=== PATIENT | female | born 1985 | race Caucasian/White ===

== ENCOUNTER 2020-12-13 14:12 | Emergency (ER) | payer SELFPAY ==
[2020-12-13 14:13] VITALS: BP 131/84; PULSE 87; RESP 16; TEMP 36.5; O2SAT 97; BMI 25.5
--- NOTE | 2020-12-13 14:41 | CT_ITS ---
STUDY: CT ABDOMEN AND PELVIS WITHOUT CONTRAST REASON FOR EXAM: Female, 35 years old. Pain RADIATION DOSAGE (If Supplied By Facility): CTDIvol = ( 7.72 ) mGy, DLP = ( 389.44 ) mGycm TECHNIQUE: Transaxial images were obtained from the dome of the diaphragm to the symphysis pubis without oral contrast, and without intravenous contrast. Sagittal and coronal images were reconstructed. Individualized dose optimization techniques were used for this CT. COMPARISON: None. FINDINGS: There are a few emphysematous blebs within the right lung base. There is minimal right lower lobe atelectasis. The visualized portions of the heart are within normal limits. The liver is enlarged. There is moderate free fluid within the abdomen and pelvis. Hounsfield units in the range of simple fluid. The gallbladder appears partially contracted. Normal spleen. Normal pancreas. Normal bilateral adrenal glands. Normal right kidney. Normal left kidney. Normal visualized stomach. There are distended loops of small bowel in the left upper quadrant. There is a thick walled appearance of the small bowel throughout. There is lesser caliber large bowel. There is an edematous appearance of the descending colon with wall thickening. The appendix is visualized and appears normal. Normal abdominal aorta. Normal inferior vena cava. There multiple small 1 cm reactive retroperitoneal lymph nodes. There are reactive appearing borderline lymph nodes in the mesentery. Normal urinary bladder. Normal visualized uterus. There is edema of the anterior abdominal wall. There are diffuse degenerative changes of the visualized lumbar spine. At the level of T12-L1 there is disc space narrowing and mild neural foramina narrowing mild central stenosis. CT/Abdomen/Pelvis without Cont IMPRESSION: Moderate to severe Free fluid/ascites. This accompanies significant wall thickening of the small bowel with distention. Consider diffuse enteritis with inflammatory ascites. Consider underlying inflammatory bowel disease including Crohn''s disease. The differential would include the possibility of ascites and small bowel edema although inflammatory change into radius is thought to be more likely. Otherwise mild to moderate constipation and no appendicitis. Electronically Signed: Amy Das MD at 15:59 EDT Tel , Service support ,
--- NOTE | 2020-12-13 14:41 | EX.ED.DYSGE1 ---
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 She states that she normally will get a flare of this and consist of diarrhea which she has had over the last couple of weeks. Patient states that her diarrhea usually resolves and her abdomen gets less swollen. She states that her diarrhea is improving and her abdomen is not improving. Patient does describe flank pain in the right flank for the last couple of weeks which is intermittent. Patient denies urinary complaints. She denies vaginal complaints. She still has mild diarrhea. Patient denies any liver problems. She states she is not a drinker. Patient has no history of Crohn's or ulcerative colitis. Patient has not seen a GI doctor since she was 20. She has not seen a primary care physician in many years. She states she has not seen any physician since she delivered her last child 5 years ago. [facility] Medical History (Updated 12/13/20 @ 15:06 by Dena Holder) Borderline diabetes Home Medications furosemide [Lasix] 20 mg PO DAILY #13 tab 12/13/20 [Rx Last Taken Unknown] spironolactone 50 mg PO DAILY #13 tab 12/13/20 [Rx Last Taken Unknown] Allergy/AdvReac Type Severity Reaction Status Date / Time acetaminophen [From Percocet] AdvReac Angioedema Verified 12/13/20 14:16 hydrocodone AdvReac Angioedema Verified 12/13/20 14:16 oxycodone AdvReac Angioedema Verified 12/13/20 14:16 Sulfa (Sulfonamide AdvReac Angioedema Verified 12/13/20 14:16 Antibiotics) Surgical History (Updated 12/13/20 @ 15:06 by Dena Holder) H/O section Social History Smoking Status: Never smoker ROS ROS ED Constitutional Constitutional ED: Denies chills, fever(s) or sweats Eyes Eyes: Denies blurry vision ENT ENT ED: Denies rhinorrhea or sore throat Cardiovascular Cardiovascular: Denies chest pain or palpitations Respiratory/Chest Respiratory/Chest: Denies cough, dyspnea or sputum Gastrointestinal Gastrointestinal: Reports abdominal pain, diarrhea, nausea and vomiting Genitourinary Genitourinary ED: Denies dysuria or hematuria Musculoskeletal Musculoskeletal: Denies arthralgias or myalgias Integumentary Denies abscess or rash Neurologic Neurologic: Denies headache(s) or paresthesias Psychiatric Psychiatric: Denies anxiety or depression EXAM Physical Exam Const Vital Signs: 12/13/20 14:13 12/13/20 15:04 12/13/20 17:00 Temperature 97.7 F L 97.2 F L 98.5 F Temperature Source Temporal Temporal Oral Pulse Rate 87 88 80 Respiratory Rate 16 15 16 Blood Pressure 131/84 H 130/81 H 137/91 H Blood Pressure Mean 99 97 106 Pulse Ox 97 97 97 Oxygen Delivery Method Room Air Room Air Room Air Positive well nourished General Appearance ED: NAD; Negative for pallor HEENT Reports moist mucous membranes Negative for trauma Eyes PERRL and EOMs intact bilaterally General Eye ED: Negative for pale conjunctiva or scleral icterus Resp normal respiratory effort and clear to auscultation bilaterally Cardio regular rate and regular rhythm GI non-tender Inspection: abdominal distention Auscultation: hypoactive bowel sounds Back/Spine General Back: CVA tenderness right Extremity normal to inspection General Extremety ED: Negative for tenderness Neuro oriented x3 and CN's II-XII intact bilaterally Sensorium / Orientation: alert Psych mental status grossly normal Skin no rashes or lesions noted and no wounds General Skin Exam: Negative for jaundice or pallor MDM MDM MDM Narrative Medical decision making narrative: Patient presenting with ascites which she states is an acute on chronic issue. She states her diarrhea usually resolves in her stomach swelling does go down. 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 The last physician she saw was when she gave 5 years ago. Patient's vital signs are stable and she is afebrile. Lab work today shows a normal white blood cell count of 4.6, hemoglobin 13.1, K 31.0, platelets 368. Renal function and electrolytes are normal with exception of elevated chloride at 112. Glucose is 249 without anion gap. AST and ALT are slightly elevated however her other LFTs are normal. Her albumin is 2.4 and she states this is normal for her. Patient states in the past she has been treated with albumin for the symptoms but this is distantly many years ago. CT of the abdomen pelvis shows moderate to severe ascites as well as findings with diffuse enteritis. Patient has no history of UC or Crohn's colitis. I discussed the case with Dr. Middleton at [facility] who recommended putting the patient on Lasix 20 mg p.o. daily x2 weeks as well as spironolactone 50 mg p.o. daily x2 weeks and he would see her in follow-up. She was given his phone number. Patient is given return precautions. Impression: 1. Ascites 2. History of protein loss enteritis 3. Hematuria Lab Data Attestation: I reviewed the patient's lab results. Labs: Laboratory Results - last 24 hr 12/13/20 12/13/20 12/13/20 14:45 14:48 15:12 WBC 4.6 RBC 4.09 L Hgb 13.1 Hct 38.0 MCV 92.9 MCH 32.0 MCHC 34.5 RDW Std Deviation 41.9 RDW Coeff of Miguel 12.3 Plt Count 368 MPV 9.8 Immature Gran % (Auto) 0.200 Neut % (Auto) 81.5 H Lymph % (Auto) 8.1 L [place] % (Auto) 7.8 Eos % (Auto) 2.0 Baso % (Auto) 0.4 Absolute Neuts (auto) 3.7 Absolute Lymphs (auto) 0.37 L Nucleated RBC % 0 Differential Comment SCANNED Platelet Estimate ADEQUATE RBC Morphology NORM C+C Sodium 143 Potassium 4.0 Chloride 112 H Carbon Dioxide 25.0 Anion Gap 6 BUN 10 Creatinine 0.42 L Estim Creat Clear Calc 166.62 Est GFR (MDRD) Af Amer 223 Est GFR (MDRD) Non-Af 185 BUN/Creatinine Ratio 23.8 H Glucose 249 H Calcium 7.5 L Total Bilirubin 0.20 Direct Bilirubin 0.07 AST 54 H ALT 78 H Alkaline Phosphatase 91 Total Protein 5.3 L Albumin 2.4 L Globulin 2.9 Lipase 116 Urine Color Yellow Urine Clarity Sl. Cloudy Urine pH 5.0 Ur Specific [place] 1.025 Urine Protein 30 H Urine Glucose (UA) 250 H Urine Ketones 5 H Urine Occult Blood 50 H Urine Nitrite Negative Urine Bilirubin Negative Urine Urobilinogen Normal Ur Leukocyte Esterase Negative Urine RBC 5-10 SEEN Urine WBC 0 SEEN Ur Squamous Epith Cells 5-10 SEEN Amorphous Sediment 1+ URATE Urine Bacteria 0 SEEN Urine Mucus 0 SEEN Radiography Diagnostic Testing: Radiology Impression Abdomen/Pelvis CT 12/13/20 14:41 IMPRESSION: Moderate to severe Free fluid/ascites. This accompanies significant wall thickening of the small bowel with distention. Consider diffuse enteritis with inflammatory ascites. Consider underlying inflammatory bowel disease including Crohn''s disease. The differential would include the possibility of ascites and small bowel edema although inflammatory change into radius is thought to be more likely. Otherwise mild to moderate constipation and no appendicitis. Electronically Signed: Amy Das MD at 15:59 EDT Tel , Service support , Discharge Plan Triage Chief Complaint: Flank Pain ED Provider: Angel Ya Dx/Rx/DC Orders Instructions: ED Ascites Prescriptions: New furosemide [Lasix] 20 mg tablet 20 mg PO DAILY Qty: 13 RF: 0 spironolactone 50 mg tablet 50 mg PO DAILY Qty: 13 RF: 0 Primary Care Provider: Care Physician,No Primary Referrals: Care Physician,No Primary [Primary Care Provider] - Activity Restrictions/Additional Instructions: I discussed your case with Dr. Middleton from [facility] who is currently on-call for gastrointestinal services. He recommended putting you on Lasix 20 mg p.o. daily as well as spironolactone 50 mg p.o. daily for 2 weeks. He states that he is happy to see you in follow-up. His phone number is [phone]. Please call for an appointment. Return for any new or worsening symptoms as discussed. Disposition Disposition: Home, Self Care
[2020-12-13 14:57] LABS: Absolute Lymphocyte Count 0.37 X10^3/uL (0.83-4.51); Absolute Neutrophil Count 3.7 X10^3/uL (2.0-7.7); Basophil# 0.02 X10^3/uL; Basophil% 0.4 % (0-1); Eosinophil# 0.09 X10^3/uL; Hemoglobin 13.1 g/dL (12.0-15.0); Lymphocyte # 0.37 X10^3/ul (0.83-4.51); Lymphocyte % 8.1 % (19-41); Mean Corp Hgb Conc 34.5 g/dL (32-36); Mean Corpuscular Volume 92.9 fL (81-99); Mean Platelet Vol. 9.8 fl (6.2-12.0); Monocyte# 0.36 X10^3/uL; Monocyte% 7.8 % (0-10); NRBC Flagged by Analyzer 0 % (0-5); Neutrophil # 3.74 X10^3/uL (2.7-7.7); Neutrophil % 81.5 % (47-70); POSITIVE DIFFERENTIAL YES; Platelet Count 368 K/mm3 (150-450); RBC Distribution Width CV 12.3 % (11.6-14.6); RBC Distribution Width SD 41.9 fl (35.1-43.9); Red Blood Count 4.09 M/mm3 (4.2-5.4); White Blood Count 4.6 K/mm3 (4.4-11.0)
[2020-12-13 14:58] LABS: Differential Indicated SCAN CRITERIA MET
[2020-12-13 15:04] VITALS: BP 130/81; PULSE 88; RESP 15; TEMP 36.2; O2SAT 97
[2020-12-13 15:16] LABS: AST(SGOT) 54 U/L (15-37); Alanine Aminotransfer ALT/SGPT 78 U/L (13-56); Albumin, Serum 2.4 g/dL (3.2-5.0); Alkaline Phosphatase 91 U/L (45-117); Anion Gap 6 (5-15); BUN 10 mg/dL (7-18); BUN/Creat Ratio 23.8 RATIO (10-20); Bilirubin, Direct 0.07 mg/dL (0.00-0.30); Calcium,Total 7.5 mg/dL (8.5-10.1); Chloride 112 mmol/L (98-107); Creatinine, Serum 0.42 mg/dL (0.55-1.02); EST Glomerular Filtration Rate 185 mL/min (>60); Est Glom Filt Rate - Afr Amer 223 mL/min (>60); Estimated Creatinine Clearance 166.62 ml/min; Globulin 2.9 g/dL (2.2-4.2); Glucose 249 mg/dL (74-106); Lipase 116 U/L (73-393); Protein, Total 5.3 g/dL (6.4-8.2); Sodium Level 143 mmol/L (136-145)
[2020-12-13 15:28] LABS: Bacteria 0 SEEN /hpf (None Seen); Mucous, Urine 0 SEEN /hpf (<or=2+); White Blood Cells 0 SEEN /hpf (0-5)
[2020-12-13 15:29] LABS: Color, Urine Yellow (Yellow); Glucose, Dipstick 250 mg/dl (Normal); Ketone-Dipstick 5 mg/dl (Negative); Leukocyte Esterase-Dipstick Negative /ul (Negative); Nitrite-Dipstick Negative (Negative); Occult Blood-Urine 50 /ul (Negative); Protein-Dipstick 30 mg/dl (Negative); Specific Gravity, Urine 1.025 (1.002-1.030); Urine Bilirubin Dipstick Negative (Negative); Urine Clarity Sl. Cloudy (Clear); Urine Urobilinogen Normal (Normal)
[2020-12-13 15:41] LABS: Amorphous Sediment 1+ URATE; Red Blood Cells-Urine 5-10 SEEN /hpf (0-5); Squamous Epithelial Cells - UA 5-10 SEEN /hpf (5-10)
[2020-12-13 16:38] LABS: Differential Comment SCANNED; Platelet Estimate ADEQUATE (ADEQ); Red Cell Morphology NORM C+C NORMAL (NORM C&C)
[2020-12-13 17:00] VITALS: BP 137/91; PULSE 80; RESP 16; TEMP 36.9; O2SAT 97
[2020-12-13 18:19] VITALS: BP 130/79; PULSE 79; RESP 17; O2SAT 97
[2020-12-13] MEDS: Spironolactone 50 MG Tablet PO (18:27)
[2020-12-13] MEDS: Furosemide 20 MG Tablet PO (18:27)
== END 2020-12-13 18:30 | disposition home or self-care (01) ==
PROVIDERS: Emergency Provider Student in an Organized Health Care Education/Training Program
DX: R18.8 Other ascites (principal); R31.9 Hematuria, unspecified; K52.89 Other specified noninfective gastroenteritis and colitis
CPT/HCPCS: 74176; 80048; 80076; 81001; 83690; 85025; 99284; A4216

== ENCOUNTER 2021-01-17 05:15 | Emergency (ER) | payer SELFPAY ==
[2021-01-17 05:15] VITALS: BP 122/79; PULSE 89; RESP 20; TEMP 37.6; O2SAT 95; BMI 24.5
[2021-01-17 05:18] VITALS: BP 122/79; PULSE 89; RESP 20; TEMP 37.6; O2SAT 95
--- NOTE | 2021-01-17 05:42 | EX.ED.DYSGE1 ---
HPI History of Present Illness Chief Complaint: Abd Pain Narrative Narrative: Patient is a 35-year-old female who states she has a history of a protein deficiency syndrome. She states she was diagnosed with Covid about 10 days ago and this has since caused her syndrome to flareup. She states she has had generalized abdominal pain with persistent diarrhea ever since her Covid diagnosis. She states she will have symptoms like this in the past when her electrolytes are off or she is dehydrated. She states that as she has been trying [id number] medications with minimal symptom improvement she is concerned she may need IV treatment and therefore comes in for evaluation [facility] Medical History Borderline diabetes Protein deficiency Home Medications dexamethasone [Decadron] 6 mg PO DAILY #10 tab 01/17/21 [Rx Last Taken Unknown] hyoscyamine sulfate [Levsin] 0.125 mg PO TID PRN #30 tab 01/17/21 [Rx Last Taken Unknown] hyoscyamine sulfate [Levsin] 0.125 mg PO TID PRN PRN 01/17/21 [History Last Taken Unknown] Allergy/AdvReac Type Severity Reaction Status Date / Time acetaminophen [From Percocet] AdvReac Angioedema Verified 01/17/21 05:19 guaifenesin [From Mucinex] AdvReac Other Verified 01/17/21 05:19 hydrocodone AdvReac Angioedema Verified 01/17/21 05:19 oxycodone AdvReac Angioedema Verified 01/17/21 05:19 Sulfa (Sulfonamide AdvReac Angioedema Verified 01/17/21 05:19 Antibiotics) Surgical History H/O section Social History Smoking Status: Never smoker ROS ROS ED Constitutional Constitutional ED: Reports fever(s); Denies chills ENT ENT ED: Denies sore throat Cardiovascular Cardiovascular: Denies chest pain Respiratory/Chest Respiratory/Chest: Denies cough or dyspnea Gastrointestinal Gastrointestinal: Reports abdominal pain and diarrhea; Denies nausea or vomiting Genitourinary Genitourinary ED: Denies dysuria Musculoskeletal Musculoskeletal: Denies myalgias Integumentary Denies rash Neurologic Neurologic: Denies headache(s) Hematologic/Lymphatic Hematologic/Lymphatic: Denies easy bleeding or easy bruising EXAM Physical Exam Const Vital Signs: 01/17/21 05:15 01/17/21 05:18 Temperature 99.7 F H 99.7 F H Temperature Source Temporal Temporal Pulse Rate 89 89 Respiratory Rate 20 H 20 H Blood Pressure 122/79 H 122/79 H Blood Pressure Mean 93 93 Pulse Ox 95 95 Positive well nourished and well developed General Appearance ED: well developed HEENT HEENT Narrative: Mucous membranes are dry and tacky Eyes PERRL and EOMs intact bilaterally Neck supple Neck Narrative: Positive anterior cervical lymphadenopathy Resp normal respiratory effort and clear to auscultation bilaterally Cardio regular rate and regular rhythm GI non-distended GI Narrative: Abdomen is soft and nondistended with hyperactive bowel sounds. There is mild diffuse pain on palpation without voluntary guarding or rigidity Palpation: soft Extremity normal to inspection Neuro oriented x3 and CN's II-XII intact bilaterally Sensorium / Orientation: alert Psych mental status grossly normal Skin no rashes or lesions noted Skin Narrative: Skin turgor is slightly increased MDM MDM MDM Narrative Medical decision making narrative: Patient presented to the ER with a low-grade temperature most consistent with her Covid diagnosis. As she stated this was a recurrent problem for her based on her protein deficiency syndrome I did elect to perform basic laboratory studies but felt no need for a CT scan at this time. Work-up revealed no clinically significant findings and after IV hydration and treatment of her pain she reported improvement of symptoms. Therefore at this time as work-up reveals no acute findings and her abdomen remained soft and nonsurgical on exam I do not feel there is need for further work-up and she is safe to discharge. Lab Data Labs: Laboratory Results - last 24 hr 01/17/21 01/17/21 01/17/21 05:25 05:25 06:03 WBC 3.6 L RBC 4.02 L Hgb 12.6 Hct 36.9 L MCV 91.8 MCH 31.3 MCHC 34.1 RDW Std Deviation 39.6 RDW Coeff of Miguel 11.7 Plt Count 258 MPV 10.1 Immature Gran % (Auto) 0.300 Neut % (Auto) 83.3 H Lymph % (Auto) 10.8 L [place] % (Auto) 5.0 Eos % (Auto) 0.6 Baso % (Auto) 0.0 Absolute Neuts (auto) 3.0 Absolute Lymphs (auto) 0.39 L Nucleated RBC % 0 Differential Comment SCANNED Sodium 137 Potassium 4.1 Chloride 108 H Carbon Dioxide 22.0 Anion Gap 7 BUN 8 Creatinine 0.39 L Estim Creat Clear Calc 172.31 Est GFR (MDRD) Af Amer 242 Est GFR (MDRD) Non-Af 200 BUN/Creatinine Ratio 20.4 H Glucose 249 H Calcium 6.7 L Total Bilirubin 0.20 Direct Bilirubin 0.08 AST 51 H ALT 49 Alkaline Phosphatase 138 H Total Protein 4.6 L Albumin 1.4 L Globulin 3.2 Lipase 129 Urine Test Negative Discharge Plan Triage Chief Complaint: Abd Pain ED Provider: Rashad Weber Dx/Rx/DC Orders Clinical Impression: COVID-19, Dehydration, Diarrhea Instructions: Coronavirus Disease 2019 (COVID-19): Caring for Yourself or Others, Dehydration Prescriptions: New dexamethasone [Decadron] 6 mg tablet 6 mg PO DAILY Qty: 10 RF: 0 hyoscyamine sulfate [Levsin] 0.125 mg tablet 0.125 mg PO TID PRN (Reason: abdomial pin) Qty: 30 RF: 0 No Action hyoscyamine sulfate [Levsin] 0.125 mg Tablet 0.125 mg PO TID PRN PRN (Reason: STOMACH CRAMPS) RF: 0 Primary Care Provider: Care Physician,No Primary Referrals: Elsa Solomon MD [STAFF PHYSICIAN] - 3-5 Days if not improving Care Physician,No Primary [Primary Care Provider] - Disposition Disposition: Home, Self Care
[2021-01-17] MEDS: 0.9% Normal Saline 1,000 ML 999 ML IV (05:44)
[2021-01-17] MEDS: Ondansetron 4 MG/2 ML Vial IV (05:44)
[2021-01-17] MEDS: Morphine 4 MG/ML Syringe IV ×2 (05:44→07:47)
[2021-01-17] MEDS: dexAMETHasone 10 MG/ML Vial IV (05:44)
[2021-01-17 06:02] LABS: Absolute Lymphocyte Count 0.39 X10^3/uL (0.83-4.51); Eosinophil# 0.02 X10^3/uL; Eosinophils% 0.6 % (0-5); Hematocrit 36.9 % (37-47); Hemoglobin 12.6 g/dL (12.0-15.0); Lymphocyte # 0.39 X10^3/ul (0.83-4.51); Lymphocyte % 10.8 % (19-41); Mean Corp Hgb Conc 34.1 g/dL (32-36); Mean Corpuscular Hgb 31.3 pg (27.0-32.0); Mean Corpuscular Volume 91.8 fL (81-99); Mean Platelet Vol. 10.1 fl (6.2-12.0); Monocyte# 0.18 X10^3/uL; NRBC Flagged by Analyzer 0 % (0-5); Neutrophil # 3.01 X10^3/uL (2.7-7.7); Neutrophil % 83.3 % (47-70); POSITIVE DIFFERENTIAL YES; Platelet Count 258 K/mm3 (150-450); RBC Distribution Width CV 11.7 % (11.6-14.6); RBC Distribution Width SD 39.6 fl (35.1-43.9); Red Blood Count 4.02 M/mm3 (4.2-5.4); White Blood Count 3.6 K/mm3 (4.4-11.0)
[2021-01-17 06:05] LABS: Differential Indicated SCAN CRITERIA MET
[2021-01-17 06:20] LABS: AST(SGOT) 51 U/L (15-37); Alanine Aminotransfer ALT/SGPT 49 U/L (13-56); Albumin, Serum 1.4 g/dL (3.2-5.0); Alkaline Phosphatase 138 U/L (45-117); Anion Gap 7 (5-15); BUN 8 mg/dL (7-18); BUN/Creat Ratio 20.4 RATIO (10-20); Bilirubin, Direct 0.08 mg/dL (0.00-0.30); Calcium,Total 6.7 mg/dL (8.5-10.1); Chloride 108 mmol/L (98-107); Creatinine, Serum 0.39 mg/dL (0.55-1.02); EST Glomerular Filtration Rate 200 mL/min (>60); Est Glom Filt Rate - Afr Amer 242 mL/min (>60); Estimated Creatinine Clearance 172.31 ml/min; Globulin 3.2 g/dL (2.2-4.2); Glucose 249 mg/dL (74-106); Lipase 129 U/L (73-393); Potassium 4.1 mmol/L (3.5-5.1); Protein, Total 4.6 g/dL (6.4-8.2); Sodium Level 137 mmol/L (136-145)
[2021-01-17 06:25] LABS: Internal QC Validated? YES +Cl - CLEAR BKGD; Pregnancy, Urine Negative Negative
[2021-01-17 06:25] LABS: Differential Comment SCANNED
[2021-01-17 07:47] VITALS: BP 117/58; PULSE 90; RESP 16; TEMP 35
== END 2021-01-17 08:19 | disposition home or self-care (01) ==
PROVIDERS: Emergency Provider Emergency Medicine
DX: U07.1 COVID-19 (principal); E86.0 Dehydration
CPT/HCPCS: 80048; 80076; 81025; 83690; 85025; 96361; 96374; 96375; 99283; J7030; A4216; J2405

== ENCOUNTER → 2021-09-02 | Outpatient (CLI) | payer OTHER, SELFPAY ==
[2021-09-02 18:19] LABS: ALB/GLOB Ratio 0.8 RATIO (0.9-2.4); AST(SGOT) 24 U/L (15-37); Alanine Aminotransfer ALT/SGPT 41 U/L (13-56); Alkaline Phosphatase 59 U/L (45-117); Anion Gap 4 (5-15); BUN 12 mg/dL (7-18); BUN/Creat Ratio 29.2 RATIO (10-20); Calcium,Total 7.4 mg/dL (8.5-10.1); Chloride 110 mmol/L (98-107); Cholesterol 131 mg/dL (200); Creatinine, Serum 0.41 mg/dL (0.55-1.02); EST Glomerular Filtration Rate 189 mL/min (>60); Est Glom Filt Rate - Afr Amer 228 mL/min (>60); Globulin 2.5 g/dL (2.2-4.2); Glucose 187 mg/dL (74-106); High Density Lipoprotein 41 mg/dL; Magnesium 1.4 mg/dL (1.6-2.6); Potassium 3.7 mmol/L (3.5-5.1); Prealbumin 18.7 mg/dL (20.0-40.0); Protein, Total 4.5 g/dL (6.4-8.2); Sodium Level 139 mmol/L (136-145); Thyroid Stim Hormone (TSH) 1.85 uIU/mL (0.358-3.74); Triglycerides 129 mg/dL; Very Low Density Lipoprotein 26 mg/dL (5-40)
[2021-09-02 18:31] LABS: Hemoglobin A1c 7.4 % (3.8-5.6)
== END | disposition home or self-care (01) ==
LOC: MFPLAB 15:18
PROVIDERS: PCP Family Medicine; Referring Provider Family Medicine; Visit Provider Family Medicine
DX: R19.7 Diarrhea, unspecified (principal); E11.9 Type 2 diabetes mellitus without complications
CPT/HCPCS: 36415; 80053; 80061; 83036; 83735; 84134; 84443

== ENCOUNTER → 2021-09-03 | Outpatient (CLI) | payer OTHER, SELFPAY | END | disposition home or self-care (01) | LOC: MFPLAB 13:50 → LABSPEC 13:53 | PROVIDERS: PCP Family Medicine; Referring Provider Family Medicine; Visit Provider Family Medicine | DX: R19.7 Diarrhea, unspecified (principal); K90.49 Malabsorption due to intolerance, not elsewhere classified | CPT/HCPCS: 83630; 87177; 87209; 87493; 87506 ==

== ENCOUNTER → 2021-10-08 | Outpatient (CLI) | payer OTHER, SELFPAY ==
--- NOTE | 2021-10-08 07:19 | US_ITS ---
STUDY: ABDOMINAL ULTRASOUND - RIGHT UPPER QUADRANT REASON FOR VISIT: Female, 35 years old CIRRHOSIS TECHNIQUE: Ultrasound evaluation of the right upper quadrant was performed with real-time and static luu-scale imaging. TECHNICAL QUALITY: Adequate. COMPARISON: None. FINDINGS: Liver: The liver is moderately enlarged and measures 17.8 cm. There is increased echogenicity consistent with fatty infiltration. The bile ducts are within normal limits. There is hepatic color flow. The direction of portal flow is hepatopetal. There is no demonstrated mass lesion. Gallbladder: There is a contracted gallbladder. The gallbladder wall is slightly thickened and measures 3.2 mm. There is a negative sonographic Arzate''s sign. There is no pericholecystic fluid. There are no gallstones. Common Bile Duct (C.B.D.): The common bile duct measures 2.2 mm. Pancreas: There is diffuse atrophy of the pancreas. There is normal echogenicity of the pancreas. There is no demonstrated pancreatic mass or cyst. Right Kidney: Normal size of the right kidney. The right kidney measures 9.2 cm x 5 cm x 5.6 cm. Normal renal cortex. The right cortex measures 1.7 cm. There is no demonstrated renal mass or cyst. There is no right hydronephrosis. Small amount of ascites. US/Abdomen Limited IMPRESSION: Mild hepatomegaly and diffuse fatty infiltration of the liver. Small amount of ascites. Electronically Signed: Los Aguirre MD at 9:33 EDT ,
--- NOTE | 2021-10-08 07:19 | US_ITS ---
STUDY: ABDOMINAL ULTRASOUND - ELASTOGRAPHY REASON FOR VISIT: Female, 35 years old. History of cirrhosis. TECHNIQUE: Liver stiffness measurements were obtained on a Kuotus RS 85 ultrasound machine using a CA 1-7 probe following the SRU guidelines. 3 measurements were obtained using a 2-D-SWE method. The IQR/M was 15% suggesting a quality data set. TECHNICAL QUALITY: Adequate. COMPARISON: Comparison is made with prior study done earlier today. FINDINGS: Liver: Fatty infiltration of the liver. Median liver stiffness measured 18 kPa. US/Elastography Parenchyma/Organ IMPRESSION: Liver stiffness measures 18 kPa compatible with F3-F4 (Moderate to severe liver fibrosis) Metavir score. Electronically Signed: Los Aguirre MD at 9:52 EDT ,
== END | disposition home or self-care (01) ==
LOC: US 07:17
PROVIDERS: PCP Family Medicine; Referring Provider Family Medicine; Visit Provider Family Medicine
DX: K74.60 Unspecified cirrhosis of liver (principal); K76.0 Fatty (change of) liver, not elsewhere classified; R18.8 Other ascites
CPT/HCPCS: 76705; 76981

== ENCOUNTER → 2021-11-05 | Outpatient (CLI) | payer OTHER, SELFPAY ==
[2021-11-05 10:29] LABS: Prothrombin Time (Protime)PT. 13.2 SECONDS (11.7-14.9)
[2021-11-05 10:35] LABS: Absolute Neutrophil Count 4.5 X10^3/uL (2.0-7.7); Basophil# 0.01 X10^3/uL; Basophil% 0.2 % (0-1); Eosinophils% 1.8 % (0-5); Hematocrit 40.4 % (37-47); Lymphocyte % 9.1 % (19-41); Mean Corp Hgb Conc 34.7 g/dL (32-36); Mean Corpuscular Hgb 31.7 pg (27.0-32.0); Mean Corpuscular Volume 91.6 fL (81-99); Mean Platelet Vol. 10.1 fl (6.2-12.0); Monocyte# 0.39 X10^3/uL; Monocyte% 7.1 % (0-10); NRBC Flagged by Analyzer 0 % (0-5); Neutrophil # 4.46 X10^3/uL (2.7-7.7); Neutrophil % 81.4 % (47-70); POSITIVE DIFFERENTIAL YES; Platelet Count 419 K/mm3 (150-450); RBC Distribution Width CV 12.2 % (11.6-14.6); RBC Distribution Width SD 41.1 fl (35.1-43.9); Red Blood Count 4.41 M/mm3 (4.2-5.4); White Blood Count 5.5 K/mm3 (4.4-11.0)
[2021-11-05 10:43] LABS: Erythrocyte Sedimentation Rate 6 mm/hr (0-30)
[2021-11-05 10:53] LABS: Differential Indicated SCAN CRITERIA MET
[2021-11-05 11:00] LABS: ALB/GLOB Ratio 0.7 RATIO (0.9-2.4); AST(SGOT) 17 U/L (15-37); Alanine Aminotransfer ALT/SGPT 23 U/L (13-56); Alkaline Phosphatase 67 U/L (45-117); Anion Gap 7 (5-15); BUN 13 mg/dL (7-18); BUN/Creat Ratio 52.8 RATIO (10-20); Calcium,Total 7.4 mg/dL (8.5-10.1); Chloride 112 mmol/L (98-107); Creatinine, Serum 0.25 mg/dL (0.55-1.02); EST Glomerular Filtration Rate 341 mL/min (>60); Est Glom Filt Rate - Afr Amer 412 mL/min (>60); Globulin 2.7 g/dL (2.2-4.2); Glucose 106 mg/dL (74-106); Magnesium 1.8 mg/dL (1.6-2.6); Potassium 3.4 mmol/L (3.5-5.1); Prealbumin 23.6 mg/dL (20.0-40.0); Protein, Total 4.7 g/dL (6.4-8.2); Sodium Level 142 mmol/L (136-145)
[2021-11-05 11:03] LABS: CRP < 2.90 mg/L (0.0-3.0); Ferritin 16 ng/mL (8-252); LDH 121 U/L (84-246)
[2021-11-05 11:09] LABS: Hemoglobin A1c 5.7 % (3.8-5.6)
[2021-11-05 11:26] LABS: Platelet Estimate ADEQUATE (ADEQ); Red Cell Morphology NORM C+C NORMAL (NORM C&C)
[2021-11-05 11:28] LABS: HIV - WCH Non-Reactive (Nonreactive)
[2021-11-07 16:07] LABS: Endomysial Antibody IgA Negative (Negative); Immunoglobulin A 55 mg/dL (87-352)
[2021-11-07 18:07] LABS: t-Transglutaminase IgA <2 U/mL (0-3)
[2021-11-09 13:07] LABS: Anti-Centromere B Ab <0.2 AI (0.0-0.9); Anti-Chromatin <0.2 AI (0.0-0.9); Anti-Jo <0.2 AI (0.0-0.9); Anti-Scleroderma-70 AB <0.2 AI (0.0-0.9); RNP Ab 0.2 AI (0.0-0.9); SJOGREN'S Anti-SS-A test < 0.2 AI (0.0-0.9); SJOGREN'S Anti-SS-B test < 0.2 AI (0.0-0.9); Smith Ab <0.2 AI (0.0-0.9)
[2021-11-09 16:31] LABS: Anti-Mitochondrial AB <20.0 Units (0.0-20.0); Anti-dsDNA Ab <1 IU/mL (0-9)
[2021-11-11 15:08] LABS: Albumin 2.3 g/dL (2.9-4.4); Alpha-1-Globulins 0.2 g/dL (0.0-0.4); Alpha-2-Globulins 0.6 g/dL (0.4-1.0); Angiotensin Convert Enzyme 34 U/L (14-82); Ceruloplasmin 13.7 mg/dL (19.0-39.0); Cytoplasmic Ab (C-ANCA) <1:20 titer (Neg:<1:20); Gamma Globulin 0.4 g/dL (0.4-1.8); HEPATITIS B SURFACE AG Negative (Negative); Hep C Antibodies 0.1 s/co ratio (0.0-0.9); Hepatitis A IgM Antibody Negative (Negative); Hepatitis B Core AB IgM Negative (Negative); Immunoglobulin A 56 mg/dL (87-352); Immunoglobulin E 15 IU/mL (6-495); Immunoglobulin G 463 mg/dL (586-1602); PROEL- TOTAL PROTEIN 4.4 g/dL (6.0-8.5)
[2021-11-11 15:29] LABS: AFP, Tumor Marker 2.7 ng/mL (0.0-6.4); Anti-Smooth Muscle ABS 2 Units (0-19); Copper, Serum or Plasma 53 ug/dL (80-158); Haptoglobin 139 mg/dL (33-278); IMMUNOFIXATION RESULT,S Comment: (.); Immunoglobulin M 24 mg/dL (26-217); Perinuclear Ab (P-ANCA) <1:20 titer (Neg:<1:20)
== END | disposition home or self-care (01) ==
LOC: LAB 09:38
PROVIDERS: PCP Family Medicine; Referring Provider Internal Medicine Gastroenterology; Visit Provider Internal Medicine Gastroenterology
DX: K76.9 Liver disease, unspecified (principal); E46 Unspecified protein-calorie malnutrition; R19.7 Diarrhea, unspecified; E83.42 Hypomagnesemia
CPT/HCPCS: 36415; 80053; 80074; 82105; 82140; 82164; 82390; 82525; 82728; 82784; 82785; 83010; 83036; 83516; 83615; 83735; 84134; 84165; 85025; 85610; 85652; 86140; 86225; 86235; 86255; 86256; 86334; 86703

== ENCOUNTER → 2021-11-09 | Outpatient (CLI) | payer OTHER, SELFPAY ==
[2021-11-15 19:46] LABS: Calprotectin, Stool 101 ug/g (0-120)
[2021-11-16 20:07] LABS: Giardia Lamblia, Stool EIA Negative (Negative); Pancreatic Elastase, Fecal 58 (>200)
== END | disposition home or self-care (01) ==
PROVIDERS: PCP Family Medicine; Referring Provider Internal Medicine Gastroenterology; Visit Provider Internal Medicine Gastroenterology
DX: K76.9 Liver disease, unspecified (principal); K58.9 Irritable bowel syndrome, unspecified; R19.7 Diarrhea, unspecified
CPT/HCPCS: 82653; 83630; 83993; 87177; 87209; 87329; 87493; 87506

== ENCOUNTER → 2021-11-12 | Outpatient (CLI) | payer OTHER, SELFPAY ==
[2021-11-12 11:48] LABS: 24 Hour Urine Protein 81.9 mg/24HR (<150 MG/24HR); 24HR. UA Prot. Total Volume 1300 mL; Urine Protein (24 Hour) 6.3 mg/dL (<11.9)
== END | disposition home or self-care (01) ==
PROVIDERS: PCP Family Medicine; Referring Provider Internal Medicine Gastroenterology; Visit Provider Internal Medicine Gastroenterology
DX: R19.7 Diarrhea, unspecified (principal)
CPT/HCPCS: 81050; 84156

== ENCOUNTER → 2021-11-16 | Outpatient (CLI) | payer OTHER, SELFPAY | END | disposition home or self-care (01) | LOC: LAB 12:40 | PROVIDERS: PCP Family Medicine; Referring Provider Internal Medicine Gastroenterology; Visit Provider Internal Medicine Gastroenterology | DX: D83.9 Common variable immunodeficiency, unspecified (principal) | CPT/HCPCS: 36415; 82784; 82785; 82787; 84165 ==

== ENCOUNTER → 2022-05-12 | Outpatient (CLI) | payer MEDICAID, SELFPAY ==
[2022-05-12 10:25] LABS: Absolute Neutrophil Count 4.3 X10^3/uL (2.0-7.7); Basophil# 0.03 X10^3/uL; Basophil% 0.6 % (0-1); Eosinophil# 0.15 X10^3/uL; Eosinophils% 2.8 % (0-5); Hematocrit 42.5 % (37-47); Hemoglobin 13.7 g/dL (12.0-15.0); Lymphocyte % 7.5 % (19-41); Mean Corp Hgb Conc 32.2 g/dL (32-36); Mean Corpuscular Hgb 30.4 pg (27.0-32.0); Mean Corpuscular Volume 94.4 fL (81-99); Mean Platelet Vol. 9.8 fl (6.2-12.0); Monocyte# 0.46 X10^3/uL; Monocyte% 8.7 % (0-10); NRBC Flagged by Analyzer 0 % (0-5); Neutrophil # 4.25 X10^3/uL (2.7-7.7); POSITIVE DIFFERENTIAL YES; Platelet Count 450 K/mm3 (150-450); RBC Distribution Width CV 12.3 % (11.6-14.6); RBC Distribution Width SD 42.1 fl (35.1-43.9); White Blood Count 5.3 K/mm3 (4.4-11.0)
[2022-05-12 10:28] LABS: Differential Indicated SCAN CRITERIA MET
[2022-05-12 10:51] LABS: Hemoglobin A1c 6.5 % (3.8-5.6)
[2022-05-12 11:07] LABS: ALB/GLOB Ratio 0.7 RATIO (0.9-2.4); AST(SGOT) 22 U/L (15-37); Alanine Aminotransfer ALT/SGPT 38 U/L (13-56); Albumin, Serum 1.9 g/dL (3.2-5.0); Alkaline Phosphatase 130 U/L (45-117); Anion Gap 5 (5-15); BUN 16 mg/dL (7-18); BUN/Creat Ratio 56.5 RATIO (10-20); Calcium,Total 7.7 mg/dL (8.5-10.1); Chloride 113 mmol/L (98-107); Cholesterol 152 mg/dL (200); Creatinine, Serum 0.28 mg/dL (0.55-1.02); EST Glomerular Filtration Rate 289 mL/min (>60); Est Glom Filt Rate - Afr Amer 349 mL/min (>60); Globulin 2.9 g/dL (2.2-4.2); Glucose 109 mg/dL (74-106); High Density Lipoprotein 44 mg/dL; Potassium 4.6 mmol/L (3.5-5.1); Prealbumin 23.9 mg/dL (20.0-40.0); Protein, Total 4.8 g/dL (6.4-8.2); Sodium Level 141 mmol/L (136-145); Triglycerides 69 mg/dL; Very Low Density Lipoprotein 14 mg/dL (5-40)
[2022-05-12 11:08] LABS: Microalbumin,Random Urine < 5.0 mg/L (NO RANGE EST.)
== END | disposition home or self-care (01) ==
LOC: MFPLAB 09:30
PROVIDERS: PCP Family Medicine; Referring Provider Family Medicine; Visit Provider Family Medicine
DX: E46 Unspecified protein-calorie malnutrition (principal); K74.60 Unspecified cirrhosis of liver; E11.9 Type 2 diabetes mellitus without complications
CPT/HCPCS: 36415; 80053; 80061; 82043; 82140; 82570; 83036; 84134; 85025

== ENCOUNTER 2022-05-20 06:33 | Observation (INO) | payer OTHER, SELFPAY ==
[2022-05-20] VITALS (7 sets, daily range): BP systolic 112–132; BP diastolic 56–95; PULSE 67–90; RESP 14–18; TEMP 36.2–36.8; O2SAT 96–98; BMI 20.3; BMI 20.9
--- NOTE | 2022-05-20 07:32 | EDS_ITS ---
HPI HPI - GI History of Present Illness Chief Complaint: Abd Pain Informant: patient Abdominal Pain/Flank Pain Onset: Today Context: Sudden Onset Timing: Continuous and Waxes and wanes Quality: Aching, Cramping and Sharp Location: Epigastric, RUQ and LUQ Worsened by: Nothing Relieved by: - (Standing) Nausea/Vomiting/Emesis GI Symptom: Positive for Nausea and Vomiting Diarrhea/Melena/Hematochezia GI Symptom: Negative for Diarrhea, Melena or Hematochezia Associated Symptoms Associated Symptoms: Negative for Dysuria, Frequency or Hematuria Narrative Narrative: Presents with abdominal pain that began earlier this morning. Patient states it began suddenly. Patient states it has been constant but waxing and waning throughout the morning. Patient states her pain is over her upper abdomen. Patient states it is better when she is able to stand up. Patient states nothing makes it worse. Patient admits to some nausea and vomiting. Patient denies any hematemesis or coffee-ground emesis. Patient denies any diarrhea, melena, or hematochezia. Patient denies any urinary complaints. Patient denies any abnormal vaginal bleeding or discharge. [facility] Medical History Abdominal pain Borderline diabetes Bowel obstruction Diabetes Diarrhea Malabsorption due to intolerance, not elsewhere classified Protein deficiency Home Medications hyoscyamine sulfate 0.125 mg tablet (Levsin) 0.125 mg PO TID PRN abdomial pin #30 tabs 01/17/21 [Rx Last Taken 05/20/22] amoxicillin 500 mg capsule 500 mg PO BID ANTIBIOTIC 05/20/22 [History Last Taken 05/19/22] ertugliflozin 5 mg tablet (Steglatro) 5 mg PO DAILY DM 05/20/22 [History Last Taken 05/19/22] furosemide 40 mg tablet 40 mg PO DAILY FLUID 05/20/22 [History Last Taken 05/19/22] sxncil-iwvrtwhn-xqfijcm 24,000-76,000-120,000 unit capsule,delayed rel (Creon) 7 cap PO DAILY PANCREAS 05/20/22 [History Last Taken 05/19/22] magnesium oxide 400 mg (241.3 mg magnesium) tablet 400 mg PO DAILY SUPPLEMENT 05/20/22 [History Last Taken 05/19/22] sertraline 50 mg tablet 50 mg PO DAILY MOOD/ANXIETY 05/20/22 [History Last Taken 05/19/22] Allergy/AdvReac Type Severity Reaction Status Date / Time acetaminophen [From Percocet] AdvReac Angioedema Verified 05/20/22 06:36 guaifenesin [From Mucinex] AdvReac Other Verified 05/20/22 06:36 hydrocodone AdvReac Angioedema Verified 05/20/22 06:36 oxycodone AdvReac Angioedema Verified 05/20/22 06:36 Sulfa (Sulfonamide AdvReac Angioedema Verified 05/20/22 06:36 Antibiotics) Family History (Updated 10/14/21 @ 11:59 by Shakira Wang) Father Diabetes Father Diabetes Surgical History H/O section Social History Smoking Status: Never smoker alcohol intake: never ROS ROS ED Constitutional Constitutional ED: Denies chills or fever(s) Eyes Eyes: Denies blurry vision or change in vision ENT ENT ED: Denies rhinorrhea or sore throat Cardiovascular Cardiovascular: Denies chest pain or palpitations Respiratory/Chest Respiratory/Chest: Denies cough or dyspnea Gastrointestinal Gastrointestinal: Reports abdominal pain, nausea and vomiting; Denies diarrhea or melena Genitourinary Genitourinary ED: Denies dysuria or hematuria Musculoskeletal Musculoskeletal: Denies back pain or neck pain Integumentary Denies abscess or rash Neurologic Neurologic: Denies headache(s) or weakness Allergic/Immunologic Allergic/Immunologic ED: Denies mouth swelling or urticaria EXAM Physical Exam Const Vital Signs: 05/20/22 06:34 05/20/22 09:43 05/20/22 11:56 Temperature 97.1 F L Temperature Source Temporal Pulse Rate 78 67 83 Respiratory Rate 18 14 Blood Pressure 127/95 H 121/75 H 127/81 H Blood Pressure Mean 105 90 96 Pulse Ox 98 97 Oxygen Delivery Method Room Air Positive well nourished and well developed General Appearance ED: well developed HEENT Reports moist mucous membranes Neck supple and no JVD Resp normal respiratory effort and clear to auscultation bilaterally Cardio regular rate, regular rhythm and no murmurs GI normal to inspection, nondistended, normoactive bowel sounds Palpation: soft and tender epigastric, RLQ and RUQ; Negative for guarding or rebound tenderness present Extremity normal to inspection General Extremety ED: Negative for edema or tenderness General Extremity: Negative for edema Neuro oriented x3, CN's II-XII intact bilaterally and no sensory deficits noted Sensorium / Orientation: alert Motor Exam: strength 5/5 throughout Psych mental status grossly normal Skin no rashes or lesions noted MDM MDM MDM Narrative Medical decision making narrative: Patient was given IV fluids, morphine, and Zofran. CBC was obtained and was reviewed. There is a leukocytosis of 17.8 with a hemoglobin of 17.1 and hematocrit of 48.9. Platelets were also slightly elevated at 581. Comprehensive metabolic profile was obtained and was reviewed. Glucose was 244. Electrolytes were normal. Anion gap was normal. Alkaline phosphatase was slightly elevated at 139. Lipase was normal at 141. Serum hCG was obtained and was negative. Analysis was obtained and was reviewed. There is no evidence of urinary tract infection or hematuria. CT scan of the abdomen pelvis was obtained. On my interpretation, there are multiple dilated loops of small bowel. There is stool in the small bowel. There is no distention of the colon. Radiologist also interpreted the CT scan and agrees. Case was discussed with Dr. Denny from general surgery. She recommended placing an NG tube. This was ordered. Case was discussed with the hospitalist. He will admit the patient to his service. Patient understood and was agreeable with the plan. Patient was given a dose of Ativan prior to NG tube placement. Patient was also given Afrin nasal spray and topical lidocaine for NG tube placement. After attempts to place the NG tube unsuccessfully, patient refused any further attempts at NG tube placement. Lab Data Attestation: I reviewed the patient's lab results. Labs: Laboratory Results - last 24 hr 05/20/22 05/20/22 05/20/22 06:55 06:55 06:55 WBC 17.8 H RBC 5.48 H Hgb 17.1 H Hct 48.9 H MCV 89.2 MCH 31.2 MCHC 35.0 RDW Std Deviation 41.9 RDW Coeff of Miguel 13.0 Plt Count 581 H MPV 10.0 Immature Gran % (Auto) 0.800 Neut % (Auto) 88.2 H Lymph % (Auto) 5.3 L [place] % (Auto) 4.3 Eos % (Auto) 1.1 Baso % (Auto) 0.3 Absolute Neuts (auto) 15.7 H Absolute Lymphs (auto) 0.94 Nucleated RBC % 0 Sodium 138 Potassium 3.6 Chloride 105 Carbon Dioxide 24.0 Anion Gap 9 BUN 18 Creatinine 0.58 Estim Creat Clear Calc 98.60 Est GFR (MDRD) Af Amer 152 Est GFR (MDRD) Non-Af 126 BUN/Creatinine Ratio 30.9 H Glucose 244 H Calcium 8.1 L Total Bilirubin 0.30 AST 18 ALT 52 Alkaline Phosphatase 139 H Total Protein 6.2 L Albumin 2.6 L Globulin 3.6 Albumin/Globulin Ratio 0.7 L Lipase 141 Serum , Qual NEGATIVE Urine Color Urine Clarity Urine pH Ur Specific [place] Urine Protein Urine Glucose (UA) Urine Ketones Urine Occult Blood Urine Nitrite Urine Bilirubin Urine Urobilinogen Ur Leukocyte Esterase Urine RBC Urine WBC Ur Squamous Epith Cells Urine Bacteria Urine Mucus 05/20/22 08:50 WBC RBC Hgb Hct MCV MCH MCHC RDW Std Deviation RDW Coeff of Miguel Plt Count MPV Immature Gran % (Auto) Neut % (Auto) Lymph % (Auto) [place] % (Auto) Eos % (Auto) Baso % (Auto) Absolute Neuts (auto) Absolute Lymphs (auto) Nucleated RBC % Sodium Potassium Chloride Carbon Dioxide Anion Gap BUN Creatinine Estim Creat Clear Calc Est GFR (MDRD) Af Amer Est GFR (MDRD) Non-Af BUN/Creatinine Ratio Glucose Calcium Total Bilirubin AST ALT Alkaline Phosphatase Total Protein Albumin Globulin Albumin/Globulin Ratio Lipase Serum , Qual Urine Color Yellow Urine Clarity Sl. Cloudy Urine pH 6.0 Ur Specific [place] 1.015 Urine Protein 15 H Urine Glucose (UA) 1000 H Urine Ketones Negative Urine Occult Blood Negative Urine Nitrite Negative Urine Bilirubin Negative Urine Urobilinogen Normal Ur Leukocyte Esterase Negative Urine RBC 0 SEEN Urine WBC 0 SEEN Ur Squamous Epith Cells 0-5 SEEN Urine Bacteria 0 SEEN Urine Mucus 0 SEEN Radiography Diagnostic Testing: Clinical Impression(s) from Imaging Studies Abdomen/Pelvis CT 05/20/22 07:37 IMPRESSION: Distention of the distal small bowel with fluid and fecal laceration of the contents within the distal small bowel. There is evidence of a thickening of the small bowel wall. This has progressed as compared to prior study. Mild hepatomegaly. Small bilateral ovarian cysts. Electronically Signed: Los Aguirre MD at 9:51 EST , Discharge Plan Triage Chief Complaint: Abd Pain ED Provider: Jeff Walker Dx/Rx/DC Orders Clinical Impression: Small bowel obstruction, Abdominal pain Primary Care Provider: Henry Wise Disposition Disposition: Acute Care Hospital [facility]
--- NOTE | 2022-05-20 07:37 | CT_ITS ---
STUDY: CT ABDOMEN AND PELVIS WITH CONTRAST REASON FOR EXAM: Female, 36 years old. Abdominal pain . Nausea. Elevated white cell count as well as history of prior bowel obstruction. -- IV PO Contrast RADIATION DOSAGE (If Supplied By Facility): CTDIvol = ( 11.22 ) mGy, DLP = ( 308.51 ) mGycm TECHNIQUE: Transaxial images were obtained from the dome of the diaphragm to the symphysis pubis without oral contrast. Oral and amp; IV Gastrografin and amp; 75mL Isovue-370 was administered. Sagittal and coronal images were reconstructed. Individualized dose optimization techniques were used for this CT. COMPARISON: Comparison is made with prior study 12/13/2020. FINDINGS: Mild atelectasis at the right lung base. The visualized portions of the heart are within normal limits. Mild hepatomegaly. Normal gallbladder and extrahepatic biliary system. Normal spleen. Normal pancreas. Normal bilateral adrenal glands. Normal right kidney. Normal left kidney. Normal visualized stomach. There are dilated distal small bowel loops with fecal-like material in the distal ileum. There is wall thickening of the ileal loops with the fluid within the. The colon shows a mild degree of the fecal material. There is non-visualization of the appendix. Normal abdominal aorta. Normal inferior vena cava. Normal retroperitoneum. Normal urinary bladder. IUD is seen within the uterus. There is a 2.2 cm x 2 cm cyst in the right ovary. There is a 2.3 cm cyst in the left ovary. Normal abdominal wall. Normal osseous structures. CT/Abdomen/Pelvis WITH Contrast IMPRESSION: Distention of the distal small bowel with fluid and fecal laceration of the contents within the distal small bowel. There is evidence of a thickening of the small bowel wall. This has progressed as compared to prior study. Mild hepatomegaly. Small bilateral ovarian cysts. Electronically Signed: Los Aguirre MD at 9:51 EST ,
[2022-05-20] MEDS: Morphine 4 MG/ML Syringe IV ×2 (07:44→09:37)
[2022-05-20] MEDS: Ondansetron 4 MG/2 ML Vial IV (07:44)
[2022-05-20] MEDS: 0.9% Normal Saline 1,000 ML 1000 ML IV (07:45)
[2022-05-20 07:52] LABS: Absolute Lymphocyte Count 0.94 X10^3/uL (0.83-4.51); Absolute Neutrophil Count 15.7 X10^3/uL (2.0-7.7); Basophil# 0.05 X10^3/uL; Basophil% 0.3 % (0-1); Eosinophils% 1.1 % (0-5); Hematocrit 48.9 % (37-47); Hemoglobin 17.1 g/dL (12.0-15.0); Lymphocyte # 0.94 X10^3/ul (0.83-4.51); Lymphocyte % 5.3 % (19-41); Mean Corpuscular Hgb 31.2 pg (27.0-32.0); Mean Corpuscular Volume 89.2 fL (81-99); Monocyte# 0.77 X10^3/uL; Monocyte% 4.3 % (0-10); NRBC Flagged by Analyzer 0 % (0-5); Neutrophil # 15.68 X10^3/uL (2.7-7.7); Neutrophil % 88.2 % (47-70); Platelet Count 581 K/mm3 (150-450); RBC Distribution Width SD 41.9 fl (35.1-43.9); Red Blood Count 5.48 M/mm3 (4.2-5.4); White Blood Count 17.8 K/mm3 (4.4-11.0)
[2022-05-20 08:07] LABS: Internal QC Validated? YES +Cl - CLEAR BKGD; Pregnancy, Serum, hCG Quali. NEGATIVE Negative
[2022-05-20 08:08] LABS: ALB/GLOB Ratio 0.7 RATIO (0.9-2.4); AST(SGOT) 18 U/L (15-37); Alanine Aminotransfer ALT/SGPT 52 U/L (13-56); Albumin, Serum 2.6 g/dL (3.2-5.0); Alkaline Phosphatase 139 U/L (45-117); Anion Gap 9 (5-15); BUN 18 mg/dL (7-18); BUN/Creat Ratio 30.9 RATIO (10-20); Calcium,Total 8.1 mg/dL (8.5-10.1); Chloride 105 mmol/L (98-107); Creatinine, Serum 0.58 mg/dL (0.55-1.02); EST Glomerular Filtration Rate 126 mL/min (>60); Est Glom Filt Rate - Afr Amer 152 mL/min (>60); Globulin 3.6 g/dL (2.2-4.2); Glucose 244 mg/dL (74-106); Lipase 141 U/L (73-393); Potassium 3.6 mmol/L (3.5-5.1); Protein, Total 6.2 g/dL (6.4-8.2); Sodium Level 138 mmol/L (136-145)
[2022-05-20 08:54] LABS: Bacteria 0 SEEN /hpf (None Seen); Mucous, Urine 0 SEEN /hpf (<or=2+); Red Blood Cells-Urine 0 SEEN /hpf (0-5); White Blood Cells 0 SEEN /hpf (0-5)
[2022-05-20 08:59] LABS: Color, Urine Yellow (Yellow); Glucose, Dipstick 1000 mg/dl (Normal); Ketone-Dipstick Negative (Negative); Leukocyte Esterase-Dipstick Negative /ul (Negative); Nitrite-Dipstick Negative (Negative); Occult Blood-Urine Negative /ul (Negative); Protein-Dipstick 15 mg/dl (Negative); Specific Gravity, Urine 1.015 (1.002-1.030); Urine Bilirubin Dipstick Negative (Negative); Urine Clarity Sl. Cloudy (Clear); Urine Urobilinogen Normal (Normal)
[2022-05-20 09:05] LABS: Squamous Epithelial Cells - UA 0-5 SEEN /hpf (5-10)
[2022-05-20] MEDS: Oxymetazoline 0.05% 1 SPRAY SPRAY.BTL 2 SPRAY NASAL (11:22)
[2022-05-20] MEDS: LORazepam 2 MG/ML Syringe 0.5 MG IV (11:22)
--- NOTE | 2022-05-20 12:24 | PCM.HP.STD ---
HPI - General General Date of Admission: 05/20/22 Date of Service: 05/20/22 Chief Complaint: Abdominal pain HPI Narrative NAY AMAYA, is a 36 F with past medical history signal for diabetes mellitus type 2, chronic liver disease, protein-losing enteropathy who presents with abdominal pain. Patient states it started on the morning of her presentation pain was located in the periumbilical area in addition to the pain patient did experience nausea and vomiting. Presented to the emergency department as a result. CT of the abdomen and pelvis obtained demonstrated Distention of the distal small bowel with fluid and fecal laceration of the contents within the distal small bowel.? There is evidence of a thickening of the small bowel wall. The surgeon on-call Dr. Trinh Denny was notified who recommended admission to the medicine service with consultation to her service. [facility] Medical History Abdominal pain Borderline diabetes Bowel obstruction Diabetes Diarrhea Malabsorption due to intolerance, not elsewhere classified Protein deficiency Home Medications hyoscyamine sulfate 0.125 mg tablet (Levsin) 0.125 mg PO TID PRN abdomial pin #30 tabs 01/17/21 [Rx Last Taken 05/20/22] amoxicillin 500 mg capsule 500 mg PO BID ANTIBIOTIC 05/20/22 [History Last Taken 05/19/22] ertugliflozin 5 mg tablet (Steglatro) 5 mg PO DAILY DM 05/20/22 [History Last Taken 05/19/22] furosemide 40 mg tablet 40 mg PO DAILY FLUID 05/20/22 [History Last Taken 05/19/22] ayggax-cxzubsbg-uhyouhv 24,000-76,000-120,000 unit capsule,delayed rel (Creon) 7 cap PO DAILY PANCREAS 05/20/22 [History Last Taken 05/19/22] magnesium oxide 400 mg (241.3 mg magnesium) tablet 400 mg PO DAILY SUPPLEMENT 05/20/22 [History Last Taken 05/19/22] sertraline 50 mg tablet 50 mg PO DAILY MOOD/ANXIETY 05/20/22 [History Last Taken 05/19/22] Allergy/AdvReac Type Severity Reaction Status Date / Time metformin Allergy Diarrhea Verified 05/20/22 13:56 acetaminophen [From Percocet] AdvReac Angioedema Verified 05/20/22 06:36 guaifenesin [From Mucinex] AdvReac Other Verified 05/20/22 06:36 hydrocodone AdvReac Angioedema Verified 05/20/22 06:36 oxycodone AdvReac Angioedema Verified 05/20/22 06:36 Sulfa (Sulfonamide AdvReac Angioedema Verified 05/20/22 06:36 Antibiotics) Family History Father Diabetes Father Diabetes Surgical History H/O section Social History Smoking Status: Never smoker alcohol intake: never ROS ROS Narrative GENERAL: denies fever, chills, night sweats, weight loss, anorexia HEENT: denies headache, sinus congestion, or drainage, dysphagia RESPIRATORY: denies cough, sputum production, shortness of breath, dyspnea on exertion CARDIAC: denies chest pain, palpitations, orthopnea, PND GASTROINTESTINAL: abdominal pain, nausea, vomiting, melena, GENITOURINARY: denies dysuria, urgency, frequency, heamaturia EXTREMITY: denies swelling MUSCULOSKELETAL: denies current joint pain or tenderness NEUROLOGIC: denies focal numbness, weakness, tingling HEMATOLOGIC: denies easy bruising and/or hemorrhage INTEGUMENT: denies rashes PSYCHIATRIC: denies suicidal or homicidal ideation Vital Signs Vital Signs Vital Signs: 05/20/22 06:34 05/20/22 09:43 05/20/22 11:56 Temperature 97.1 F L Temperature Source Temporal Pulse Rate 78 67 83 Respiratory Rate 18 14 Blood Pressure 127/95 H 121/75 H 127/81 H Blood Pressure Mean 105 90 96 Pulse Ox 98 97 Oxygen Delivery Method Room Air 05/20/22 12:10 Temperature 98.1 F Temperature Source Temporal Pulse Rate 90 Respiratory Rate 18 Blood Pressure 132/90 H Blood Pressure Mean 104 Pulse Ox 97 Oxygen Delivery Method Room Air Weight Weight: 45.7 kg Body Mass Index (BMI) 20.3 Results Lab / Micro Data Result Diagrams: 05/20/22 06:55 05/20/22 06:55 Labs: Laboratory Results - last 24 hr 05/20/22 06:55: WBC 17.8 H, RBC 5.48 H, Hgb 17.1 H, Hct 48.9 H, MCV 89.2, MCH 31.2, MCHC 35.0, RDW Std Deviation 41.9, RDW Coeff of Miguel 13.0, Plt Count 581 H, MPV 10.0, Immature Gran % (Auto) 0.800, Neut % (Auto) 88.2 H, Lymph % (Auto) 5.3 L, [place] % (Auto) 4.3, Eos % (Auto) 1.1, Baso % (Auto) 0.3, Absolute Neuts (auto) 15.7 H, Absolute Lymphs (auto) 0.94, Nucleated RBC % 0 05/20/22 06:55: Sodium 138, Potassium 3.6, Chloride 105, Carbon Dioxide 24.0, Anion Gap 9, BUN 18, Creatinine 0.58, Estim Creat Clear Calc 98.60, Est GFR (MDRD) Af Amer 152, Est GFR (MDRD) Non-Af 126, BUN/Creatinine Ratio 30.9 H, Glucose 244 H, Calcium 8.1 L, Total Bilirubin 0.30, AST 18, ALT 52, Alkaline Phosphatase 139 H, Total Protein 6.2 L, Albumin 2.6 L, Globulin 3.6, Albumin/Globulin Ratio 0.7 L, Lipase 141 05/20/22 06:55: Serum , Qual NEGATIVE 05/20/22 08:50: Urine Color Yellow, Urine Clarity Sl. Cloudy, Urine pH 6.0, Ur Specific [place] 1.015, Urine Protein 15 H, Urine Glucose (UA) 1000 H, Urine Ketones Negative, Urine Occult Blood Negative, Urine Nitrite Negative, Urine Bilirubin Negative, Urine Urobilinogen Normal, Ur Leukocyte Esterase Negative, Urine RBC 0 SEEN, Urine WBC 0 SEEN, Ur Squamous Epith Cells 0-5 SEEN, Urine Bacteria 0 SEEN, Urine Mucus 0 SEEN Radiology Impression Abdomen/Pelvis CT 05/20/22 07:37 IMPRESSION: Distention of the distal small bowel with fluid and fecal laceration of the contents within the distal small bowel. There is evidence of a thickening of the small bowel wall. This has progressed as compared to prior study. Mild hepatomegaly. Small bilateral ovarian cysts. Electronically Signed: Los Aguirre MD at 9:51 EST , Assessment & Plan Assessment/Plan (1) Small bowel obstruction: PLAN: Plan Patient is a 36-year-old lady presented with intractable nausea vomiting with associated abdominal pain 1. Abdominal pain secondary to small bowel obstruction ? Patient has been admitted to regular nursing floor managed conservatively with bowel rest, NG tube to suction antinausea medication as well as pain medications. Consult was placed to Dr. Trinh Castellanos from the ED 2. Protein-losing enteropathy ? Patient is followed by GI?Dr. Friend as outpatient family requested consultation with him 3. CVI D ? Per history 4. Diabetes mellitus type 2 ? Held patient oral medication steglatro, placed on Accu-Cheks before meals and at bedtime with sliding scale insulin coverage 5. Depression ? Patient is on sertraline did continue 6. DVT prophylaxis ? Low risk did encourage early ambulation Time spent in the patient's overall evaluation,decision-making process, review of diagnostic data, adjustment of management, discussion with other providers, nursing nursing and ancillary staff involved in patient's care documentation, 55 Minutes Charges/Coding Visit Charges Inpatient E&M: 82870 Init Hosp L2
[2022-05-20] MEDS: Lactated Ringers 1,000 ML 150 ML IV ×2 (14:49→22:04)
[2022-05-20 16:21] LABS: Bedside Glucose 112 mg/dL (74-106)
--- NOTE | 2022-05-20 17:39 | CON.PCM.SX_ITS ---
Assessment & Plan Assessment/Plan (1) Abdominal pain: PLAN: She states that she feels improved since admission. She states that she is recently getting over a strep infection and feels that she may have gotten dehydrated. I doubt she will require any surgical intervention. She feels that she may be better tomorrow and would like to go home tomorrow. Continue IV hydration and supportive care HPI Consult Data Date of Consult: 05/20/22 HPI Narrative Reason for Consultation: abdominal pain HPI Narrative: NAY AMAYA, is a 36 F who presents with abdominal pain. I was asked to see patient in consultation by Dr. Darius Boateng. She states that the abdominal pain began yesterday - last night. She notes crampy, bloated abdominal discomfort at present. She has had nausea but no emesis. She states that she had an episode of bowel obstruction in August, but that is because she took too much immodium. She states that she last passed flatus about an hour ago. She last had a bowel movement this morning. She is noted to have an elevated WBC of 17.8K. On CT scan, she is noted to have dilated SB with fecalization of terminal ileum with thickened mosher She states that she feels improved since admission. She states that she is recently getting over a strep infection and feels that she may have gotten dehydrated. She has been undergoing extensive gastrointestinal workup by Dr. Huggins and at [facility]. She has a long history of chronic diarrhea. She is noted to have liver abnormalities of unknown etiology. She is found by liver biopsy (02/14/2022) to have mild macrovesicular steatosis and minimal fibrosis COUNTS INCLUDE 234 BEDS AT THE [facility] Medical History Abdominal pain Borderline diabetes Bowel obstruction Diabetes Diarrhea Malabsorption due to intolerance, not elsewhere classified Protein deficiency Home Medications hyoscyamine sulfate 0.125 mg tablet (Levsin) 0.125 mg PO TID PRN abdomial pin #30 tabs 01/17/21 [Rx Last Taken 05/20/22] amoxicillin 500 mg capsule 500 mg PO BID ANTIBIOTIC 05/20/22 [History Last Taken 05/19/22] ertugliflozin 5 mg tablet (Steglatro) 5 mg PO DAILY DM 05/20/22 [History Last Taken 05/19/22] furosemide 40 mg tablet 40 mg PO DAILY FLUID 05/20/22 [History Last Taken 05/19/22] dnjbhk-vantghat-xcieqfh 24,000-76,000-120,000 unit capsule,delayed rel (Creon) 7 cap PO DAILY PANCREAS 05/20/22 [History Last Taken 05/19/22] magnesium oxide 400 mg (241.3 mg magnesium) tablet 400 mg PO DAILY SUPPLEMENT 05/20/22 [History Last Taken 05/19/22] sertraline 50 mg tablet 50 mg PO DAILY MOOD/ANXIETY 05/20/22 [History Last Taken 05/19/22] Allergy/AdvReac Type Severity Reaction Status Date / Time metformin Allergy Diarrhea Verified 05/20/22 13:56 acetaminophen [From Percocet] AdvReac Angioedema Verified 05/20/22 06:36 guaifenesin [From Mucinex] AdvReac Other Verified 05/20/22 06:36 hydrocodone AdvReac Angioedema Verified 05/20/22 06:36 oxycodone AdvReac Angioedema Verified 05/20/22 06:36 Sulfa (Sulfonamide AdvReac Angioedema Verified 05/20/22 06:36 Antibiotics) Family History Father Diabetes Father Diabetes Surgical History H/O section Social History Smoking Status: Never smoker alcohol intake: never ROS Constitutional Constitutional: Reports fatigue; Denies fever(s) Eyes Eyes: Denies blurry vision ENT HEENT: Denies neck pain Cardiovascular Cardiovascular: Denies chest pain at rest Respiratory/Chest Respiratory/Chest: Denies shortness of breath at rest Gastrointestinal Gastrointestinal: Reports systems reviewed and no addt'l complaints, except as documented Genitourinary Genitourinary: Denies urinary incontinence Musculoskeletal Musculoskeletal: Denies abnormal gait Integumentary Integumentary: Denies jaundice Endocrine Endocrinology: Denies heat intolerance Hematologic/Lymphatic Hematologic/Lymphatic: Denies easy bleeding Physical Exam Const alert and oriented x3 General Appearance: cooperative HEENT normocephalic Neck supple Resp normal respiratory effort Effort and Inspection: able to speak in complete sentences Cardio Rate: regular rate GI GI Narrative: abdomen is slight distended, patient states that she feels bloated generalized tenderness but no peritoneal signs Extremity full ROM and no calf tenderness Skin no jaundice Medical Records Data Attestation: I reviewed the patient's medical records Lab / Micro Data Attestation: I reviewed the patient's lab results. Result Diagrams: 05/20/22 06:55 05/20/22 06:55 Labs: Laboratory Results - last 24 hr 05/20/22 06:55: WBC 17.8 H, RBC 5.48 H, Hgb 17.1 H, Hct 48.9 H, MCV 89.2, MCH 31.2, MCHC 35.0, RDW Std Deviation 41.9, RDW Coeff of Miguel 13.0, Plt Count 581 H, MPV 10.0, Immature Gran % (Auto) 0.800, Neut % (Auto) 88.2 H, Lymph % (Auto) 5.3 L, [place] % (Auto) 4.3, Eos % (Auto) 1.1, Baso % (Auto) 0.3, Absolute Neuts (auto) 15.7 H, Absolute Lymphs (auto) 0.94, Nucleated RBC % 0 05/20/22 06:55: Sodium 138, Potassium 3.6, Chloride 105, Carbon Dioxide 24.0, Anion Gap 9, BUN 18, Creatinine 0.58, Estim Creat Clear Calc 98.60, Est GFR (MDRD) Af Amer 152, Est GFR (MDRD) Non-Af 126, BUN/Creatinine Ratio 30.9 H, Glucose 244 H, Calcium 8.1 L, Total Bilirubin 0.30, AST 18, ALT 52, Alkaline Phosphatase 139 H, Total Protein 6.2 L, Albumin 2.6 L, Globulin 3.6, Albumin/Globulin Ratio 0.7 L, Lipase 141 05/20/22 06:55: Serum , Qual NEGATIVE 05/20/22 08:50: Urine Color Yellow, Urine Clarity Sl. Cloudy, Urine pH 6.0, Ur Specific [place] 1.015, Urine Protein 15 H, Urine Glucose (UA) 1000 H, Urine Ketones Negative, Urine Occult Blood Negative, Urine Nitrite Negative, Urine Bilirubin Negative, Urine Urobilinogen Normal, Ur Leukocyte Esterase Negative, Urine RBC 0 SEEN, Urine WBC 0 SEEN, Ur Squamous Epith Cells 0-5 SEEN, Urine Bacteria 0 SEEN, Urine Mucus 0 SEEN 05/20/22 15:57: POC Glucose 112 H Radiology Impression Abdomen/Pelvis CT 05/20/22 07:37 IMPRESSION: Distention of the distal small bowel with fluid and fecal laceration of the contents within the distal small bowel. There is evidence of a thickening of the small bowel wall. This has progressed as compared to prior study. Mild hepatomegaly. Small bilateral ovarian cysts. Electronically Signed: Los Aguirre MD at 9:51 EST ,
--- NOTE | 2022-05-20 19:00 | CON.PCM.GI_ITS ---
HPI Consult Data Date of Consult: 05/20/22 HPI Narrative HPI Narrative: NAY AMAYA, is a 36 F who presents with worsening abdominal pain and nausea along with bloating. I was first introduced to her approximately 3 months ago with a chief complaint of worsening diarrhea. 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 She also met the criteria for protein calorie malnutrition causing ascites along with possible cirrhosis. She sought a second opinion at [facility] and underwent a liver biopsy. Liver biopsy had shown possible impending cirrhosis. She presented back in September with worsening abdominal pain to an outside hospital and was determined to have a small bowel obstruction. NG tube was placed and she was able to have the small bowel obstruction resolved without needing surgery. Today she presented with worsening abdominal pain and distention was determined to have a partial small bowel obstruction. NG tube was attempted to be placed in the ED but it was unsuccessful. At this time she is comfortable without any abdominal pain. She still feels bloated but she is not vomiting. 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 deficiency Home Medications hyoscyamine sulfate 0.125 mg tablet (Levsin) 0.125 mg PO TID PRN abdomial pin #30 tabs 01/17/21 [Rx Last Taken 05/20/22] amoxicillin 500 mg capsule 500 mg PO BID ANTIBIOTIC 05/20/22 [History Last Taken 05/19/22] ertugliflozin 5 mg tablet (Steglatro) 5 mg PO DAILY DM 05/20/22 [History Last Taken 05/19/22] furosemide 40 mg tablet 40 mg PO DAILY FLUID 05/20/22 [History Last Taken 05/19/22] wijzsb-tlnlglsl-vfgcvfi 24,000-76,000-120,000 unit capsule,delayed rel (Creon) 7 cap PO DAILY PANCREAS 05/20/22 [History Last Taken 05/19/22] magnesium oxide 400 mg (241.3 mg magnesium) tablet 400 mg PO DAILY SUPPLEMENT 05/20/22 [History Last Taken 05/19/22] sertraline 50 mg tablet 50 mg PO DAILY MOOD/ANXIETY 05/20/22 [History Last Taken 05/19/22] Allergy/AdvReac Type Severity Reaction Status Date / Time metformin Allergy Diarrhea Verified 05/20/22 13:56 acetaminophen [From Percocet] AdvReac Angioedema Verified 05/20/22 06:36 guaifenesin [From Mucinex] AdvReac Other Verified 05/20/22 06:36 hydrocodone AdvReac Angioedema Verified 05/20/22 06:36 oxycodone AdvReac Angioedema Verified 05/20/22 06:36 Sulfa (Sulfonamide AdvReac Angioedema Verified 05/20/22 06:36 Antibiotics) Family History Father Diabetes Father Diabetes Surgical History H/O section Social History Smoking Status: Never smoker alcohol intake: never ROS ROS Narrative GENERAL: denies fever, chills, night sweats, weight loss, anorexia HEENT: denies headache, sinus congestion, or drainage, dysphagia RESPIRATORY: denies cough, sputum production, shortness of breath, dyspnea on exertion CARDIAC: denies chest pain, palpitations, orthopnea, PND GASTROINTESTINAL: abdominal pain, nausea, vomiting, melena, GENITOURINARY: denies dysuria, urgency, frequency, heamaturia EXTREMITY: denies swelling MUSCULOSKELETAL: denies current joint pain or tenderness NEUROLOGIC: denies focal numbness, weakness, tingling HEMATOLOGIC: denies easy bruising and/or hemorrhage INTEGUMENT: denies rashes PSYCHIATRIC: denies suicidal or homicidal ideation Physical Exam Const alert, oriented x3, no apparent distress, healthy appearing and well nourished General Appearance: cooperative, comfortable, well kempt and well developed Orientation / Consciousness: awake and oriented to person HEENT Head and Scalp: normocephalic and atraumatic Face and Sinus: normal facial exam Mouth: oral and palatal mucosa normal Eyes General Eye: normal appearance of both eyes Neck full ROM Lymph Lymphatic: no lymphadenopathy noted Chest inspection of chest normal Resp normal respiratory effort and no use of accessory muscles Cardio regular rate and regular rhythm GI normal to inspection, nondistended, normoactive bowel sounds, soft to palpation, non-tender, non-distended and no masses Auscultation: normoactive bowel sounds Palpation: soft Percussion: normal to percussion Rectal Exam: visual inspection normal and normal sphincter tone no CVA tenderness Back/Spine no CVA tenderness and normal ROM Extremity normal to inspection Peripheral Pulses: Yes pulses 2+ throughout Skin no rashes or lesions noted General Skin Exam: no breakdown, elasticity normal and turgor normal Neuro oriented x3 Motor Exam: strength 5/5 throughout Psych mental status grossly normal Appearance: grossly normal Attitude: calm Activity / Motor Behavior: appropriate eye contact Speech: normal speech Thought Process: normal thought process Thought Content: normal thought content Attention / Concentration: attention grossly intact Memory / Cognition: memory grossly intact Insight: insight good Judgement: judgement good Lab / Micro Data Result Diagrams: 05/20/22 06:55 05/20/22 06:55 Labs: Laboratory Results - last 24 hr 05/20/22 06:55: WBC 17.8 H, RBC 5.48 H, Hgb 17.1 H, Hct 48.9 H, MCV 89.2, MCH 31.2, MCHC 35.0, RDW Std Deviation 41.9, RDW Coeff of Miguel 13.0, Plt Count 581 H, MPV 10.0, Immature Gran % (Auto) 0.800, Neut % (Auto) 88.2 H, Lymph % (Auto) 5.3 L, [place] % (Auto) 4.3, Eos % (Auto) 1.1, Baso % (Auto) 0.3, Absolute Neuts (auto) 15.7 H, Absolute Lymphs (auto) 0.94, Nucleated RBC % 0 05/20/22 06:55: Sodium 138, Potassium 3.6, Chloride 105, Carbon Dioxide 24.0, Anion Gap 9, BUN 18, Creatinine 0.58, Estim Creat Clear Calc 98.60, Est GFR (MDRD) Af Amer 152, Est GFR (MDRD) Non-Af 126, BUN/Creatinine Ratio 30.9 H, Glucose 244 H, Calcium 8.1 L, Total Bilirubin 0.30, AST 18, ALT 52, Alkaline Phosphatase 139 H, Total Protein 6.2 L, Albumin 2.6 L, Globulin 3.6, Albumin/Globulin Ratio 0.7 L, Lipase 141 05/20/22 06:55: Serum , Qual NEGATIVE 05/20/22 08:50: Urine Color Yellow, Urine Clarity Sl. Cloudy, Urine pH 6.0, Ur Specific [place] 1.015, Urine Protein 15 H, Urine Glucose (UA) 1000 H, Urine Ketones Negative, Urine Occult Blood Negative, Urine Nitrite Negative, Urine Bilirubin Negative, Urine Urobilinogen Normal, Ur Leukocyte Esterase Negative, Urine RBC 0 SEEN, Urine WBC 0 SEEN, Ur Squamous Epith Cells 0-5 SEEN, Urine Bacteria 0 SEEN, Urine Mucus 0 SEEN 05/20/22 15:57: POC Glucose 112 H Radiology Impression Abdomen/Pelvis CT 05/20/22 07:37 IMPRESSION: Distention of the distal small bowel with fluid and fecal laceration of the contents within the distal small bowel. There is evidence of a thickening of the small bowel wall. This has progressed as compared to prior study. Mild hepatomegaly. Small bilateral ovarian cysts. Electronically Signed: Los Aguirre MD at 9:51 EST , Assessment & Plan Assessment/Plan (1) Liver disease: PLAN: Severe liver disease with impending cirrhosis possibly secondary to underlying protein calorie malnutrition with a very high alpha-1 antitrypsin in the stool. I will check an INR, LDH, lactate. At this time she is not showing any signs of worsening liver disease. (2) Ascites: PLAN: Ascites is believed to be secondary to protein calorie malnutrition. I would recommend IV albumin treatment. (3) CVID (common variable immunodeficiency): PLAN: She needs outpatient follow-up with instructor modeling for possible IVIG replacement. (4) Small bowel obstruction: PLAN: It is a possibility that she has an inflammatory strictures I would recommend Solu-Medrol treatment. Appreciate surgical evaluation. Charges/Coding Visit Charges Inpatient E&M: 28878 Init Hosp L3
[2022-05-20 20:18] LABS: CRP < 2.90 mg/L (0.0-3.0); LDH 204 U/L (84-246)
[2022-05-20 20:42] LABS: Erythrocyte Sedimentation Rate 13 mm/hr (0-30)
[2022-05-20] MEDS: Ketorolac 15 MG/ML Vial IV (20:48)
[2022-05-20 20:52] LABS: Partial Thromboplast Time 27.9 Seconds (24.1-36.2); Prothrombin Time (Protime)PT. 13.2 SECONDS (11.7-14.9)
[2022-05-20 21:20] LABS: Bedside Glucose 118 mg/dL (74-106)
[2022-05-21 04:05] VITALS: BP 119/79; PULSE 87; RESP 18; TEMP 36.4; O2SAT 97
[2022-05-21] MEDS: Ketorolac 15 MG/ML Vial IV (05:06)
[2022-05-21] MEDS: Lactated Ringers 1,000 ML 150 ML IV (05:08)
--- NOTE | 2022-05-21 05:26 | RAD_ITS ---
INDICATION: sbo EXAMINATION/TECHNIQUE: X-RAY - XR Abdomen W/ Decub and/or Erect Views COMPARISON: FINDINGS: Moderately dilated small bowel. Stool and air in the colon. Moderate stool in the colon, likely sigmoid and right colon. No free air in the abdomen. Intrauterine device noted in the pelvis. The lung bases are clear. RAD/Abd Inc Decub and/or Erect IMPRESSION: Findings consistent with distal small bowel obstruction. Electronically Signed: Charlene Giordano MD at 8:00 EST ,
[2022-05-21 06:19] LABS: Absolute Lymphocyte Count 0.44 X10^3/uL (0.83-4.51); Absolute Neutrophil Count 8.7 X10^3/uL (2.0-7.7); Basophil# 0.02 X10^3/uL; Basophil% 0.2 % (0-1); Hematocrit 43.4 % (37-47); Hemoglobin 14.2 g/dL (12.0-15.0); Lymphocyte # 0.44 X10^3/ul (0.83-4.51); Lymphocyte % 4.7 % (19-41); Mean Corp Hgb Conc 32.7 g/dL (32-36); Mean Corpuscular Hgb 30.3 pg (27.0-32.0); Mean Corpuscular Volume 92.7 fL (81-99); Mean Platelet Vol. 9.8 fl (6.2-12.0); Monocyte# 0.07 X10^3/uL; Monocyte% 0.8 % (0-10); NRBC Flagged by Analyzer 0 % (0-5); Neutrophil # 8.71 X10^3/uL (2.7-7.7); Neutrophil % 93.7 % (47-70); POSITIVE DIFFERENTIAL YES; Platelet Count 381 K/mm3 (150-450); RBC Distribution Width CV 13.3 % (11.6-14.6); RBC Distribution Width SD 44.4 fl (35.1-43.9); Red Blood Count 4.68 M/mm3 (4.2-5.4); White Blood Count 9.3 K/mm3 (4.4-11.0)
[2022-05-21 06:33] LABS: Differential Indicated SCAN CRITERIA MET
[2022-05-21] MEDS: Insulin Lispro 100 UNIT/ML INSULN.PEN SC ×2 (06:39→11:34)
[2022-05-21 06:44] LABS: Anion Gap 10 (5-15); BUN 18 mg/dL (7-18); Calcium,Total 7.4 mg/dL (8.5-10.1); Chloride 111 mmol/L (98-107); Creatinine, Serum 0.39 mg/dL (0.55-1.02); EST Glomerular Filtration Rate 199 mL/min (>60); Est Glom Filt Rate - Afr Amer 241 mL/min (>60); Estimated Creatinine Clearance 150.49 ml/min; Glucose 204 mg/dL (74-106); Magnesium 2.2 mg/dL (1.6-2.6); Potassium 3.9 mmol/L (3.5-5.1); Sodium Level 142 mmol/L (136-145)
[2022-05-21 07:01] LABS: Bedside Glucose 171 mg/dL (74-106)
[2022-05-21 07:09] LABS: Differential Comment SCANNED
--- NOTE | 2022-05-21 07:40 | PN.HOSP_ITS ---
Subjective Subjective Follow-up small bowel obstruction Patient seen admit to significant improvement in his symptoms. Imaging studies related to distal small bowel obstruction. Case was discussed with Dr. Trinh Denny with general surgery who felt patient was okay to be discharged. An order has been given for patient to receive enema by Dr. Huggins with GI prior to patient being discharged Objective Data Objective Data Vital Signs: Vital Signs Temp Pulse Resp BP Pulse Ox O2 Del Method 97.6 F L 87 18 119/79 97 Room Air 05/21/22 04:05 05/21/22 04:05 05/21/22 04:05 05/21/22 04:05 05/21/22 04:05 05/21/22 04:05 Oxygen Delivery Method Room Air Weight: 46.901 kg Body Mass Index (BMI) 20.9 Intake & Output: Intake and Output for Last 24 Hours 05/19/22 05/20/22 05/21/22 23:59 23:59 23:59 Intake Total 2220 / 2220 1000 / 1000 Balance 2220 / 2220 1000 / 1000 Lab / Micro Data Result Diagrams: 05/21/22 05:50 05/21/22 05:50 Labs: Laboratory Results - last 24 hr 05/20/22 06:55: WBC 17.8 H, RBC 5.48 H, Hgb 17.1 H, Hct 48.9 H, MCV 89.2, MCH 31.2, MCHC 35.0, RDW Std Deviation 41.9, RDW Coeff of Miguel 13.0, Plt Count 581 H, MPV 10.0, Immature Gran % (Auto) 0.800, Neut % (Auto) 88.2 H, Lymph % (Auto) 5.3 L, [place] % (Auto) 4.3, Eos % (Auto) 1.1, Baso % (Auto) 0.3, Absolute Neuts (auto) 15.7 H, Absolute Lymphs (auto) 0.94, Nucleated RBC % 0 05/20/22 06:55: Sodium 138, Potassium 3.6, Chloride 105, Carbon Dioxide 24.0, Anion Gap 9, BUN 18, Creatinine 0.58, Estim Creat Clear Calc 98.60, Est GFR (MDRD) Af Amer 152, Est GFR (MDRD) Non-Af 126, BUN/Creatinine Ratio 30.9 H, Glucose 244 H, Calcium 8.1 L, Total Bilirubin 0.30, AST 18, ALT 52, Alkaline Ph osphatase 139 H, Total Protein 6.2 L, Albumin 2.6 L, Globulin 3.6, Albumin/Globulin Ratio 0.7 L, Lipase 141 05/20/22 06:55: Serum , Qual NEGATIVE 05/20/22 06:55: ESR 13 05/20/22 06:55: Lactate Dehydrogenase 204, C-React Prot Ext Range < 2.90 05/20/22 08:50: Urine Color Yellow, Urine Clarity Sl. Cloudy, Urine pH 6.0, Ur Specific [place] 1.015, Urine Protein 15 H, Urine Glucose (UA) 1000 H, Urine Ketones Negative, Urine Occult Blood Negative, Urine Nitrite Negative, Urine Bilirubin Negative, Urine Urobilinogen Normal, Ur Leukocyte Esterase Negative, Urine RBC 0 SEEN, Urine WBC 0 SEEN, Ur Squamous Epith Cells 0-5 SEEN, Urine Bacteria 0 SEEN, Urine Mucus 0 SEEN 05/20/22 15:57: POC Glucose 112 H 05/20/22 20:15: PT 13.2, INR 1.0, APTT 27.9 05/20/22 20:50: POC Glucose 118 H 05/21/22 05:50: Sodium 142, Potassium 3.9, Chloride 111 H, Carbon Dioxide 21.0, Anion Gap 10, BUN 18, Creatinine 0.39 L, Estim Creat Clear Calc 150.49, Est GFR (MDRD) Af Amer 241, Est GFR (MDRD) Non-Af 199, BUN/Creatinine Ratio 46.0 H, Glucose 204 H, Calcium 7.4 L, Magnesium 2.2 05/21/22 05:50: WBC 9.3, RBC 4.68, Hgb 14.2, Hct 43.4, MCV 92.7, MCH 30.3, MCHC 32.7 D, RDW Std Deviation 44.4 H, RDW Coeff of Miguel 13.3, Plt Count 381, MPV 9.8, Immature Gran % (Auto) 0.600, Neut % (Auto) 93.7 H, Lymph % (Auto) 4.7 L, [place] % (Auto) 0.8, Eos % (Auto) 0.0, Baso % (Auto) 0.2, Absolute Neuts (auto) 8.7 H, Absolute Lymphs (auto) 0.44 L, Nucleated RBC % 0, Differential Comment SCANNED 05/21/22 05:50: Phosphorus 3.0 05/21/22 06:38: POC Glucose 171 H Radiography Diagnostic Testing: Radiology Impression Abdomen/Pelvis CT 05/20/22 07:37 IMPRESSION: Distention of the distal small bowel with fluid and fecal laceration of the contents within the distal small bowel. There is evidence of a thickening of the small bowel wall. This has progressed as compared to prior study. Mild hepatomegaly. Small bilateral ovarian cysts. Electronically Signed: Los Aguirre MD at 9:51 EST , Physical Exam Narrative GENERAL: cooperative HEENT: Atraumatic; normocephalic EYES; Anicteric, Normal Conjunctiva NECK; supple, normal thyroid, RESPIRATORY: Diminished to auscultation CARDIOVASCULAR: Regular S1 S2, GI: soft, normoactive bowel sounds, : No Renal angle tenderness; EXTREMITIES: No edema, no clubbing, MUSCULOSKELETAL: no muscle wasting NEURO: Awake; no lateralizing signs. SKIN: No Rash PSYCH; Flat affect Assessment & Plan Assessment/Plan (1) Small bowel obstruction: PLAN: Plan Patient is a 36-year-old lady presented with intractable nausea vomiting with associated abdominal pain 1. Abdominal pain secondary to small bowel obstruction ? Patient has been admitted to regular nursing floor managed conservatively with bowel rest, NG tube to suction antinausea medication as well as pain medications. Consult was placed to Dr. [facility]h [facility] to [facility] improvement in his symptoms. Imaging studies related to distal small bowel obstruction. Case was discussed with Dr. Trinh Denny with general surgery who felt patient was okay to be discharged. An order has been given for patient to receive enema by Dr. 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 Huggins as outpatient family requested consultation with him 3. CVI D ? Per history. Patient to follow-up with an production quality analyst as outpatient for initiation of IVIG 4. Diabetes mellitus type 2 ? Held patient oral medication steglatro, placed on Accu-Cheks before meals and at bedtime with sliding scale insulin coverage 5. Depression ? Patient is on sertraline did continue 6. DVT prophylaxis ? Low risk did encourage early ambulation Time spent in the patient's overall evaluation,decision-making process, review of diagnostic data, adjustment of management, discussion with other providers, nursing nursing and ancillary staff involved in patient's care documentation, 35 Minutes Charges/Coding Visit Charges Inpatient E&M: 46975 Subs Hosp L2
[2022-05-21 09:13] VITALS: BP 116/74; PULSE 91; RESP 16; TEMP 36.9; O2SAT 95
--- NOTE | 2022-05-21 09:31 | PN.SURG_ITS ---
Subjective Subjective patient states that she is passing flatus has much less abdominal pain than previous, wants to go home Objective Data Objective Data Vital Signs: Vital Signs Temp Pulse Resp BP Pulse Ox O2 Del Method 98.4 F 91 16 116/74 95 Room Air 05/21/22 09:13 05/21/22 09:13 05/21/22 09:13 05/21/22 09:13 05/21/22 09:05/21/22 09:22 Oxygen Delivery Method Room Air Weight: 46.901 kg Body Mass Index (BMI) 20.9 Intake & Output: Intake and Output for Last 24 Hours 05/19/22 05/20/22 05/21/22 23:59 23:59 23:59 Intake Total 2220 / 2220 1000 / 1000 Balance 2220 / 2220 1000 / 1000 Lab / Micro Data Attestation: I reviewed the patient's lab results. Result Diagrams: 05/21/22 05:50 05/21/22 05:50 Labs: Laboratory Results - last 24 hr 05/20/22 06:55: ESR 13 05/20/22 06:55: Lactate Dehydrogenase 204, C-React Prot Ext Range < 2.90 05/20/22 15:57: POC Glucose 112 H 05/20/22 20:15: PT 13.2, INR 1.0, APTT 27.9 05/20/22 20:50: POC Glucose 118 H 05/21/22 05:50: Sodium 142, Potassium 3.9, Chloride 111 H, Carbon Dioxide 21.0, Anion Gap 10, BUN 18, Creatinine 0.39 L, Estim Creat Clear Calc 150.49, Est GFR (MDRD) Af Amer 241, Est GFR (MDRD) Non-Af 199, BUN/Creatinine Ratio 46.0 H, Glucose 204 H, Calcium 7.4 L, Magnesium 2.2 05/21/22 05:50: WBC 9.3, RBC 4.68, Hgb 14.2, Hct 43.4, MCV 92.7, MCH 30.3, MCHC 32.7 D, RDW Std Deviation 44.4 H, RDW Coeff of Miguel 13.3, Plt Count 381, MPV 9.8, Immature Gran % (Auto) 0.600, Neut % (Auto) 93.7 H, Lymph % (Auto) 4.7 L, [place] % (Auto) 0.8, Eos % (Auto) 0.0, Baso % (Auto) 0.2, Absolute Neuts (auto) 8.7 H, Absolute Lymphs (auto) 0.44 L, Nucleated RBC % 0, Differential Comment SCANNED 05/21/22 05:50: Phosphorus 3.0 05/21/22 06:38: POC Glucose 171 H Radiography Diagnostic Testing: Radiology Impression Abdomen/Pelvis CT 05/20/22 07:37 IMPRESSION: Distention of the distal small bowel with fluid and fecal laceration of the contents within the distal small bowel. There is evidence of a thickening of the small bowel wall. This has progressed as compared to prior study. Mild hepatomegaly. Small bilateral ovarian cysts. Electronically Signed: Los Aguirre MD at 9:51 EST , Abdomen X-Ray 05/21/22 05:26 IMPRESSION: Findings consistent with distal small bowel obstruction. Electronically Signed: Charlene Giordano MD at 8:00 EST , Physical Exam Const alert and oriented x3 General Appearance: cooperative HEENT normocephalic Neck supple Resp normal respiratory effort Effort and Inspection: able to speak in complete sentences GI GI Narrative: abdomen is soft - no peritoneal signs Assessment & Plan Assessment/Plan (1) Abnormal CT scan: PLAN: see below PLAN: Plan patient clinically does not have SBO She does have an abnormal gastrointestinal problem that is still pending workup DrNolvia Friend will follow up with patient, he saw patient last night to reassure her plan d/c to home
--- NOTE | 2022-05-21 09:36 | DCINST_ITS ---
Discharge Instructions Follow Up Care Test Results: Test results from this visit will be discussed in further detail at your follow- up appointment, if applicable. Discharge Plan Admission Admit Date/Time: 05/20/22 11:59 Attending Provider: Darius Boateng Primary Care Provider: Henry Wise Consulting Providers: Trinh Denny Additional Instructions / Restrictions: stay on liquid diet for the next couple of days and advance as tolerated Follow up with gastroenterology Discharge Orders/Prescriptions Prescriptions: New ondansetron 4 mg tablet,disintegrating 4 mg PO Q8H Qty: 7 0RF etodolac 400 mg tablet 400 mg PO TID Qty: 10 0RF No Action hyoscyamine sulfate [Levsin] 0.125 mg tablet 0.125 mg PO TID PRN (Reason: abdomial pin) Qty: 30 0RF amoxicillin 500 mg capsule 500 mg PO BID Label Comments: TAKE 1 CAPSULE BY MOUTH TWICE DAILY furosemide 40 mg tablet 40 mg PO DAILY magnesium oxide 400 mg (241.3 mg magnesium) tablet 400 mg PO DAILY Label Comments: TAKE 1 TABLET BY MOUTH ONCE DAILY Creon 24,000-76,000 -120,000 unit capsule,delayed release(DR/EC) 7 cap PO DAILY Steglatro 5 mg tablet 5 mg PO DAILY sertraline 50 mg tablet 50 mg PO DAILY Referrals / Follow Up: Henry Wise MD [Primary Care Provider] - Disposition Discharge Orders: Discharge Patient (Routine); Ordered 05/21/22 Ordered By: Dr. Trinh Denny
--- NOTE | 2022-05-21 10:15 | CASEMGMT ---
JULIOCESAR SUGGS DC Planning: Face to Face with pt for initial DC planning/care coordination. JULIOCESAR SUGGS introduced self and role at [facility]. Pt voiced understanding. Pt alert, oriented x4, and agreeable to discussion. Pt's spouse and daughter at bedside. Pt states she is independent at home with ADLs and denies any concerns with returning home. States her spouse and teenage daughters are able to assist as needed. No discharge needs identified at this time. Leeann Michael RN CM
--- NOTE | 2022-05-21 10:56 | PCM.PROGNOTE ---
Subjective Subjective Patient seen and examined with her at the bedside. She does feel a lot less bloated. She is passing gas. She has not had a bowel movement yet. She feels like she is responding very well to steroid therapy. Objective Data Objective Data Vital Signs: Vital Signs Temp Pulse Resp BP Pulse Ox O2 Del Method 98.4 F 91 16 116/74 95 Room Air 05/21/22 09:13 05/21/22 09:13 05/21/22 09:13 05/21/22 09:13 05/21/22 09:13 05/21/22 09:22 Oxygen Delivery Method Room Air Weight: 103 lb 6.4 oz Body Mass Index (BMI) 20.9 Intake & Output: Intake and Output for Last 24 Hours 05/19/22 05/20/22 05/21/22 23:59 23:59 23:59 Intake Total 2220 / 2220 1110 / 1110 Balance 2220 / 2220 1110 / 1110 Lab / Micro Data Result Diagrams: 05/21/22 05:50 05/21/22 05:50 Labs: Laboratory Results - last 24 hr 05/20/22 06:55: ESR 13 05/20/22 06:55: Lactate Dehydrogenase 204, C-React Prot Ext Range < 2.90 05/20/22 15:57: POC Glucose 112 H 05/20/22 20:15: PT 13.2, INR 1.0, APTT 27.9 05/20/22 20:50: POC Glucose 118 H 05/21/22 05:50: Sodium 142, Potassium 3.9, Chloride 111 H, Carbon Dioxide 21.0, Anion Gap 10, BUN 18, Creatinine 0.39 L, Estim Creat Clear Calc 150.49, Est GFR (MDRD) Af Amer 241, Est GFR (MDRD) Non-Af 199, BUN/Creatinine Ratio 46.0 H, Glucose 204 H, Calcium 7.4 L, Magnesium 2.2 05/21/22 05:50: WBC 9.3, RBC 4.68, Hgb 14.2, Hct 43.4, MCV 92.7, MCH 30.3, MCHC 32.7 D, RDW Std Deviation 44.4 H, RDW Coeff of Miguel 13.3, Plt Count 381, MPV 9.8, Immature Gran % (Auto) 0.600, Neut % (Auto) 93.7 H, Lymph % (Auto) 4.7 L, [place] % (Auto) 0.8, Eos % (Auto) 0.0, Baso % (Auto) 0.2, Absolute Neuts (auto) 8.7 H, Absolute Lymphs (auto) 0.44 L, Nucleated RBC % 0, Differential Comment SCANNED 05/21/22 05:50: Phosphorus 3.0 05/21/22 06:38: POC Glucose 171 H Radiography Diagnostic Testing: Radiology Impression Abdomen X-Ray 05/21/22 05:26 IMPRESSION: Findings consistent with distal small bowel obstruction. Electronically Signed: Charlene Giordano MD at 8:00 EST , Physical Exam Const alert and oriented x3 General Appearance: cooperative HEENT normocephalic Neck supple Resp normal respiratory effort Effort and Inspection: able to speak in complete sentences GI GI Narrative: abdomen is soft - no peritoneal signs Assessment & Plan Assessment/Plan (1) Liver disease: PLAN: Severe liver disease with impending cirrhosis possibly secondary to underlying protein calorie malnutrition with a very high alpha-1 antitrypsin in the stool. I will check an INR, LDH, lactate. At this time she is not showing any signs of worsening liver disease. (2) Ascites: PLAN: Ascites is believed to be secondary to protein calorie malnutrition. I we will give her albumin prior to her discharge. (3) CVID (common variable immunodeficiency): PLAN: She needs outpatient follow-up with machine stuffer automatic for possible IVIG replacement. (4) Small bowel obstruction: PLAN: It is a possibility that she has an inflammatory strictures I would recommend to continue steroid therapy treatment. Appreciate surgical evaluation. Charges/Coding Visit Charges Inpatient E&M: 96990 Subs Hosp L3
--- NOTE | 2022-05-21 11:32 | DS.PCM_ITS ---
Providers Date of Admission: 05/20/22 Date of Discharge: 05/21/22 Primary Care Physician: Dr. Henry Wise MD Consultations 05/20/22 13:50 Consult: Gastroenterology Routine Consulting Provider: [facility] Reason for Consult: Protein-losing enteropathy EMERGENT Consult: No Notified: Yes Date Notified: 05/20/22 Time Notified: 12:33 Method of Notification: Text Consult: General Surgery Routine Consulting Provider: Trinh Denny Reason for Consult: SBO EMERGENT Consult: No Notified: Yes Date Notified: 05/20/22 Time Notified: 12:31 Method of Notification: ED Physician Initiated Reason For Visit: SMALL BOWEL OBSTRUCTION Diagnosis Discharge Diagnosis (1) Small bowel obstruction: Status: Acute Code(s): K56.609 - Unspecified intestinal obstruction, unspecified as to partial versus complete obstruction Plan Patient is a 36-year-old lady presented with intractable nausea vomiting with associated abdominal pain 1. Abdominal pain secondary to small bowel obstruction ? Patient has been admitted to regular nursing floor managed conservatively with bowel rest, NG tube to suction antinausea medication as well as pain m edications. Consult was placed to Dr. Trinh Castellanos from the ED -05/21/2022 atient seen admit to significant improvement in his symptoms. Imaging studies related to distal small bowel obstruction. Case was discussed with Dr. Trinh Denny with general surgery who felt patient was okay to be discharged. An order has been given for patient to receive enema by Dr. 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 Huggins as outpatient family requested consultation with him 3. CVI D ? Per history. Patient to follow-up with an director advanced as outpatient for initiation of IVIG 4. Diabetes mellitus type 2 ? Held patient oral medication steglatro, placed on Accu-Cheks before meals and at bedtime with sliding scale insulin coverage 5. Depression ? Patient is on sertraline did continue 6. DVT prophylaxis ? Low risk did encourage early ambulation Time spent in the patient's overall evaluation,decision-making process, review of diagnostic data, adjustment of management, discussion with other providers, nursing nursing and ancillary staff involved in patient's care documentation, 35 Minutes Medications at Discharge Home Medications hyoscyamine sulfate 0.125 mg tablet (Levsin) 0.125 mg PO TID PRN abdomial pin #30 tabs 01/17/21 ertugliflozin 5 mg tablet (Steglatro) 5 mg PO DAILY DM 05/20/22 furosemide 40 mg tablet 40 mg PO DAILY FLUID 05/20/22 [id number]-soczyhid-fbnzsyw 24,000-76,000-120,000 unit capsule,delayed rel (Creon) 7 cap PO DAILY PANCREAS 05/20/22 magnesium oxide 400 mg (241.3 mg magnesium) tablet 400 mg PO DAILY SUPPLEMENT 05/20/22 sertraline 50 mg tablet 50 mg PO DAILY MOOD/ANXIETY 05/20/22 etodolac 400 mg tablet 400 mg PO TID #10 tabs 05/21/22 ondansetron 4 mg disintegrating tablet 4 mg PO Q8H #7 tabs 05/21/22 prednisone 20 mg tablet 20 mg PO BID #60 tabs 05/21/22 Hospital Course Summary of Care Provided Minutes Spent on Discharge: 35 Physical Exam Narrative GENERAL: cooperative HEENT: Atraumatic; normocephalic EYES; Anicteric, Normal Conjunctiva NECK; supple, normal thyroid, RESPIRATORY: Diminished to auscultation CARDIOVASCULAR: Regular S1 S2, GI: soft, normoactive bowel sounds, : No Renal angle tenderness; EXTREMITIES: No edema, no clubbing, MUSCULOSKELETAL: no muscle wasting NEURO: Awake; no lateralizing signs. SKIN: No Rash PSYCH; Flat affect Weight / BMI Weight Weight: 46.901 kg Body Mass Index (BMI) 20.9 ABG / Lab / Microbiology Data Result Diagrams: 05/21/22 05:50 05/21/22 05:50 Laboratory: Laboratory Results - last 24 hr 05/20/22 06:55: ESR 13 05/20/22 06:55: Lactate Dehydrogenase 204, C-React Prot Ext Range < 2.90 05/20/22 15:57: POC Glucose 112 H 05/20/22 20:15: PT 13.2, INR 1.0, APTT 27.9 05/20/22 20:50: POC Glucose 118 H 05/21/22 05:50: Sodium 142, Potassium 3.9, Chloride 111 H, Carbon Dioxide 21.0, Anion Gap 10, BUN 18, Creatinine 0.39 L, Estim Creat Clear Calc 150.49, Est GFR (MDRD) Af Amer 241, Est GFR (MDRD) Non-Af 199, BUN/Creatinine Ratio 46.0 H, Glucose 204 H, Calcium 7.4 L, Magnesium 2.2 05/21/22 05:50: WBC 9.3, RBC 4.68, Hgb 14.2, Hct 43.4, MCV 92.7, MCH 30.3, MCHC 32.7 D, RDW Std Deviation 44.4 H, RDW Coeff of Miguel 13.3, Plt Count 381, MPV 9.8, Immature Gran % (Auto) 0.600, Neut % (Auto) 93.7 H, Lymph % (Auto) 4.7 L, [place] % (Auto) 0.8, Eos % (Auto) 0.0, Baso % (Auto) 0.2, Absolute Neuts (auto) 8.7 H, Absolute Lymphs (auto) 0.44 L, Nucleated RBC % 0, Differential Comment SCANNED 05/21/22 05:50: Phosphorus 3.0 05/21/22 06:38: POC Glucose 171 H Radiography Diagnostic Testing: Radiology Impression Abdomen X-Ray 05/21/22 05:26 IMPRESSION: Findings consistent with distal small bowel obstruction. Electronically Signed: Charlene Giordano MD at 8:00 EST Reading Location ID and State: [facility] / [place] Tel , Service support , D/C Instructions Discharge Diet: 1800 Calorie Control Diet Discharge Activity: Return to Normal Activity Call your doctor if you observe: Fever of 101 or Higher, Shortness of breath, Fainting spells and Chest pain Meaningful Use Info Meaningful Use Diagnoses (Choose all that apply): None applicable Discharge Plan Admission Admit Date/Time: 05/20/22 11:59 Attending Provider: Darius Boateng Primary Care Provider: Henry Wise Consulting Providers: Trinh Denny Instructions Additional Instructions / Restrictions: stay on liquid diet for the next couple of days and advance as tolerated Follow up with gastroenterology Discharge Orders/Prescriptions Prescriptions: New ondansetron 4 mg tablet,disintegrating 4 mg PO Q8H Qty: 7 0RF etodolac 400 mg tablet 400 mg PO TID Qty: 10 0RF Continued hyoscyamine sulfate [Levsin] 0.125 mg tablet 0.125 mg PO TID PRN (Reason: abdomial pin) Qty: 30 0RF furosemide 40 mg tablet 40 mg PO DAILY magnesium oxide 400 mg (241.3 mg magnesium) tablet 400 mg PO DAILY Label Comments: TAKE 1 TABLET BY MOUTH ONCE DAILY Creon 24,000-76,000 -120,000 unit capsule,delayed release(DR/EC) 7 cap PO DAILY Steglatro 5 mg tablet 5 mg PO DAILY sertraline 50 mg tablet 50 mg PO DAILY prednisone 20 mg tablet 20 mg PO BID Qty: 60 1RF Discontinued amoxicillin 500 mg capsule 500 mg PO BID Label Comments: TAKE 1 CAPSULE BY MOUTH TWICE DAILY Referrals / Follow Up: Henry Wise MD [Primary Care Provider] - In 1 Week Friend,DO Tiburcio [Med Staff - Active Staff] - Within 1 Month Disposition Discharge Orders: Discharge Patient (Routine); Ordered 05/21/22 Ordered By: Dr. Trinh Denny Charges/Coding Visit Charges Inpatient E&M: 90731 Disch Hosp >30min
[2022-05-21 12:00] LABS: Bedside Glucose 343 mg/dL (74-106)
[2022-05-21] MEDS: Albumin Human 25% (100 mL) 25 GM/100 ML BAG IV (12:12)
--- NOTE | 2022-05-21 13:40 | NURSING ---
enema d/c as pt had bm- and dr albright aware- he d/c it
[2022-05-21 14:32] VITALS: BP 141/86; PULSE 90; RESP 16; TEMP 36.9; O2SAT 99
== END 2022-05-21 14:54 | disposition home or self-care (01) | DRG 394 ==
LOC: ED 07:44 → MS2 13:22
PROVIDERS: Internal Medicine Gastroenterology; Admitting Provider Internal Medicine; Emergency Provider Emergency Medicine; PCP Family Medicine; Visit Provider Internal Medicine
DX: K63.89 Other specified diseases of intestine (principal); D83.9 Common variable immunodeficiency, unspecified; E11.9 Type 2 diabetes mellitus without complications; R18.8 Other ascites; K90.49 Malabsorption due to intolerance, not elsewhere classified; K76.9 Liver disease, unspecified; F32.A Depression, unspecified; Z79.84 Long term (current) use of oral hypoglycemic drugs; Z79.899 Other long term (current) drug therapy; Z79.891 Long term (current) use of opiate analgesic
CPT/HCPCS: 36415; 74019; 74177; 80048; 80053; 81001; 82962; 83615; 83690; 83735; 84100; 84703; 85025; 85610; 85652; 85730; 86140; 96361; 96365; 96366; 96367; 96375; 96376; 99221; 99283; J7030; J7120; P9047; Q9967; A4216; G0378; J2405

== ENCOUNTER → 2022-05-25 | Outpatient (CLI) | payer OTHER, SELFPAY ==
[2022-05-29 10:07] LABS: Immunoglobulin A 54 mg/dL (87-352); Immunoglobulin E 13 IU/mL (6-495); Immunoglobulin G 406 mg/dL (586-1602)
[2022-05-29 13:17] LABS: Immunoglobulin M 44 mg/dL (26-217)
== END | disposition home or self-care (01) ==
LOC: LAB 14:57
PROVIDERS: PCP Family Medicine; Visit Provider Internal Medicine Gastroenterology
DX: E46 Unspecified protein-calorie malnutrition (principal)
CPT/HCPCS: 36415; 82784; 82785

== ENCOUNTER 2022-06-29 05:10 | Emergency (ER) | payer OTHER, SELFPAY ==
[2022-06-29 05:11] VITALS: BP 100/57; PULSE 96; RESP 18; TEMP 35.5; O2SAT 96; BMI 20.5
--- NOTE | 2022-06-29 05:38 | ED.VIS.GI ---
HPI HPI - GI History of Present Illness Chief Complaint: Nausea/Vomiting Informant: patient and spouse/S.O. Abdominal Pain/Flank Pain Onset: Yesterday Context: Gradual Onset Timing: Continuous Quality: Cramping Location: - (Periumbilical/diffuse) Current Severity: Moderate Maximum Severity: Moderate Worsened by: Nothing Relieved by: Nothing Nausea/Vomiting/Emesis GI Symptom: Positive for Nausea and Vomiting Onset: Yesterday Quality: Positive for Nonbilious; Negative for Blood streaks, Coffee ground or Hematemesis Severity: Severe Diarrhea/Melena/Hematochezia GI Symptom: Positive for Diarrhea; Negative for Melena or Hematochezia Stool Quality: Positive for Watery Severity: Severe Associated Symptoms Associated Symptoms: Negative for Dysuria, Frequency or Hematuria Narrative Narrative: Patient has been ill with vomiting and diarrhea for the last day, she states one of her children recently had this and she suspects maybe she caught it. It lasted a day or 2 for the child. Patient states with her chronic medical conditions which are still in work-up, she tends to get dehydrated quickly and was concerned that even Zofran was not helping at home. [facility] Medical History (Updated 06/29/22 @ 06:[address] 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 deficiency Home Medications hyoscyamine sulfate 0.125 mg tablet (Levsin) 0.125 mg PO TID PRN abdomial pin #30 tabs 01/17/21 [Rx Last Taken 05/20/22] ertugliflozin 5 mg tablet (Steglatro) 5 mg PO DAILY DM 05/20/22 [History Last Taken 05/19/22] furosemide 40 mg tablet 40 mg PO DAILY FLUID 05/20/22 [History Last Taken 05/19/22] liphnv-yulmlusq-suafzhf 24,000-76,000-120,000 unit capsule,delayed rel (Creon) 7 cap PO DAILY PANCREAS 05/20/22 [History Last Taken 05/19/22] magnesium oxide 400 mg (241.3 mg magnesium) tablet 400 mg PO DAILY SUPPLEMENT 05/20/22 [History Last Taken 05/19/22] sertraline 50 mg tablet 50 mg PO DAILY MOOD/ANXIETY 05/20/22 [History Last Taken 05/19/22] etodolac 400 mg tablet 400 mg PO TID #10 tabs 05/21/22 [Rx Last Taken Unknown] ondansetron 4 mg disintegrating tablet 4 mg PO Q8H #7 tabs 05/21/22 [Rx Last Taken Unknown] prednisone 20 mg tablet 20 mg PO BID #60 tabs 05/21/22 [Rx Last Taken Unknown] promethazine 25 mg tablet 25 mg PO Q6H PRN PRN Nausea #10 TABLETS 06/29/22 [Rx Last Taken Unknown] Allergy/AdvReac Type Severity Reaction Status Date / Time metformin Allergy Diarrhea Verified 06/29/22 05:13 acetaminophen [From Percocet] AdvReac Angioedema Verified 06/29/22 05:13 guaifenesin [From Mucinex] AdvReac Other Verified 06/29/22 05:13 hydrocodone AdvReac Angioedema Verified 06/29/22 05:13 oxycodone AdvReac Angioedema Verified 06/29/22 05:13 Sulfa (Sulfonamide AdvReac Angioedema Verified 06/29/22 05:13 Antibiotics) Family History Father Diabetes Father Diabetes Surgical History H/O section Social History Smoking Status: Never smoker alcohol intake: never ROS ROS ED Constitutional Constitutional ED: Reports malaise; Denies body ache(s), chills or fever(s) Eyes Eyes: Denies change in vision or diplopia ENT ENT ED: Denies rhinorrhea or sore throat Cardiovascular Cardiovascular: Denies chest pain or palpitations Respiratory/Chest Respiratory/Chest: Denies cough or dyspnea Gastrointestinal Gastrointestinal: Reports abdominal pain, diarrhea, nausea and vomiting; Denies hematemesis, hematochezia or melena Genitourinary Genitourinary ED: Denies dysuria or hematuria Musculoskeletal Musculoskeletal: Denies back pain or neck pain Integumentary Denies abscess or rash Neurologic Neurologic: Denies headache(s), paresthesias or weakness Psychiatric Psychiatric: Denies anxiety or suicidal thoughts EXAM Physical Exam Const Vital Signs: 06/29/22 05:11 06/29/22 07:25 Temperature 95.9 F L Temperature Source Temporal Pulse Rate 96 88 Respiratory Rate 18 14 Blood Pressure 100/57 L 123/101 H Blood Pressure Mean 71 108 Pulse Ox 96 97 Oxygen Delivery Method Room Air Room Air Positive well nourished and well developed General Appearance ED: well developed and NAD HEENT Reports moist mucous membranes normocephalic and atraumatic Eyes PERRL and EOMs intact bilaterally Neck full ROM and supple Resp normal respiratory effort and clear to auscultation bilaterally Cardio regular rate, regular rhythm and no murmurs GI non-tender GI Narrative: Mild soft abdominal distention, diffuse, not tight/taut Auscultation: normoactive bowel sounds Palpation: soft Back/Spine no CVA tenderness General Back: other FROM Extremity normal to inspection General Extremety ED: Negative for edema, pulses abnormal or tenderness General Extremity: Negative for edema or pulses abnormal Neuro oriented x3, CN's II-XII intact bilaterally and no sensory deficits noted Sensorium / Orientation: awake and alert Motor Exam: strength 5/5 throughout Skin no rashes or lesions noted and no wounds MDM MDM MDM Narrative Medical decision making narrative: Labs obtained while we treated her empirically with IV fluids, Reglan which helped a little but not enough and then Zofran which helped more. Mild nonspecific leukocytosis, she does have low potassium and low calcium. Her calcium has been low in the past, it is lower now. She does have hypoalbuminemia as well, which she has had in the past likely related to her pre-existing diagnoses/problems. She will be given oral and IV potassium while the rest of the fluids go in. She is tolerating oral fluids well now. Plan is for discharge. Suspect viral gastroenteritis here given the history. Prescribed promethazine to use in addition to the Zofran she already has at home. She is comfortable with that plan. She has been told to use Tums in the past to replace her calcium which I would recommend doing again. Lab Data Attestation: I reviewed the patient's lab results. Labs: Laboratory Results - last 24 hr 06/29/22 06/29/22 05:35 05:35 WBC 13.8 H RBC 5.19 Hgb 16.4 H Hct 48.4 H MCV 93.3 MCH 31.6 MCHC 33.9 RDW Std Deviation 44.9 H RDW Coeff of Miguel 13.1 Plt Count 330 MPV 9.2 Immature Gran % (Auto) 0.400 Neut % (Auto) 93.1 H Lymph % (Auto) 1.1 L [place] % (Auto) 4.8 Eos % (Auto) 0.5 Baso % (Auto) 0.1 Absolute Neuts (auto) 12.9 H Absolute Lymphs (auto) 0.15 L Nucleated RBC % 0 Sodium 143 Potassium 3.0 L Chloride 109 H Carbon Dioxide 24.0 Anion Gap 10 BUN 26 H Creatinine 0.34 L Estim Creat Clear Calc 169.31 Est GFR (MDRD) Af Amer 280 Est GFR (MDRD) Non-Af 231 BUN/Creatinine Ratio 75.8 H Glucose 202 H Calcium 6.5 L* Total Bilirubin 0.30 AST 18 ALT 39 Alkaline Phosphatase 61 Total Protein 4.1 L Albumin 1.9 L Globulin 2.2 Albumin/Globulin Ratio 0.9 Discharge Plan Triage Chief Complaint: Nausea/Vomiting ED Provider: Steve Lincoln Dx/Rx/DC Orders Clinical Impression: Viral gastroenteritis, Hypokalemia due to excessive gastrointestinal loss of potassium, Hypocalcemia, Hypoalbuminemia Instructions: Viral Gastroenteritis, ED Hypokalemia Prescriptions: New promethazine [promethazine] 25 MG tablet 25 mg PO Q6H PRN PRN (Reason: Nausea) Qty: 10 0RF No Action hyoscyamine sulfate [Levsin] 0.125 mg tablet 0.125 mg PO TID PRN (Reason: abdomial pin) Qty: 30 0RF furosemide 40 mg tablet 40 mg PO DAILY magnesium oxide 400 mg (241.3 mg magnesium) tablet 400 mg PO DAILY Label Comments: TAKE 1 TABLET BY MOUTH ONCE DAILY Creon 24,000-76,000 -120,000 unit capsule,delayed release(DR/EC) 7 cap PO DAILY Steglatro 5 mg tablet 5 mg PO DAILY sertraline 50 mg tablet 50 mg PO DAILY ondansetron 4 mg tablet,disintegrating 4 mg PO Q8H Qty: 7 0RF etodolac 400 mg tablet 400 mg PO TID Qty: 10 0RF prednisone 20 mg tablet 20 mg PO BID Qty: 60 1RF Primary Care Provider: Henry Wise Referrals: Henry Wise MD [Primary Care Provider] - 3-5 Days if not improving Activity Restrictions/Additional Instructions: 2 Tums tablets, 3 times per day to help replete your calcium. Disposition Disposition: Home, Self Care
[2022-06-29] MEDS: Metoclopramide 10 MG/2 ML Vial 5 MG IV (05:41)
[2022-06-29 05:43] LABS: Absolute Lymphocyte Count 0.15 X10^3/uL (0.83-4.51); Absolute Neutrophil Count 12.9 X10^3/uL (2.0-7.7); Basophil# 0.02 X10^3/uL; Basophil% 0.1 % (0-1); Eosinophil# 0.07 X10^3/uL; Eosinophils% 0.5 % (0-5); Hematocrit 48.4 % (37-47); Hemoglobin 16.4 g/dL (12.0-15.0); Lymphocyte # 0.15 X10^3/ul (0.83-4.51); Lymphocyte % 1.1 % (19-41); Mean Corp Hgb Conc 33.9 g/dL (32-36); Mean Corpuscular Hgb 31.6 pg (27.0-32.0); Mean Corpuscular Volume 93.3 fL (81-99); Mean Platelet Vol. 9.2 fl (6.2-12.0); Monocyte# 0.66 X10^3/uL; Monocyte% 4.8 % (0-10); NRBC Flagged by Analyzer 0 % (0-5); Neutrophil # 12.89 X10^3/uL (2.7-7.7); Neutrophil % 93.1 % (47-70); POSITIVE DIFFERENTIAL YES; Platelet Count 330 K/mm3 (150-450); RBC Distribution Width CV 13.1 % (11.6-14.6); RBC Distribution Width SD 44.9 fl (35.1-43.9); Red Blood Count 5.19 M/mm3 (4.2-5.4); White Blood Count 13.8 K/mm3 (4.4-11.0)
[2022-06-29] MEDS: 0.9% Normal Saline 1,000 ML 1000 ML IV (05:44)
[2022-06-29 05:57] LABS: Differential Indicated SCAN CRITERIA MET
[2022-06-29] MEDS: Ondansetron 4 MG/2 ML Vial IV (06:46)
[2022-06-29 06:47] LABS: ALB/GLOB Ratio 0.9 RATIO (0.9-2.4); AST(SGOT) 18 U/L (15-37); Alanine Aminotransfer ALT/SGPT 39 U/L (13-56); Albumin, Serum 1.9 g/dL (3.2-5.0); Alkaline Phosphatase 61 U/L (45-117); Anion Gap 10 (5-15); BUN 26 mg/dL (7-18); BUN/Creat Ratio 75.8 RATIO (10-20); Calcium,Total 6.5 mg/dL (8.5-10.1); Chloride 109 mmol/L (98-107); Creatinine, Serum 0.34 mg/dL (0.55-1.02); EST Glomerular Filtration Rate 231 mL/min (>60); Est Glom Filt Rate - Afr Amer 280 mL/min (>60); Estimated Creatinine Clearance 169.31 ml/min; Globulin 2.2 g/dL (2.2-4.2); Glucose 202 mg/dL (74-106); Protein, Total 4.1 g/dL (6.4-8.2); Sodium Level 143 mmol/L (136-145)
[2022-06-29] MEDS: Potassium Chloride Oral Tablet 20 MEQ 40 MEQ PO (07:14)
[2022-06-29] MEDS: Potassium Chloride 10mEq/100mL 10 MEQ/100 ML IV.SOLN. 100 MEQ IV BOLUS (07:16)
[2022-06-29 07:25] VITALS: BP 123/101; PULSE 88; RESP 14; O2SAT 97
[2022-06-29] MEDS: proMETHazine 25 MG/ML Syringe 12.5 MG IM (08:21)
[2022-06-29 08:27] VITALS: BP 112/70; PULSE 100; RESP 21; O2SAT 100
== END 2022-06-29 08:55 | disposition home or self-care (01) ==
PROVIDERS: Emergency Provider Emergency Medicine; PCP Family Medicine; Visit Provider Emergency Medicine
DX: A08.4 Viral intestinal infection, unspecified (principal); D83.9 Common variable immunodeficiency, unspecified; E11.9 Type 2 diabetes mellitus without complications; E88.09 Other disorders of plasma-protein metabolism, not elsewhere classified; E87.6 Hypokalemia; Z79.899 Other long term (current) drug therapy; Z79.84 Long term (current) use of oral hypoglycemic drugs
CPT/HCPCS: 80053; 85025; 96361; 96365; 96372; 96375; 99283; J7030; A4216; J2405

== ENCOUNTER → 2022-08-11 | Outpatient (CLI) | payer OTHER, SELFPAY ==
[2022-08-11 12:27] LABS: Absolute Lymphocyte Count 0.61 X10^3/uL (0.83-4.51); Basophil# 0.04 X10^3/uL; Basophil% 0.6 % (0-1); Eosinophil# 0.09 X10^3/uL; Eosinophils% 1.4 % (0-5); Hematocrit 42.9 % (37-47); Hemoglobin 13.9 g/dL (12.0-15.0); Lymphocyte # 0.61 X10^3/ul (0.83-4.51); Lymphocyte % 9.5 % (19-41); Mean Corp Hgb Conc 32.4 g/dL (32-36); Mean Corpuscular Hgb 30.6 pg (27.0-32.0); Mean Corpuscular Volume 94.5 fL (81-99); Monocyte# 0.65 X10^3/uL; Monocyte% 10.1 % (0-10); NRBC Flagged by Analyzer 0 % (0-5); Neutrophil # 4.98 X10^3/uL (2.7-7.7); Neutrophil % 77.6 % (47-70); Platelet Count 376 K/mm3 (150-450); RBC Distribution Width CV 12.2 % (11.6-14.6); RBC Distribution Width SD 42.3 fl (35.1-43.9); Red Blood Count 4.54 M/mm3 (4.2-5.4); White Blood Count 6.4 K/mm3 (4.4-11.0)
[2022-08-11 12:41] LABS: ALB/GLOB Ratio 0.8 RATIO (0.9-2.4); AST(SGOT) 22 U/L (15-37); Alanine Aminotransfer ALT/SGPT 37 U/L (13-56); Albumin, Serum 1.8 g/dL (3.2-5.0); Alkaline Phosphatase 69 U/L (45-117); Anion Gap 5 (5-15); BUN 23 mg/dL (7-18); BUN/Creat Ratio 83.9 RATIO (10-20); Calcium,Total 7.3 mg/dL (8.5-10.1); Chloride 114 mmol/L (98-107); Cholesterol 135 mg/dL (200); Creatinine, Serum 0.27 mg/dL (0.55-1.02); EST Glomerular Filtration Rate 299 mL/min (>60); Est Glom Filt Rate - Afr Amer 362 mL/min (>60); Globulin 2.4 g/dL (2.2-4.2); Glucose 129 mg/dL (74-106); Hemoglobin A1c 6.3 % (3.8-5.6); High Density Lipoprotein 41 mg/dL; Magnesium 1.9 mg/dL (1.6-2.6); Potassium 4.4 mmol/L (3.5-5.1); Protein, Total 4.2 g/dL (6.4-8.2); Sodium Level 140 mmol/L (136-145); Total Bilirubin < 0.10 mg/dL (0.20-1.00); Triglycerides 80 mg/dL; Very Low Density Lipoprotein 16 mg/dL (5-40)
[2022-08-11 13:01] LABS: Microalbumin,Random Urine < 5.0 mg/L (NO RANGE EST.)
== END | disposition home or self-care (01) ==
LOC: MFPLAB 10:16
PROVIDERS: PCP Family Medicine; Referring Provider Family Medicine; Visit Provider Family Medicine
DX: E11.9 Type 2 diabetes mellitus without complications (principal); E83.42 Hypomagnesemia
CPT/HCPCS: 36415; 80053; 80061; 82043; 82570; 83036; 83735; 85025

== ENCOUNTER → 2022-09-08 | Outpatient (CLI) | payer OTHER, SELFPAY ==
--- NOTE | 2022-09-08 16:53 | RAD_ITS ---
INDICATION: pain EXAMINATION/TECHNIQUE: X-RAY - LEFT XR Knee Complete 4 Views or More COMPARISON: None. FINDINGS: 4 views of the left knee. BONES: Normal anatomic alignment without evidence of fracture or subluxation. No concerning bony lesion or abnormal sclerosis to suggest lesion. JOINTS: No significant degenerative change. SOFT TISSUES: Unremarkable. RAD/Knee 4 or More Views IMPRESSION: No acute osseous abnormality of the left knee. Electronically Signed: Anastacio Hernandez MD at 22:36 EDT ,
== END | disposition home or self-care (01) ==
PROVIDERS: PCP Family Medicine; Referring Provider Family Medicine; Visit Provider Family Medicine
DX: M25.562 Pain in left knee (principal)
CPT/HCPCS: 73564

== ENCOUNTER → 2022-10-20 | Outpatient (CLI) | payer OTHER, SELFPAY ==
[2022-10-20 18:38] LABS: AST(SGOT) 20 U/L (15-37); Alanine Aminotransfer ALT/SGPT 27 U/L (13-56); Albumin, Serum 1.9 g/dL (3.2-5.0); Alkaline Phosphatase 106 U/L (45-117); Anion Gap 7 (5-15); BUN 21 mg/dL (7-18); BUN/Creat Ratio 30.1 RATIO (10-20); Calcium,Total 6.9 mg/dL (8.5-10.1); Chloride 114 mmol/L (98-107); EST Glomerular Filtration Rate 102 mL/min (>60); Est Glom Filt Rate - Afr Amer 123 mL/min (>60); Glucose 159 mg/dL (74-106); Potassium 3.5 mmol/L (3.5-5.1); Prealbumin 20.9 mg/dL (20.0-40.0); Protein, Total 3.9 g/dL (6.4-8.2); Sodium Level 144 mmol/L (136-145)
== END | disposition home or self-care (01) ==
LOC: MFPLAB 15:07
PROVIDERS: PCP Family Medicine; Visit Provider Family Medicine
DX: E46 Unspecified protein-calorie malnutrition (principal)
CPT/HCPCS: 36415; 80053; 84134

== ENCOUNTER → 2022-11-24 | Outpatient (CLI) | payer OTHER, SELFPAY ==
[2022-11-24 18:26] LABS: ALB/GLOB Ratio 0.6 RATIO (0.9-2.4); AST(SGOT) 21 U/L (15-37); Alanine Aminotransfer ALT/SGPT 22 U/L (13-56); Albumin, Serum 1.6 g/dL (3.2-5.0); Alkaline Phosphatase 104 U/L (45-117); Anion Gap 5 (5-15); BUN 20 mg/dL (7-18); BUN/Creat Ratio 48.3 RATIO (10-20); Calcium,Total 6.8 mg/dL (8.5-10.1); Chloride 107 mmol/L (98-107); Creatinine, Serum 0.41 mg/dL (0.55-1.02); EST Glomerular Filtration Rate 186 mL/min (>60); Est Glom Filt Rate - Afr Amer 225 mL/min (>60); Globulin 2.7 g/dL (2.2-4.2); Glucose 169 mg/dL (74-106); Potassium 3.1 mmol/L (3.5-5.1); Protein, Total 4.3 g/dL (6.4-8.2); Sodium Level 138 mmol/L (136-145)
== END | disposition home or self-care (01) ==
LOC: MFPLAB 14:55
PROVIDERS: PCP Family Medicine; Visit Provider Family Medicine
DX: E88.09 Other disorders of plasma-protein metabolism, not elsewhere classified (principal)
CPT/HCPCS: 36415; 80053; 84134

== ENCOUNTER → 2022-11-30 | Outpatient (CLI) | payer OTHER, SELFPAY ==
[2022-11-30 18:18] LABS: Anion Gap 5 (5-15); BUN 21 mg/dL (7-18); BUN/Creat Ratio 36.6 RATIO (10-20); Calcium,Total 6.9 mg/dL (8.5-10.1); Chloride 112 mmol/L (98-107); Creatinine, Serum 0.57 mg/dL (0.55-1.02); EST Glomerular Filtration Rate 128 mL/min (>60); Est Glom Filt Rate - Afr Amer 154 mL/min (>60); Glucose 111 mg/dL (74-106); Sodium Level 141 mmol/L (136-145)
== END | disposition home or self-care (01) ==
LOC: MFPLAB 14:30
PROVIDERS: PCP Family Medicine; Visit Provider Family Medicine
DX: E87.6 Hypokalemia (principal)
CPT/HCPCS: 36415; 80048

== ENCOUNTER → 2022-12-06 | Outpatient (CLI) | payer OTHER, SELFPAY ==
[2022-12-06 10:46] LABS: ALB/GLOB Ratio 0.8 RATIO (0.9-2.4); AST(SGOT) 14 U/L (15-37); Alanine Aminotransfer ALT/SGPT 22 U/L (13-56); Albumin, Serum 1.7 g/dL (3.2-5.0); Alkaline Phosphatase 90 U/L (45-117); Anion Gap 5 (5-15); BUN 20 mg/dL (7-18); BUN/Creat Ratio 59.7 RATIO (10-20); Calcium,Total 7.3 mg/dL (8.5-10.1); Chloride 113 mmol/L (98-107); Creatinine, Serum 0.34 mg/dL (0.55-1.02); EST Glomerular Filtration Rate 237 mL/min (>60); Est Glom Filt Rate - Afr Amer 287 mL/min (>60); Glucose 131 mg/dL (74-106); Protein, Total 3.7 g/dL (6.4-8.2); Sodium Level 142 mmol/L (136-145)
== END | disposition home or self-care (01) ==
LOC: MFPLAB 09:26
PROVIDERS: PCP Family Medicine; Visit Provider Family Medicine
DX: R60.0 Localized edema (principal)
CPT/HCPCS: 36415; 80053

== ENCOUNTER → 2022-12-09 | Outpatient (CLI) | payer OTHER, SELFPAY ==
[2022-12-09 16:49] LABS: Bacteria 0 SEEN /hpf (None Seen); Mucous, Urine 0 SEEN /hpf (<or=2+); Red Blood Cells-Urine 0 SEEN /hpf (0-5); Squamous Epithelial Cells - UA 0 SEEN /hpf (5-10); White Blood Cells 0 SEEN /hpf (0-5)
[2022-12-09 17:19] LABS: Absolute Lymphocyte Count 0.48 X10^3/uL (0.83-4.51); Absolute Neutrophil Count 5.4 X10^3/uL (2.0-7.7); Basophil# 0.04 X10^3/uL; Basophil% 0.6 % (0-1); Eosinophil# 0.14 X10^3/uL; Eosinophils% 2.1 % (0-5); Hematocrit 43.2 % (37-47); Hemoglobin 14.2 g/dL (12.0-15.0); Lymphocyte # 0.48 X10^3/ul (0.83-4.51); Lymphocyte % 7.4 % (19-41); Mean Corp Hgb Conc 32.9 g/dL (32-36); Mean Corpuscular Hgb 30.7 pg (27.0-32.0); Mean Corpuscular Volume 93.5 fL (81-99); Monocyte# 0.48 X10^3/uL; Monocyte% 7.4 % (0-10); NRBC Flagged by Analyzer 0 % (0-5); Neutrophil # 5.36 X10^3/uL (2.7-7.7); Neutrophil % 82.2 % (47-70); POSITIVE DIFFERENTIAL YES; Platelet Count 394 K/mm3 (150-450); RBC Distribution Width CV 12.9 % (11.6-14.6); RBC Distribution Width SD 44.3 fl (35.1-43.9); Red Blood Count 4.62 M/mm3 (4.2-5.4); White Blood Count 6.5 K/mm3 (4.4-11.0)
[2022-12-09 17:29] LABS: Color, Urine Yellow (Yellow); Glucose, Dipstick 1000 mg/dl (Normal); Ketone-Dipstick Negative (Negative); Leukocyte Esterase-Dipstick Negative /ul (Negative); Nitrite-Dipstick Negative (Negative); Occult Blood-Urine Negative /ul (Negative); Protein-Dipstick Negative (Negative); Specific Gravity, Urine 1.015 (1.002-1.030); Urine Bilirubin Dipstick Negative (Negative); Urine Clarity Clear (Clear); Urine Urobilinogen Normal (Normal)
[2022-12-09 17:38] LABS: Differential Indicated SCAN CRITERIA MET
[2022-12-09 17:52] LABS: Hemoglobin A1c 5.7 % (3.8-5.6)
[2022-12-09 17:56] LABS: Differential Comment SCANNED
[2022-12-09 17:58] LABS: Microalbumin,Random Urine < 5.0 mg/L (NO RANGE EST.)
[2022-12-09 17:59] LABS: ALB/GLOB Ratio 0.7 RATIO (0.9-2.4); AST(SGOT) 16 U/L (15-37); Alanine Aminotransfer ALT/SGPT 23 U/L (13-56); Albumin, Serum 1.7 g/dL (3.2-5.0); Alkaline Phosphatase 98 U/L (45-117); Anion Gap 7 (5-15); BUN 26 mg/dL (7-18); BUN/Creat Ratio 50.2 RATIO (10-20); Calcium,Total 7.5 mg/dL (8.5-10.1); Chloride 113 mmol/L (98-107); Cholesterol 128 mg/dL (200); Creatinine, Serum 0.52 mg/dL (0.55-1.02); EST Glomerular Filtration Rate 143 mL/min (>60); Est Glom Filt Rate - Afr Amer 173 mL/min (>60); Globulin 2.6 g/dL (2.2-4.2); Glucose 194 mg/dL (74-106); High Density Lipoprotein 46 mg/dL; Potassium 3.4 mmol/L (3.5-5.1); Prealbumin 22.2 mg/dL (20.0-40.0); Protein, Total 4.3 g/dL (6.4-8.2); Sodium Level 143 mmol/L (136-145); Triglycerides 105 mg/dL; Very Low Density Lipoprotein 21 mg/dL (5-40)
== END | disposition home or self-care (01) ==
LOC: MFPLAB 16:47
PROVIDERS: PCP Family Medicine; Visit Provider Family Medicine
DX: E11.8 Type 2 diabetes mellitus with unspecified complications (principal); E88.09 Other disorders of plasma-protein metabolism, not elsewhere classified
CPT/HCPCS: 80053; 80061; 81001; 82043; 82570; 83036; 84134; 85025

== ENCOUNTER → 2022-12-29 | Outpatient (CLI) | payer OTHER, SELFPAY ==
[2023-01-03 15:08] LABS: VITAMIN B6 3.3 ug/L (3.4-65.2)
== END | disposition home or self-care (01) ==
LOC: MFPLAB 10:50
PROVIDERS: PCP Family Medicine
DX: K90.49 Malabsorption due to intolerance, not elsewhere classified (principal)
CPT/HCPCS: 36415; 84207

== ENCOUNTER 2023-02-16 15:42 | Emergency (ER) | payer OTHER, SELFPAY ==
[2023-02-16 15:43] VITALS: BP 122/89; PULSE 71; RESP 16; TEMP 36.1; O2SAT 98; BMI 21.2
[2023-02-16 16:36] LABS: Absolute Lymphocyte Count 0.58 X10^3/uL (0.83-4.51); Absolute Neutrophil Count 4.8 X10^3/uL (2.0-7.7); Basophil# 0.02 X10^3/uL; Basophil% 0.3 % (0-1); Eosinophil# 0.13 X10^3/uL; Eosinophils% 2.2 % (0-5); Hematocrit 46.9 % (37-47); Hemoglobin 15.6 g/dL (12.0-15.0); Lymphocyte # 0.58 X10^3/ul (0.83-4.51); Lymphocyte % 9.7 % (19-41); Mean Corp Hgb Conc 33.3 g/dL (32-36); Mean Corpuscular Hgb 31.3 pg (27.0-32.0); Mean Corpuscular Volume 94.2 fL (81-99); Mean Platelet Vol. 9.6 fl (6.2-12.0); Monocyte# 0.48 X10^3/uL; NRBC Flagged by Analyzer 0 % (0-5); Neutrophil # 4.78 X10^3/uL (2.7-7.7); Neutrophil % 79.5 % (47-70); POSITIVE DIFFERENTIAL YES; Platelet Count 421 K/mm3 (150-450); RBC Distribution Width CV 12.4 % (11.6-14.6); RBC Distribution Width SD 42.6 fl (35.1-43.9); Red Blood Count 4.98 M/mm3 (4.2-5.4)
[2023-02-16 16:40] LABS: Differential Indicated SCAN CRITERIA MET
--- NOTE | 2023-02-16 16:49 | EX.ED.DYSGE1 ---
HPI History of Present Illness Chief Complaint: General Illness Informant: patient Narrative Narrative: Patient presents with worsening of her baseline diarrhea. This patient has an unknown protein deficiency. This has been worked up for many years. She is also had chronic diarrhea since the age of 4. She normally moves her bowels 20 times a day but today its been 30. She sees [facility] and they are trying to sort out the causes of her problems. She is already seeing [facility] with out a solution. She is on Zofran frequently but she is really not having nausea now. One of her 7-year-old daughters came home with some diarrhea. Normally when she gets exposed she gets worse. She really just came in to get IV fluids and would like to go home. Of note she is also on magnesium which although causes diarrhea she needs to be on it to replace the magnesium she loses. She also has diabetes. She also has nonspecific immune issues which are also trying to be sorted out without any answer. She has had multiple endoscopies and is set to have another endoscopy in the end of March. [facility] Medical History Abdominal pain Ascites Borderline diabetes Bowel obstruction CVID (common variable immunodeficiency) Diabetes Diarrhea Liver disease Malabsorption due to intolerance, not elsewhere classified Protein deficiency Home Medications hyoscyamine sulfate 0.125 mg tablet (Levsin) 0.125 mg PO TID PRN abdomial pin #30 tabs 01/17/21 [Rx Last Taken 05/20/22] ertugliflozin 5 mg tablet (Steglatro) 5 mg PO DAILY DM 05/20/22 [History Last Taken 05/19/22] furosemide 40 mg tablet 40 mg PO DAILY FLUID 05/20/22 [History Last Taken 05/19/22] nfjqjy-jmoizoti-zdplsex 24,000-76,000-120,000 unit capsule,delayed rel (Creon) 7 cap PO DAILY PANCREAS 05/20/22 [History Last Taken 05/19/22] magnesium oxide 400 mg (241.3 mg magnesium) tablet 400 mg PO DAILY SUPPLEMENT 05/20/22 [History Last Taken 05/19/22] sertraline 50 mg tablet 50 mg PO DAILY MOOD/ANXIETY 05/20/22 [History Last Taken 05/19/22] Allergy/AdvReac Type Severity Reaction Status Date / Time metformin Allergy Diarrhea Verified 02/16/23 15:43 acetaminophen [From Percocet] AdvReac Angioedema Verified 02/16/23 15:43 guaifenesin [From Mucinex] AdvReac Other Verified 02/16/23 15:43 hydrocodone AdvReac Angioedema Verified 02/16/23 15:43 oxycodone AdvReac Angioedema Verified 02/16/23 15:43 Sulfa (Sulfonamide AdvReac Angioedema Verified 02/16/23 15:43 Antibiotics) Family History Father Diabetes Father Diabetes Surgical History H/O section H/O neck surgery Social History household members: spouse number of children: 4 current occupation: [employer] Smoking Status: Never smoker alcohol intake: never substance use type: does not use seatbelt use: always do you feel safe at home: Yes 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 Some specific details below. Constitutional: No recent fevers or chills. EYE: No visual complaints or pain. No icterus. ENT: No difficulty swallowing. No swelling. No pain. CV: No chest pain or palpitations. Respiratory: No dyspnea. No hemoptysis. No difficulty taking breaths. GI: Please see history of present illness. : No frequency dysuria or hematuria. Does not sound like she has had a change in urine output but she is on Lasix Musculoskeletal: No recent trauma. No pains. Skin: No rash. Nondiaphoretic. Neuro: No weakness or numbness. Endocrine: No polyuria or polydipsia. EXAM Physical Exam Narrative Exam Narrative: CONSTITUTIONAL: Patient is nontoxic in appearance. The patient looks comfortable. HEENT: No notable trauma. Mucous membranes are still. No sinus tenderness. No indication of pain with swallowing. EYES: No conjunctival injection. No proptosis. CARDIOVASCULAR: Regular rate. Not tachycardic. Regular rhythm. No notable murmur. No JVD. RESPIRATORY: No respiratory distress. Breathing is unlabored. No wheezes. No rhonchi. No rales. No pain with a deep breath. GASTROINTESTINAL: Abdomen does look a little bit distended for her size. But she states this is normal for her. She does have a long history of ascites and that is why she is on the Lasix. She has had extensive evaluation of liver function. But there is no tenderness. No mass. Overall her exam is benign other than the mild GENITOURINARY: No tenderness over the bladder. No CVA tenderness. MUSCULOSKELETAL: Atraumatic. No peripheral edema. No cord. No tenderness along the deep venous system. No asymmetry. NEUROLOGICAL: Patient is alert and appropriate. No focal deficit noted. SKIN: No noted rashes. No diaphoresis. PSYCHIATRIC: Patient is calm. Mood is appropriate. Const Vital Signs: 02/16/23 15:43 Temperature 97 F L Temperature Source Temporal Pulse Rate 71 Respiratory Rate 16 Blood Pressure 122/89 H Blood Pressure Mean 100 Pulse Ox 98 Oxygen Delivery Method Room Air MDM MDM MDM Narrative Medical decision making narrative: Patient CBC is normal other than mildly high hemoglobin. Patient's electrolytes show minimally dry potassium but no marked change. Glucose is just mildly up. Patient's magnesium is normal. I went back to talk to the patient. She feels much better. She was actually up walking around. She has Zofran at home if needed but nausea is not an issue with this. She states all she really wanted was IV fluid as she has dealt with this problem for most of her life. Lab Data Attestation: I reviewed the patient's lab results. Labs: Laboratory Results - last 24 hr 02/16/23 16:21 WBC 6.0 RBC 4.98 Hgb 15.6 H Hct 46.9 MCV 94.2 MCH 31.3 MCHC 33.3 RDW Std Deviation 42.6 RDW Coeff of Miguel 12.4 Plt Count 421 MPV 9.6 Immature Gran % (Auto) 0.300 Neut % (Auto) 79.5 H Lymph % (Auto) 9.7 L Yell % (Auto) 8.0 Eos % (Auto) 2.2 Baso % (Auto) 0.3 Absolute Neuts (auto) 4.8 Absolute Lymphs (auto) 0.58 L Nucleated RBC % 0 Differential Comment SCANNED Sodium 140 Potassium 3.4 L Chloride 110 H Carbon Dioxide 26.0 Anion Gap 4 L BUN 25 H Creatinine 0.55 Estim Creat Clear Calc 103.56 Est GFR (MDRD) Af Amer 161 Est GFR (MDRD) Non-Af 133 BUN/Creatinine Ratio 45.4 H Glucose 185 H Calcium 7.1 L Magnesium 2.3 Discharge Plan Triage Chief Complaint: General Illness ED Provider: Sina Herrera Dx/Rx/DC Orders Clinical Impression: Diarrhea Instructions: ED Diarrhea, Unknown Cause Prescriptions: No Action hyoscyamine sulfate [Levsin] 0.125 mg tablet 0.125 mg PO TID PRN (Reason: abdomial pin) Qty: 30 0RF furosemide 40 mg tablet 40 mg PO DAILY magnesium oxide 400 mg (241.3 mg magnesium) tablet 400 mg PO DAILY Patient Comments: TAKE 1 TABLET BY MOUTH ONCE DAILY Creon 24,000-76,000 -120,000 unit capsule,delayed release(DR/EC) 7 cap PO DAILY Steglatro 5 mg tablet 5 mg PO DAILY sertraline 50 mg tablet 50 mg PO DAILY Primary Care Provider: Henry Wise Referrals: Henry Wise MD [Primary Care Provider] - 3-5 Days Disposition Disposition: Home, Self Care
[2023-02-16 16:50] LABS: Anion Gap 4 (5-15); BUN 25 mg/dL (7-18); BUN/Creat Ratio 45.4 RATIO (10-20); Calcium,Total 7.1 mg/dL (8.5-10.1); Chloride 110 mmol/L (98-107); Creatinine, Serum 0.55 mg/dL (0.55-1.02); EST Glomerular Filtration Rate 133 mL/min (>60); Est Glom Filt Rate - Afr Amer 161 mL/min (>60); Estimated Creatinine Clearance 103.56 ml/min; Glucose 185 mg/dL (74-106); Potassium 3.4 mmol/L (3.5-5.1); Sodium Level 140 mmol/L (136-145)
[2023-02-16] MEDS: Ondansetron 4 MG/2 ML Vial IV (16:54)
[2023-02-16] MEDS: 0.9% Normal Saline (1000mL) 1,000 ML 1000 ML IV (16:54)
[2023-02-16 17:11] LABS: Magnesium 2.3 mg/dL (1.6-2.6)
[2023-02-16 17:22] LABS: Differential Comment SCANNED
[2023-02-16 18:39] VITALS: BP 120/76; PULSE 72; RESP 16; O2SAT 98
== END 2023-02-16 18:40 | disposition home or self-care (01) ==
PROVIDERS: Emergency Provider Emergency Medicine; PCP Family Medicine; Visit Provider Emergency Medicine
DX: R19.7 Diarrhea, unspecified (principal); E11.9 Type 2 diabetes mellitus without complications
CPT/HCPCS: 80048; 83735; 85025; 96361; 96374; 99283; J7030; A4216; J2405

== ENCOUNTER → 2023-03-17 | Outpatient (CLI) | payer OTHER, SELFPAY ==
[2023-03-17 15:19] LABS: Absolute Lymphocyte Count 0.47 X10^3/uL (0.83-4.51); Absolute Neutrophil Count 4.8 X10^3/uL (2.0-7.7); Basophil# 0.02 X10^3/uL; Basophil% 0.3 % (0-1); Eosinophil# 0.12 X10^3/uL; Eosinophils% 2.1 % (0-5); Hemoglobin 15.7 g/dL (12.0-15.0); Lymphocyte # 0.47 X10^3/ul (0.83-4.51); Lymphocyte % 8.1 % (19-41); Mean Corp Hgb Conc 32.7 g/dL (32-36); Mean Corpuscular Hgb 31.4 pg (27.0-32.0); Mean Platelet Vol. 10.2 fl (6.2-12.0); Monocyte# 0.36 X10^3/uL; Monocyte% 6.2 % (0-10); NRBC Flagged by Analyzer 0 % (0-5); Neutrophil # 4.81 X10^3/uL (2.7-7.7); Neutrophil % 83.1 % (47-70); POSITIVE DIFFERENTIAL YES; Platelet Count 382 K/mm3 (150-450); RBC Distribution Width CV 13.1 % (11.6-14.6); RBC Distribution Width SD 45.9 fl (35.1-43.9); White Blood Count 5.8 K/mm3 (4.4-11.0)
[2023-03-17 15:38] LABS: ALB/GLOB Ratio 0.6 RATIO (0.9-2.4); AST(SGOT) 20 U/L (15-37); Alanine Aminotransfer ALT/SGPT 22 U/L (13-56); Albumin, Serum 1.6 g/dL (3.2-5.0); Alkaline Phosphatase 97 U/L (45-117); Anion Gap 6 (5-15); BUN 20 mg/dL (7-18); BUN/Creat Ratio 48.8 RATIO (10-20); Calcium,Total 6.6 mg/dL (8.5-10.1); Chloride 111 mmol/L (98-107); Cholesterol 152 mg/dL (200); Creatinine, Serum 0.41 mg/dL (0.55-1.02); EST Glomerular Filtration Rate 187 mL/min (>60); Est Glom Filt Rate - Afr Amer 227 mL/min (>60); Globulin 2.7 g/dL (2.2-4.2); Glucose 104 mg/dL (74-106); High Density Lipoprotein 42 mg/dL; Magnesium 2.2 mg/dL (1.6-2.6); Potassium 3.4 mmol/L (3.5-5.1); Protein, Total 4.3 g/dL (6.4-8.2); Sodium Level 143 mmol/L (136-145); Triglycerides 62 mg/dL; Very Low Density Lipoprotein 12 mg/dL (5-40)
[2023-03-17 15:44] LABS: Hemoglobin A1c 5.5 % (3.8-5.6)
[2023-03-17 16:04] LABS: Differential Indicated SCAN CRITERIA MET
[2023-03-17 16:09] LABS: Differential Comment SCANNED
[2023-03-17 16:12] LABS: Microalbumin,Random Urine < 5.0 mg/L (NO RANGE EST.)
== END | disposition home or self-care (01) ==
LOC: MFPLAB 11:25
PROVIDERS: PCP Family Medicine; Visit Provider Family Medicine
DX: Z00.00 Encounter for general adult medical examination without abnormal findings (principal); E11.8 Type 2 diabetes mellitus with unspecified complications
CPT/HCPCS: 36415; 80053; 80061; 82043; 82570; 83036; 83735; 85025

== ENCOUNTER → 2023-07-28 | Outpatient (CLI) | payer OTHER, SELFPAY ==
[2023-07-28 19:06] LABS: Hepatitis B Surface Antibody Reactive; Hepatitis B Surface Antigen Non-Reactive (Nonreactive); Hepatitis C Antibody Non-Reactive (Nonreactive)
[2023-08-01 14:10] LABS: Hepatitis B Core Ab Total Negative (Negative); QNTFERON TB Mitogen Value > 10.00 IU/mL (.); QNTFERON TB Nil Value 0 IU/mL (.); QNTFERON TB1+ Ag Value 0 IU/mL (.); QNTFERON TB2+ Ag Value 0.01 IU/mL (.); QNTIFERON TB Positive Criteria Negative (Negative)
== END | disposition home or self-care (01) ==
LOC: MTLAB 16:38
PROVIDERS: PCP Family Medicine
DX: K52.3 Indeterminate colitis (principal)
CPT/HCPCS: 36415; 86480; 86704; 86706; 86803; 87340

== ENCOUNTER → 2023-08-15 | Outpatient (CLI) | payer OTHER, SELFPAY ==
[2023-08-15 10:42] LABS: Bacteria 0 SEEN /hpf (None Seen); Mucous, Urine 0 SEEN /hpf (<or=2+)
[2023-08-15 12:31] LABS: Color, Urine Yellow (Yellow); Glucose, Dipstick 1000 mg/dl (Normal); Ketone-Dipstick Negative (Negative); Leukocyte Esterase-Dipstick 100 /ul (Negative); Nitrite-Dipstick Negative (Negative); Occult Blood-Urine Negative /ul (Negative); Protein-Dipstick Negative (Negative); Specific Gravity, Urine 1.015 (1.002-1.030); Urine Bilirubin Dipstick Negative (Negative); Urine Clarity Sl. Cloudy (Clear); Urine Urobilinogen Normal (Normal)
[2023-08-15 12:53] LABS: Absolute Lymphocyte Count 0.52 X10^3/uL (0.83-4.51); Absolute Neutrophil Count 4.9 X10^3/uL (2.0-7.7); Basophil# 0.04 X10^3/uL; Basophil% 0.7 % (0-1); Eosinophil# 0.18 X10^3/uL; Hemoglobin 14.6 g/dL (12.0-15.0); Lymphocyte # 0.52 X10^3/ul (0.83-4.51); Lymphocyte % 8.7 % (19-41); Mean Corp Hgb Conc 33.2 g/dL (32-36); Mean Corpuscular Hgb 32.2 pg (27.0-32.0); Mean Corpuscular Volume 97.1 fL (81-99); Monocyte# 0.35 X10^3/uL; Monocyte% 5.8 % (0-10); NRBC Flagged by Analyzer 0 % (0-5); Neutrophil # 4.89 X10^3/uL (2.7-7.7); Neutrophil % 81.5 % (47-70); POSITIVE DIFFERENTIAL YES; Platelet Count 358 K/mm3 (150-450); RBC Distribution Width CV 12.8 % (11.6-14.6); RBC Distribution Width SD 45.7 fl (35.1-43.9); Red Blood Count 4.53 M/mm3 (4.2-5.4)
[2023-08-15 12:58] LABS: Red Blood Cells-Urine 0-5 SEEN /hpf (0-5); Squamous Epithelial Cells - UA 10-25 SEEN /hpf (5-10); White Blood Cells 0-5 SEEN /hpf (0-5)
[2023-08-15 15:01] LABS: Microalbumin,Random Urine < 5.0 mg/L (NO RANGE EST.)
[2023-08-15 15:58] LABS: ALB/GLOB Ratio 0.8 RATIO (0.9-2.4); AST(SGOT) 26 U/L (15-37); Alanine Aminotransfer ALT/SGPT 33 U/L (13-56); Albumin, Serum 1.9 g/dL (3.2-5.0); Alkaline Phosphatase 74 U/L (45-117); Anion Gap 6 (5-15); BUN 17 mg/dL (7-18); BUN/Creat Ratio 31.2 RATIO (10-20); Calcium,Total 7.2 mg/dL (8.5-10.1); Chloride 114 mmol/L (98-107); Cholesterol 144 mg/dL (200); Creatinine, Serum 0.54 mg/dL (0.55-1.02); EST Glomerular Filtration Rate 135 mL/min (>60); Est Glom Filt Rate - Afr Amer 163 mL/min (>60); Globulin 2.5 g/dL (2.2-4.2); Glucose 128 mg/dL (74-106); High Density Lipoprotein 45 mg/dL; Protein, Total 4.4 g/dL (6.4-8.2); Sodium Level 142 mmol/L (136-145); Triglycerides 66 mg/dL; Very Low Density Lipoprotein 13 mg/dL (5-40)
[2023-08-15 16:50] LABS: Hemoglobin A1c 5.4 % (3.8-5.6)
== END | disposition home or self-care (01) ==
LOC: MFPLAB 10:40
PROVIDERS: PCP Family Medicine; Visit Provider Family Medicine
DX: E11.8 Type 2 diabetes mellitus with unspecified complications (principal); E83.42 Hypomagnesemia
CPT/HCPCS: 36415; 80053; 80061; 81001; 82043; 82570; 83036; 83735; 85025

== ENCOUNTER 2023-09-14 09:27 | Outpatient (RCR) | payer OTHER, SELFPAY ==
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
== END 2023-09-14 19:00 | disposition home or self-care (01) ==
LOC: PT 09:27
PROVIDERS: PCP Family Medicine; Referring Provider Orthopaedic Surgery; Visit Provider Orthopaedic Surgery
DX: M25.562 Pain in left knee (principal)
CPT/HCPCS: 97110; 97161

== ENCOUNTER → 2023-10-06 | Outpatient (CLI) | payer OTHER, SELFPAY ==
[2023-10-06 16:29] LABS: Ionized Calcium 4.43 mg/dL (4.36-5.20)
[2023-10-06 16:42] LABS: Calcium,Total 7.2 mg/dL (8.5-10.1)
[2023-10-06 22:08] LABS: Ionized Calcium Order ORDER TUBE
== END | disposition home or self-care (01) ==
LOC: MTLAB 14:07
PROVIDERS: PCP Family Medicine
DX: E83.51 Hypocalcemia (principal)
CPT/HCPCS: 36415; 82310; 82330

== ENCOUNTER 2023-11-18 20:33 | Observation (INO) | payer SELFPAY ==
[2023-11-18 20:34] VITALS: BP 185/85; PULSE 95; RESP 26; TEMP 35.9; O2SAT 99
[2023-11-18 20:36] VITALS: BMI 21.7
--- NOTE | 2023-11-18 20:59 | EKG12_ITS ---
Test Reason : DYSRHYTHMIA Blood Pressure : / mmHG Vent. Rate : 077 BPM Atrial Rate : 077 BPM P-R Int : 130 ms QRS Dur : 090 ms QT Int : 424 ms P-R-T Axes : 017 047 068 degrees QTc Int : 479 ms Normal sinus rhythm Normal ECG Confirmed by NICKOLAS KEITH, GARTH ([id number]), editorial writer JACKIE GARBER ([id number]) on 11/22/2023 9:45:01 AM Referred By: Confirmed By:AMERICA OLMOS MD
--- NOTE | 2023-11-18 20:59 | EX.ED.DYSGE1 ---
HPI History of Present Illness Chief Complaint: Abd Pain Detail of Chief Complaint: Paresthesias and right leg involuntary movements Informant: patient Narrative Narrative: Patient presents the emergency department complaint of paresthesias in her hands and numbness. Symptoms started about an hour ago. She also complains of right leg twitching and uncontrollably moving. Patient has history of type 2 diabetes and common variable immune disorder. Patient also takes Lasix daily and takes potassium and magnesium. She also has some mild abdominal discomfort which she always had but that is not why she is here today. She has had no nausea or vomiting. She denies recent illness although she was sneezing more yesterday and was wondering if she was getting sick. [facility] Medical History CVID (common variable immunodeficiency) Diabetes Bowel obstruction CVID (common variable immunodeficiency) Ascites Liver disease Malabsorption due to intolerance, not elsewhere classified Abdominal pain Diarrhea Protein deficiency Borderline diabetes Home Medications ?Medication ?Instructions ?Recorded ?Last Taken ?Type hyoscyamine sulfate 0.125 mg 0.125 mg PO TID PRN abdomial pin 01/17/21 05/20/22 Rx tablet (Levsin) #30 tabs furosemide 40 mg tablet 40 mg PO DAILY FLUID 05/20/22 05/19/22 History sertraline 50 mg tablet 50 mg PO DAILY MOOD/ANXIETY 05/20/22 05/19/22 History cholecalciferol (vitamin D3) 1,250 125 mcg PO QWEEK 08/28/23 Unknown History mcg (50,000 unit) tablet copper gluconate 2 mg capsule 2 mg PO DAILY 08/28/23 Unknown History cyanocobalamin (vitamin B-12) 1,000 mcg PO DAILY 08/28/23 Unknown History 1,000 mcg capsule diphenoxylate-atropine 2.5 2 tab PO Q6H 08/28/23 Unknown History mg-0.025 mg tablet empagliflozin 10 mg tablet 10 mg PO QDAY 08/28/23 Unknown History (Jardiance) epinephrine 0.3 mg/0.3 mL 0.3 mg IM 08/28/23 Unknown History injection, auto-injector ergocalciferol (vitamin D2) 1,250 1,250 mcg PO QWEEK 08/28/23 Unknown History mcg (50,000 unit) capsule human serum albumin diluent 0.03 % ml .Route 08/28/23 Unknown History injection solution immune globulin (human) (IgG) 10 g .Route 08/28/23 Unknown History gram intravenous solution levonorgestrel 21 mcg/24 hr (up to 1 device intrauterine ONCE 08/28/23 Unknown History 8 years) 52 mg intrauterine device (Mirena) magnesium L-lactate 84 mg 84 mg PO TID 08/28/23 Unknown History tablet,extended release meloxicam 7.5 mg tablet 7.5 mg PO DAILY PRN joint pain 08/28/23 Unknown History multivitamin 1 tab PO DAILY 08/28/23 Unknown History potassium chloride 20 mEq 20 meq PO BID 08/28/23 Unknown History tablet,extended release sulfamethoxazole 200 ml PO .3x/week infection prevention 08/28/23 Unknown History mg-trimethoprim 40 mg/5 mL oral suspension vitamin B complex 1 cap PO DAILY 08/28/23 Unknown History ondansetron HCl 4 mg tablet 4 mg PO Q8H PRN PRN nausea/vomiting 11/18/23 Unknown History Allergy/AdvReac Type Severity Reaction Status Date / Time adhesive tape Allergy Swelling Verified 11/18/23 20:34 metformin Allergy Diarrhea Verified 11/18/23 20:34 acetaminophen (From Percocet) AdvReac Angioedema Verified 11/18/23 20:34 guaifenesin (From Mucinex) AdvReac Other Verified 11/18/23 20:34 hydrocodone AdvReac Angioedema Verified 11/18/23 20:34 oxycodone AdvReac Angioedema Verified 11/18/23 20:34 Family History Father Diabetes Mother Diabetes Surgical History H/O neck surgery H/O section Social History household members: spouse number of children: 4 current occupation: [employer] Smoking Status: Never smoker alcohol intake: never substance use type: does not use seatbelt use: always do you feel safe at home: Yes 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 ROS ED Review of Systems ROS Unobtainable: other Constitutional Constitutional ED: Reports lethargy; Denies chills, fever(s), sweats or weight loss Eyes Eyes: Denies blurry vision, change in vision or diplopia ENT ENT ED: Denies rhinorrhea or sore throat Cardiovascular Cardiovascular: Denies chest pain, orthopnea or racing heartbeat Respiratory/Chest Respiratory/Chest: Denies cough, dyspnea, dyspnea on exertion, orthopnea or sputum Gastrointestinal Gastrointestinal: Reports abdominal pain; Denies diarrhea, nausea or vomiting Genitourinary Genitourinary ED: Denies dysuria, hematuria or urinary frequency Musculoskeletal Musculoskeletal: Denies arthralgias, back pain, myalgias or neck pain Integumentary Denies abscess, Abrasions or rash Neurologic Neurologic: Reports paresthesias and other Details: Right leg abnormal movements ; Denies headache(s) or weakness Psychiatric Psychiatric: Denies anxiety, depression or suicidal thoughts Endocrine Endocrinology: Denies polydipsia, polyphagia or polyuria Hematologic/Lymphatic Hematologic/Lymphatic: Denies easy bleeding, easy bruising or lymphadenopathy Allergic/Immunologic Allergic/Immunologic ED: Denies mouth swelling, tongue swelling or urticaria EXAM Physical Exam Const Vital Signs: 11/18/23 20:34 11/18/23 21:33 11/18/23 22:00 Temperature 96.6 F L Temperature Source Temporal Pulse Rate 95 74 78 Respiratory Rate 26 H 16 14 Blood Pressure 185/85 H 108/92 H 121/96 H Blood Pressure Mean 118 97 104 Pulse Ox 99 96 95 Oxygen Delivery Method Room Air Room Air Room Air 11/18/23 22:41 Temperature 97.4 F L Temperature Source Pulse Rate 75 Respiratory Rate 15 Blood Pressure 121/96 H Blood Pressure Mean 104 Pulse Ox 96 Oxygen Delivery Method Positive well nourished and well developed General Appearance ED: well developed and NAD HEENT Reports TM's clear and moist mucous membranes normocephalic and atraumatic; Negative for trauma or tenderness Tympanic Membrane ED: Yes TM's clear Eyes PERRL and EOMs intact bilaterally General Eye ED: Negative for pale conjunctiva or scleral icterus Neck no lymphadenopathy, supple and no JVD General: Negative for tenderness Chest Wall inspection of chest normal and palpation of chest normal Chest: Negative for tenderness Resp normal respiratory effort and clear to auscultation bilaterally Effort and Inspection: Negative for respiratory distress or pain with movement Auscultation: Negative for rhonchi, wheezes or diminished lung sounds Cardio regular rate, regular rhythm, S1 normal heart sound, S2 normal heart sound and no murmurs Peripheral Pulses: pulses 2+ throughout GI normal to inspection, nondistended, normoactive bowel sounds, soft to palpation, non-tender, non-distended and no masses Back/Spine no CVA tenderness and no thoracic nor lumbar tenderness Extremity normal to inspection General Extremety ED: Negative for edema General Extremity: Negative for edema Neuro oriented x3, CN's II-XII intact bilaterally, no sensory deficits noted and gait normal Neuro Narrative: Right leg constantly flexed and extended at the knee but she is able to control it and move it without difficulty. There is no twitching or obvious fasciculations noted. Deep tendon reflexes are plus 2 out of 4 bilaterally at the patella and Achilles. Patient has normal 5 extension. Sensorium / Orientation: awake, alert, oriented to person, oriented to place and oriented to time Motor Exam: strength 5/5 throughout and strength abnormal Psych mental status grossly normal Skin no rashes or lesions noted and no wounds MDM MDM MDM Narrative Medical decision making narrative: Patient presents to the emergency department with complaint of paresthesias to the hands and her right leg will not sit still. She has history of electrolyte imbalance and is on Lasix and takes magnesium as well as potassium. An IV line established. CBC with differential white count 7.7 hemoglobin 17.2 and platelet count of 466. Chemistries obtained showed a sodium 139 with potassium 3.2 and chloride of 105. Patient's calcium was low at 6.1. LFTs unremarkable. I did obtain an EKG on arrival showed a sinus rhythm with ventricular rate of 77 bpm with no acute ST segment changes. Due to the hypocalcemia I did give patient 1 g of calcium chloride IV. Her restless right leg resolved. She still complains of some paresthesias to her hands. Patient was ordered 40 mill equivalents of potassium chloride p.o. Will discuss case with hospitalist to evaluate patient for admission. Magnesium was ordered and results will be pending. Lab Data Attestation: I reviewed the patient's lab results. Labs: Laboratory Results - last 24 hr 11/18/23 20:45 WBC 7.7 RBC 5.25 Hgb 17.2 H Hct 49.4 H MCV 94.1 MCH 32.8 H MCHC 34.8 RDW Std Deviation 41.9 RDW Coeff of Miguel 12.1 Plt Count 466 H MPV 9.8 Immature Gran % (Auto) 0.300 Neut % (Auto) 70.8 H Lymph % (Auto) 13.8 L [place] % (Auto) 9.8 Eos % (Auto) 4.9 Baso % (Auto) 0.4 Absolute Neuts (auto) 5.5 Absolute Lymphs (auto) 1.06 Nucleated RBC % 0 Sodium 139 Potassium 3.2 L Chloride 105 Carbon Dioxide 26.0 Anion Gap 8 BUN 21 H Creatinine 0.64 Estim Creat Clear Calc 88.13 Est GFR (MDRD) Af Amer 136 Est GFR (MDRD) Non-Af 112 BUN/Creatinine Ratio 32.9 H Glucose 115 H Calcium 6.1 L* Magnesium 1.8 Total Bilirubin 0.10 L AST 26 ALT 34 Alkaline Phosphatase 83 Total Protein 4.6 L Albumin 2.0 L Globulin 2.6 Albumin/Globulin Ratio 0.8 L EKG Initial EKG: Attestation: I personally reviewed and interpreted this EKG as follows: Comments: Sinus rhythm with ventricular rate of 77 bpm with no acute ST segment changes Discharge Plan Dx/Rx/DC Orders Clinical Impression: Hypocalcemia, Acute hypokalemia Disposition Disposition: Acute Care Hospital [facility]
[2023-11-18 21:11] LABS: Absolute Lymphocyte Count 1.06 X10^3/uL (0.83-4.51); Absolute Neutrophil Count 5.5 X10^3/uL (2.0-7.7); Basophil# 0.03 X10^3/uL; Basophil% 0.4 % (0-1); Eosinophil# 0.38 X10^3/uL; Eosinophils% 4.9 % (0-5); Hematocrit 49.4 % (37-47); Hemoglobin 17.2 g/dL (12.0-15.0); Lymphocyte # 1.06 X10^3/ul (0.83-4.51); Lymphocyte % 13.8 % (19-41); Mean Corp Hgb Conc 34.8 g/dL (32-36); Mean Corpuscular Hgb 32.8 pg (27.0-32.0); Mean Corpuscular Volume 94.1 fL (81-99); Mean Platelet Vol. 9.8 fl (6.2-12.0); Monocyte# 0.75 X10^3/uL; Monocyte% 9.8 % (0-10); NRBC Flagged by Analyzer 0 % (0-5); Neutrophil # 5.45 X10^3/uL (2.7-7.7); Neutrophil % 70.8 % (47-70); Platelet Count 466 K/mm3 (150-450); RBC Distribution Width CV 12.1 % (11.6-14.6); RBC Distribution Width SD 41.9 fl (35.1-43.9); Red Blood Count 5.25 M/mm3 (4.2-5.4); White Blood Count 7.7 K/mm3 (4.4-11.0)
[2023-11-18] MEDS: 0.9% Normal Saline (1000mL) 1,000 ML 150 ML IV (21:23)
[2023-11-18 21:29] LABS: ALB/GLOB Ratio 0.8 RATIO (0.9-2.4); AST(SGOT) 26 U/L (15-37); Alanine Aminotransfer ALT/SGPT 34 U/L (13-56); Alkaline Phosphatase 83 U/L (45-117); Anion Gap 8 (5-15); BUN 21 mg/dL (7-18); BUN/Creat Ratio 32.9 RATIO (10-20); Calcium,Total 6.1 mg/dL (8.5-10.1); Chloride 105 mmol/L (98-107); Creatinine, Serum 0.64 mg/dL (0.55-1.02); EST Glomerular Filtration Rate 112 mL/min (>60); Est Glom Filt Rate - Afr Amer 136 mL/min (>60); Estimated Creatinine Clearance 88.13 ml/min; Globulin 2.6 g/dL (2.2-4.2); Glucose 115 mg/dL (74-106); Potassium 3.2 mmol/L (3.5-5.1); Protein, Total 4.6 g/dL (6.4-8.2); Sodium Level 139 mmol/L (136-145)
[2023-11-18 21:33] VITALS: BP 108/92; PULSE 74; RESP 16; O2SAT 96
[2023-11-18] MEDS: Calcium Chloride 1 GM/10 ML Syringe IVP (21:39)
[2023-11-18 22:00] VITALS: BP 121/96; PULSE 78; RESP 14; O2SAT 95
--- NOTE | 2023-11-18 22:13 | HP.PCM.HOS_ITS ---
HPI - General General Date of Admission: 11/18/23 Date of Service: 11/18/23 Chief Complaint: Hand paresthesias, leg spasms. HPI Narrative The patient is a 37 y/o F w/ PMHx: CVID w/ ongoing IV IG therapies, Malabsorption disease w/ protein deficiency/liver disease, Chronic abdominal pain, Anxiety and Depression, HTN, NIDDM who presents to the [facility] [place] ED on 11/18/23 secondary to paresthesias in her hands with symptoms starting approximate hour prior to arrival as well as right lower extremity intermittent twitching with chronic issues with mild abdominal discomfort and occasional nausea and emesis but she reports that this is currently stable but given new paresthesias prompted ED evaluation to be cautious. In the ED she does note clinical improvement since initial calcium supplementation with now only mild tingling in her hands but no further spasms in her leg. She does report chronic history of electrolyte disturbances which include low calcium. She is following closely at [facility] and has specialist for her deficiencies with her malabsorption disease and underlying common variable immunodeficiency. Workup in the ED included T96.6, heart rate 95, BP 185/85, respiratory rate 26, 99% on room air with most recent repeat vitals heart rate 74, BP 108/92, respiratory rate 16, 96% on room air, CBC with WC 7.7, hemoglobin 17.2, MCV 94.1, platelet 466 without marked shift, CMP with potassium 3.2, BUN/creatinine 21/0.64, glucose 115, calcium 6.1, total bilirubin 0.10, hepatic profile unremarkable otherwise, EKG with SR without acute evidence of ischemia. In the ED patient ministered calcium chloride 1 g IV push x 1 as well as maintenance IV fluids. [facility] Medical History CVID (common variable immunodeficiency) Diabetes Bowel obstruction CVID (common variable immunodeficiency) Ascites Liver disease Malabsorption due to intolerance, not elsewhere classified Abdominal pain Diarrhea Protein deficiency Borderline diabetes Home Medications ?Medication ?Instructions ?Recorded ?Last Taken ?Type hyoscyamine sulfate 0.125 mg 0.125 mg PO TID PRN abdomial pin 01/17/21 05/20/22 Rx tablet (Levsin) #30 tabs furosemide 40 mg tablet 40 mg PO DAILY FLUID 05/20/22 05/19/22 History sertraline 50 mg tablet 50 mg PO DAILY MOOD/ANXIETY 05/20/22 05/19/22 History cholecalciferol (vitamin D3) 1,250 125 mcg PO QWEEK 08/28/23 Unknown History mcg (50,000 unit) tablet copper gluconate 2 mg capsule 2 mg PO DAILY 08/28/23 Unknown History cyanocobalamin (vitamin B-12) 1,000 mcg PO DAILY 08/28/23 Unknown History 1,000 mcg capsule diphenoxylate-atropine 2.5 2 tab PO Q6H 08/28/23 Unknown History mg-0.025 mg tablet empagliflozin 10 mg tablet 10 mg PO QDAY 08/28/23 Unknown History (Jardiance) epinephrine 0.3 mg/0.3 mL 0.3 mg IM 08/28/23 Unknown History injection, auto-injector ergocalciferol (vitamin D2) 1,250 1,250 mcg PO QWEEK 08/28/23 Unknown History mcg (50,000 unit) capsule human serum albumin diluent 0.03 % ml .Route 08/28/23 Unknown History injection solution immune globulin (human) (IgG) 10 g .Route 08/28/23 Unknown History gram intravenous solution levonorgestrel 21 mcg/24 hr (up to 1 device intrauterine ONCE 08/28/23 Unknown History 8 years) 52 mg intrauterine device (Mirena) magnesium L-lactate 84 mg 84 mg PO TID 08/28/23 Unknown History tablet,extended release meloxicam 7.5 mg tablet 7.5 mg PO DAILY PRN joint pain 08/28/23 Unknown History multivitamin 1 tab PO DAILY 08/28/23 Unknown History potassium chloride 20 mEq 20 meq PO BID 08/28/23 Unknown History tablet,extended release sulfamethoxazole 200 ml PO .3x/week infection prevention 08/28/23 Unknown History mg-trimethoprim 40 mg/5 mL oral suspension vitamin B complex 1 cap PO DAILY 08/28/23 Unknown History ondansetron HCl 4 mg tablet 4 mg PO Q8H PRN PRN nausea/vomiting 11/18/23 Unknown History Allergy/AdvReac Type Severity Reaction Status Date / Time adhesive tape Allergy Swelling Verified 11/18/23 20:34 metformin Allergy Diarrhea Verified 11/18/23 20:34 acetaminophen (From Percocet) AdvReac Angioedema Verified 11/18/23 20:34 guaifenesin (From Mucinex) AdvReac Other Verified 11/18/23 20:34 hydrocodone AdvReac Angioedema Verified 11/18/23 20:34 oxycodone AdvReac Angioedema Verified 11/18/23 20:34 Family History Father Diabetes Mother Diabetes Surgical History H/O neck surgery H/O section Social History household members: spouse number of children: 4 current occupation: [employer] Smoking Status: Never smoker alcohol intake: never substance use type: does not use seatbelt use: always do you feel safe at home: Yes 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 HEENT: Eyes: No visual loss, blurred vision, double vision or yellow sclerae. Ears, Nose, Throat: No hearing loss, sneezing, congestion, runny nose or sore throat. SKIN: No rash or itching, lesions, wounds except + occasional staged ecchymoses, abrasion. CARDIOVASCULAR: No chest pain, chest pressure or chest discomfort, palpitations, edema, orthopnea, syncopal events. RESPIRATORY: No shortness of breath, cough or sputum, wheezing, hemoptysis. GASTROINTESTINAL: + Chronic diarrhea, abdominal discomfort, occasional bouts of nausea/emesis unchanged from her baseline. No anorexia, melena, BRBPR. GENITOURINARY: No dysuria, frequency, urgency or retention. NEUROLOGICAL: + Bilateral hand distal tips of the fingers paresthesias, leg spasms. No headache, dizziness, syncope, paralysis, ataxia, numbness or tingling in the extremities, focal weakness, change in bowel or bladder control, seizure. MUSCULOSKELETAL: + muscle, back pain, joint pain or stiffness. HEMATOLOGIC: No anemia, bleeding or bruising. LYMPHATICS: No enlarged nodes. No history of splenectomy. PSYCHIATRIC: + History of anxiety and depression. ENDOCRINOLOGIC: No reports of sweating, cold or heat intolerance. No polyuria or polydipsia. ALLERGIES: + History of angioedema. Vital Signs Vital Signs Vital Signs: 11/18/23 20:34 11/18/23 21:33 Temperature 96.6 F L Temperature Source Temporal Pulse Rate 95 74 Respiratory Rate 26 H 16 Blood Pressure 185/85 H 108/92 H Blood Pressure Mean 118 97 Pulse Ox 99 96 Oxygen Delivery Method Room Air Room Air Weight Weight: 104 lb Body Mass Index (BMI) 21.7 Physical Exam Narrative Physical Examination: General: Awake, alert, oriented x 3 and cooperative, seated upright in the ED bed, fatigued otherwise no acute distress, notes improved with no leg spasms now but just hand paresthesias. Skin: Normal color, normal turgor, no icterus, no cyanosis except occasional staged ecchymoses, abrasion. HEENT: AT/NC, EOMI, PERRLA, mildly dry MM, no carotid bruits or JVD noted. Lungs: CTA bilaterally, moderate effort, mild decrease BL bases, no rales, ronchi or wheezing. Heart: Regular rate and rhythm; no gallop, rub audible. Abdomen: Soft, thin habitus, NTTP, ND, mildly hyperactive BS, no appreciated HSM. Extremities: No cyanosis, no clubbing, no marked peripheral edema. Neurological: Patient awake, alert, oriented as noted, cognitive function intact; pupils equally reactive to light and accommodation, cranial nerves grossly normal, moving all 4 extremities, no focal deficits, strength mildly to moderately globally decreased secondary to acute complaints but improved, no evidence of any spasms of the legs during evaluation. Psychiatric: Affect appears fatigued otherwise normal, no acute evidence of depressive or anxiety feelings but does have underlying history. Results Lab / Micro Data 11/18/23 20:45 11/18/23 20:45 Labs: Laboratory Results - last 24 hr 11/18/23 20:45: WBC 7.7, RBC 5.25, Hgb 17.2 H, Hct 49.4 H, MCV 94.1, MCH 32.8 H, MCHC 34.8, RDW Std Deviation 41.9, RDW Coeff of Miguel 12.1, Plt Count 466 H, MPV 9.8, Immature Gran % (Auto) 0.300, Neut % (Auto) 70.8 H, Lymph % (Auto) 13.8 L, [place] % (Auto) 9.8, Eos % (Auto) 4.9, Baso % (Auto) 0.4, Absolute Neuts (auto) 5.5, Absolute Lymphs (auto) 1.06, Nucleated RBC % 0, Sodium 139, Potassium 3.2 L , Chloride 105, Carbon Dioxide 26.0, Anion Gap 8, BUN 21 H, Creatinine 0.64, Estim Creat Clear Calc 88.13, Est GFR (MDRD) Af Amer 136, Est GFR (MDRD) Non-Af 112, BUN/Creatinine Ratio 32.9 H, Glucose 115 H, Calcium 6.1 L*, Total Bilirubin 0.10 L, AST 26, ALT 34, Alkaline Phosphatase 83, Total Protein 4.6 L, Albumin 2.0 L, Globulin 2.6, Albumin/Globulin Ratio 0.8 L Assessment & Plan Assessment/Plan (1) Hypocalcemia: PLAN: Plan The patient is a 37 y/o F w/ PMHx: CVID w/ ongoing IV IG therapies, Malabsorption disease w/ protein deficiency/liver disease, Chronic abdominal pain, Anxiety and Depression, HTN, NIDDM who presents to the [facility] [place] ED on 11/18/23 secondary to paresthesias in her hands with symptoms starting approximate hour prior to arrival as well as right lower extremity intermittent twitching with chronic issues with mild abdominal discomfort and occasional nausea and emesis but she reports that this is currently stable but given new paresthesias prompted ED evaluation to be cautious. #1. Acute UE Hand Paresthesias and LE spasms suspected secondary to Acute on Chronic Hypocalcemia: Admission calcium 6.1 however corrected appears 8.1 this not a significant but in the ED patient improved following IV push of calcium per ED physician report. Patient confirms improvement with now only mild hand paresthesias. She is following closely with physicians at [facility] and they are aware of her electrolyte abnormalities with her malabsorption disease however, to be cautious given this level is lower than previously even in the corrected format will admit to medical surgical telemetry, maintain on monitor, will plan an additional 1 g calcium administration x 1, will obtain ionized calcium, obtain vitamin D level (25-(OH)D, 1,25-(OH)2D), PTH, Mag, Phos, UCa levels to further assess. #2. Hypokalemia: Admission K+ 3.2, magnesium level 1.8, supplementation given, repeat level in AM. #3. CVID: Patient w/ ongoing IV IG therapies, encourage continued aggressive outpatient follow-up. #4. Malabsorption disease w/ protein deficiency/liver disease with associated chronic abdominal pain: Patient with routine albumin injections per her report, following closely with [facility], encourage continued early follow-up and labs as potentially may need more frequent infusions of various electrolytes and albumin, nutrition already consulted as noted, continue antidiarrheal regimen as previously explained and as needed Levsin. #5. Hypertension: Continue home regimen including Lasix which primarily is used for edema/hypertension combination as ideally alternate regimen given electrolyte disturbance history would be beneficial, PRN hydralazine. #6. NIDDM: Hold oral home regimen, ADA diet, accu checks w/ ISS. #7. Anxiety and Depression: We will continue patient home sertraline regimen, low-dose this if necessary and symptomatic certainly could increase, encourage continued outpatient follow-up and assessment especially given significant other comorbidities which would add to anxiety and depression. #8. Severe protein calorie malnutrition: Although BMI 21.7 patient habitus significantly thin, evidence of muscle wasting and fat loss, nutrition consulted for recommendations. #9. Low risk for type of admission, encourage ambulation. Charges/Coding Visit Charges Inpatient E&M: 87278 Init Hosp L2
[2023-11-18 22:20] LABS: Magnesium 1.8 mg/dL (1.6-2.6)
[2023-11-18 22:41] VITALS: BP 121/96; PULSE 75; RESP 15; TEMP 36.3; O2SAT 96
[2023-11-18 23:00] VITALS: BP 134/71; PULSE 68; RESP 18; O2SAT 95
[2023-11-18 23:21] VITALS: BMI 21.7
[2023-11-18 23:45] VITALS: BP 128/79; PULSE 74; RESP 16; TEMP 36.7; O2SAT 98
[2023-11-19] MEDS: Calcium Gluconate IV 1 GM in 0.9% Normal Saline (100mL Bag) 100 ML IV (00:32)
[2023-11-19] MEDS: Diphenoxylate/Atrop 1 Tablet 2 TABLET PO ×3 (00:49→11:34)
[2023-11-19] MEDS: Sertraline 50 MG Tablet PO (00:54)
[2023-11-19] MEDS: Potassium Chloride 10mEq/100mL 10 MEQ/100 ML IV.SOLN. 100 MEQ IV BOLUS (01:43)
[2023-11-19 01:53] LABS: Calcium, Urine (Random) 9.8 mg/dL (Not Estab.)
[2023-11-19] MEDS: Ondansetron 4 MG/2 ML Vial IV (02:29)
[2023-11-19] MEDS: Potassium Chloride Oral Tablet 20 MEQ 40 MEQ PO ×2 (04:34→11:35)
[2023-11-19 05:58] LABS: Absolute Lymphocyte Count 0.35 X10^3/uL (0.83-4.51); Absolute Neutrophil Count 7.8 X10^3/uL (2.0-7.7); Basophil# 0.03 X10^3/uL; Basophil% 0.3 % (0-1); Eosinophil# 0.12 X10^3/uL; Eosinophils% 1.4 % (0-5); Hematocrit 43.3 % (37-47); Lymphocyte # 0.35 X10^3/ul (0.83-4.51); Mean Corp Hgb Conc 34.6 g/dL (32-36); Mean Corpuscular Hgb 32.8 pg (27.0-32.0); Mean Corpuscular Volume 94.7 fL (81-99); Mean Platelet Vol. 9.5 fl (6.2-12.0); Monocyte# 0.43 X10^3/uL; Monocyte% 4.9 % (0-10); NRBC Flagged by Analyzer 0 % (0-5); Neutrophil # 7.76 X10^3/uL (2.7-7.7); Neutrophil % 89.2 % (47-70); POSITIVE DIFFERENTIAL YES; Platelet Count 355 K/mm3 (150-450); RBC Distribution Width CV 12.1 % (11.6-14.6); RBC Distribution Width SD 42.2 fl (35.1-43.9); Red Blood Count 4.57 M/mm3 (4.2-5.4); White Blood Count 8.7 K/mm3 (4.4-11.0)
[2023-11-19 06:10] VITALS: BP 115/70; PULSE 68; RESP 16; TEMP 36.5; O2SAT 97
[2023-11-19 06:13] LABS: Ionized Calcium 4.29 mg/dL (4.36-5.20)
[2023-11-19 06:43] LABS: ALB/GLOB Ratio 0.8 RATIO (0.9-2.4); AST(SGOT) 20 U/L (15-37); Alanine Aminotransfer ALT/SGPT 23 U/L (13-56); Albumin, Serum 1.7 g/dL (3.2-5.0); Alkaline Phosphatase 67 U/L (45-117); Anion Gap 5 (5-15); BUN 18 mg/dL (7-18); Calcium,Total 6.7 mg/dL (8.5-10.1); Chloride 112 mmol/L (98-107); Creatinine, Serum 0.45 mg/dL (0.55-1.02); EST Glomerular Filtration Rate 168 mL/min (>60); Est Glom Filt Rate - Afr Amer 203 mL/min (>60); Estimated Creatinine Clearance 125.34 ml/min; Globulin 2.2 g/dL (2.2-4.2); Glucose 136 mg/dL (74-106); Phosphorus 2.7 mg/dL (2.5-4.9); Potassium 3.2 mmol/L (3.5-5.1); Protein, Total 3.9 g/dL (6.4-8.2); Sodium Level 138 mmol/L (136-145)
[2023-11-19 06:48] LABS: Bedside Glucose 123 mg/dL (74-106)
[2023-11-19 07:48] VITALS: O2SAT 96
[2023-11-19 11:24] VITALS: BP 109/61; PULSE 71; RESP 16; TEMP 36.7; O2SAT 95
[2023-11-19] MEDS: Potassium Chloride Oral Tablet 20 MEQ PO (11:28)
[2023-11-19] MEDS: Furosemide 40 MG Tablet PO (11:28)
--- NOTE | 2023-11-19 12:16 | PCM.DC.SUM ---
Providers Date of Admission: 11/18/23 Date of Discharge: 11/19/23 Primary Care Physician: Dr. Henry Wise MD Reason For Visit: HYPOCALCIUM, HYPOKALEMIA Diagnosis Discharge Diagnosis (1) Hypocalcemia: Status: Acute Code(s): E83.51 - Hypocalcemia Medications at Discharge Home Medications hyoscyamine sulfate 0.125 mg tablet (Levsin) 0.125 mg PO TID PRN abdomial pin #30 tabs 01/17/21 furosemide 40 mg tablet 40 mg PO DAILY FLUID 05/20/22 sertraline 50 mg tablet 50 mg PO DAILY MOOD/ANXIETY 05/20/22 cholecalciferol (vitamin D3) 1,250 mcg (50,000 unit) tablet 125 mcg PO QWEEK vitamin 08/28/23 copper gluconate 2 mg capsule 2 mg PO DAILY supplement 08/28/23 cyanocobalamin (vitamin B-12) 1,000 mcg capsule 1,000 mcg PO DAILY vitamin 08/28/23 diphenoxylate-atropine 2.5 mg-0.025 mg tablet 2 tab PO Q6H diarrhea 08/28/23 empagliflozin 10 mg tablet (Jardiance) 10 mg PO QDAY diabetes 08/28/23 epinephrine 0.3 mg/0.3 mL injection, auto-injector 0.3 mg IM PRN allergies 08/28/23 ergocalciferol (vitamin D2) 1,250 mcg (50,000 unit) capsule 1,250 mcg PO QWEEK vitamin 08/28/23 human serum albumin diluent 0.03 % injection solution ml .Route 08/28/23 immune globulin (human) (IgG) 10 gram intravenous solution g .Route 08/28/23 levonorgestrel 21 mcg/24 hr (up to 8 years) 52 mg intrauterine device (Mirena) 1 device intrauterine ONCE 08/28/23 magnesium L-lactate 84 mg tablet,extended release 84 mg PO TID supplement 08/28/23 meloxicam 7.5 mg tablet 7.5 mg PO DAILY PRN joint pain 08/28/23 multivitamin 1 tab PO DAILY vitamin 08/28/23 potassium chloride 20 mEq tablet,extended release 20 meq PO BID supplement 08/28/23 vitamin B complex 1 cap PO DAILY vitamin 08/28/23 ondansetron HCl 4 mg tablet 4 mg PO Q8H PRN PRN nausea/vomiting 11/18/23 sulfamethoxazole 800 mg-trimethoprim 160 mg tablet 1 tab PO 11/18/23 Hospital Course Operations None Procedures None Summary of Care Provided Minutes Spent on Discharge: 35 Hospital Course: Patient is a 37-year-old female who presented to [facility] ED on 11/18/2023 with worsening hand paresthesias and leg cramps. 1. Acute hand paresthesias and lower extremity spasms suspected due to acute on chronic hypocalcemia ? Admission calcium 6.1, corrected to 8.1 for low albumin which is within normal range but patient reported symptomatic improvement in the ED following IV calcium replacement. Has known electrolyte abnormalities due to malabsorption disease, follows with [facility] for this. Calcium improved on labs on hospital day 2 and symptoms resolved, stable for discharge home. Continue home calcium supplement. 2. Mild hypokalemia ? Potassium 3.2 on admit, magnesium 1.8. Improved with supplementation. Chronic medical conditions: ? CVID: On scheduled outpatient IVIG infusions. Continue outpatient follow-up. ? Malabsorption disease with protein deficiency/liver disease with associated chronic abdominal pain: Stable. Continue outpatient follow-up. ? Hypertension: Stable. Continue home meds. ? Type 2 diabetes mellitus: Stable. Continue home Jardiance. ? Anxiety/depression: Stable. Continue home sertraline. ? Chronic severe protein calorie malnutrition: Continue outpatient follow-up. Total clinical time spent by myself addressing the patient's medical issues, reviewing all the data, and collaborating with patient's care team: 35 minutes. Physical Exam Narrative Physical Examination: General: Awake, alert, oriented x 3 and cooperative, seated upright in the ED bed, fatigued otherwise no acute distress, notes improved from admission. Skin: Normal color, normal turgor, no icterus, no cyanosis except occasional staged ecchymoses, abrasion. HEENT: AT/NC, EOMI, PERRLA, mildly dry MM, no carotid bruits or JVD noted. Lungs: CTA bilaterally, moderate effort, mild decrease BL bases, no rales, ronchi or wheezing. Heart: Regular rate and rhythm; no gallop, rub audible. Abdomen: Soft, thin habitus, NTTP, ND, mildly hyperactive BS, no appreciated HSM. Extremities: No cyanosis, no clubbing, no marked peripheral edema. Neurological: Patient awake, alert, oriented as noted, cognitive function intact; pupils equally reactive to light and accommodation, cranial nerves grossly normal, moving all 4 extremities, no focal deficits, no strength abnormalities. Psychiatric: Affect appears fatigued otherwise normal, no acute evidence of depressive or anxiety feelings but does have underlying history. Weight / BMI Weight Weight: 47.174 kg Body Mass Index (BMI) 21.7 ABG / Lab / Microbiology Data 11/19/23 05:38 11/19/23 05:38 Laboratory: Laboratory Results - last 24 hr 11/18/23 10:41: Ur Random Calcium 9.8 11/18/23 20:45: WBC 7.7, RBC 5.25, Hgb 17.2 H, Hct 49.4 H, MCV 94.1, MCH 32.8 H, MCHC 34.8, RDW Std Deviation 41.9, RDW Coeff of Miguel 12.1, Plt Count 466 H, MPV 9.8, Immature Gran % (Auto) 0.300, Neut % (Auto) 70.8 H, Lymph % (Auto) 13.8 L, [place] % (Auto) 9.8, Eos % (Auto) 4.9, Baso % (Auto) 0.4, Absolute Neuts (auto) 5.5, Absolute Lymphs (auto) 1.06, Nucleated RBC % 0, Sodium 139, Potassium 3.2 L, Chloride 105, Carbon Dioxide 26.0, Anion Gap 8, BUN 21 H, Creatinine 0.64, Estim Creat Clear Calc 88.13, Est GFR (MDRD) Af Amer 136, Est GFR (MDRD) Non-Af 112, BUN/Creatinine Ratio 32.9 H, Glucose 115 H, Calcium 6.1 L*, Magnesium 1.8, Total Bilirubin 0.10 L, AST 26, ALT 34, Alkaline Phosphatase 83, Total Protein 4.6 L, Albumin 2.0 L, Globulin 2.6, Albumin/Globulin Ratio 0.8 L 11/19/23 05:38: WBC 8.7, RBC 4.57, Hgb 15.0, Hct 43.3, MCV 94.7, MCH 32.8 H, MCHC 34.6, RDW Std Deviation 42.2, RDW Coeff of Miguel 12.1, Plt Count 355, MPV 9.5, Immature Gran % (Auto) 0.200, Neut % (Auto) 89.2 H, Lymph % (Auto) 4.0 L, [place] % (Auto) 4.9, Eos % (Auto) 1.4, Baso % (Auto) 0.3, Absolute Neuts (auto) 7.8 H, Absolute Lymphs (auto) 0.35 L, Nucleated RBC % 0, Sodium 138, Potassium 3.2 L, Chloride 112 H, Carbon Dioxide 21.0, Anion Gap 5, BUN 18, Creatinine 0.45 L, Estim Creat Clear Calc 125.34, Est GFR (MDRD) Af Amer 203, Est GFR (MDRD) Non-Af 168, BUN/Creatinine Ratio 40.0 H, Glucose 136 H, Calcium 6.7 L, Phosphorus 2.7, Total Bilirubin 0.20, AST 20, ALT 23, Alkaline Phosphatase 67, Total Protein 3.9 L, Albumin 1.7 L, Globulin 2.2, Albumin/Globulin Ratio 0.8 L 11/19/23 06:08: Ionized Calcium 4.29 L 11/19/23 06:17: POC Glucose 123 H Meaningful Use Info Meaningful Use Meaningful Use Diagnoses (Choose all that apply): None applicable Ischemic Stroke Statin Dosing Therapy Reference: STATIN DOSE THERAPY REFERENCE: * Patients > 75 years receive moderate or high dose statin therapy. * Patients 75 years or YOUNGER should receive HIGH intensity statin dose unless contraindicated. You will be required to document reason for non-treatment if statin daily dose does not meet guidelines. HIGH DOSE STATIN THERAPY DAILY Atorvastatin > than or = to 40 mg Rosuvastatin > than or = to 20 mg Amlodipine + Atorvastatin > than or = to 2.5/40 mg Ezetimibe + Simvastatin 10/80 mg Simvastatin 80mg Discharge Plan Admission Admit Date/Time: 11/18/23 22:21 Primary Reason for Your Visit: Hand numbness/tingling and leg spasms Attending Provider: Angel Garcia Primary Care Provider: Henry Wise Consulting Providers: Sindhu Walker Discharge Orders/Prescriptions Prescriptions: Continued copper gluconate 2 mg capsule 2 mg PO DAILY cholecalciferol (vitamin D3) 1,250 mcg (50,000 unit) tablet 125 mcg PO QWEEK ergocalciferol (vitamin D2) 1,250 mcg (50,000 unit) capsule 1,250 mcg PO QWEEK diphenoxylate-atropine 2.5-0.025 mg tablet 2 tab PO Q6H Jardiance 10 mg tablet 10 mg PO QDAY magnesium L-lactate 84 mg tablet extended release 84 mg PO TID immune globulin (human) (IgG) 10 gram recon soln .Route Rx Instructions: IV every 30 days 100ml epinephrine 0.3 mg/0.3 mL auto-injector 0.3 mg IM PRN Rx Instructions: 0.3 mg intramuscularly; vitamin B complex Capsule 1 cap PO DAILY multivitamin Tablet 1 tab PO DAILY cyanocobalamin (vitamin B-12) 1,000 mcg capsule 1,000 mcg PO DAILY potassium chloride 20 mEq tablet extended release 20 meq PO BID Mirena 21 mcg/24 hours (8 yrs) 52 mg intrauterine device 1 device intrauterine ONCE Rx Instructions: as a single dose human serum albumin diluent 0.03 % solution .Route Rx Instructions: IV fusion- monthly- dose not sure meloxicam 7.5 mg tablet 7.5 mg PO DAILY PRN (Reason: joint pain) hyoscyamine sulfate [Levsin] 0.125 mg tablet 0.125 mg PO TID PRN (Reason: abdomial pin) Qty: 30 0RF furosemide 40 mg tablet 40 mg PO DAILY sertraline 50 mg tablet 50 mg PO DAILY ondansetron HCl 4 mg tablet 4 mg PO Q8H PRN PRN (Reason: nausea/vomiting) sulfamethoxazole-trimethoprim 800-160 mg tablet 1 tab PO Discontinued sulfamethoxazole-trimethoprim 200-40 mg/5 mL suspension PO .3x/week Referrals / Follow Up: Henry Wise MD [Primary Care Provider] - Disposition Disposition (needs filled in before D/C Order can be placed): Home, Self Care Charges/Coding Visit Charges Inpatient E&M: 22564 Disch Hosp >30min
[2023-11-19 13:42] VITALS: BP 115/66; PULSE 78; RESP 16; TEMP 36.6; O2SAT 98
[2023-11-20 07:45] LABS: PTHIN 184.2 pg/mL (18.4-80.1)
[2023-11-20 07:51] LABS: Vitamin D,25 Hydroxy 31.5 ng/mL
[2023-11-22 12:15] LABS: Vitamin D 1,25-Dihydroxy 60.8 pg/mL (24.8-81.5)
== END 2023-11-19 12:27 | disposition home or self-care (01) ==
LOC: ED 22:16 → PCU 22:59
PROVIDERS: Admitting Provider Family Medicine; Emergency Provider Emergency Medicine; PCP Family Medicine; Visit Provider Hospitalist
DX: E83.51 Hypocalcemia (principal); D83.9 Common variable immunodeficiency, unspecified; E11.9 Type 2 diabetes mellitus without complications; E87.6 Hypokalemia; K90.9 Intestinal malabsorption, unspecified; I10 Essential (primary) hypertension; Z79.84 Long term (current) use of oral hypoglycemic drugs; F32.A Depression, unspecified; K76.9 Liver disease, unspecified; F41.9 Anxiety disorder, unspecified; E43 Unspecified severe protein-calorie malnutrition; Z68.21 Body mass index [BMI] 21.0-21.9, adult; Z79.899 Other long term (current) drug therapy; R20.2 Paresthesia of skin
CPT/HCPCS: 36415; 80053; 82306; 82330; 82340; 82652; 82962; 83735; 83970; 84100; 85025; 93005; 96361; 96365; 96366; 96375; 97802; 99221; 99284; J7030; A4216; G0378; J0612; J2405

== ENCOUNTER 2023-11-21 17:05 | Emergency (ER) | payer SELFPAY ==
[2023-11-21 17:06] VITALS: BP 141/95; PULSE 96; RESP 14; TEMP 36.8; O2SAT 95; BMI 20.7
[2023-11-21 17:48] LABS: Absolute Lymphocyte Count 0.49 X10^3/uL (0.83-4.51); Absolute Neutrophil Count 6.1 X10^3/uL (2.0-7.7); Basophil# 0.03 X10^3/uL; Basophil% 0.4 % (0-1); Eosinophil# 0.05 X10^3/uL; Eosinophils% 0.7 % (0-5); Hematocrit 48.5 % (37-47); Hemoglobin 17.3 g/dL (12.0-15.0); Lymphocyte # 0.49 X10^3/ul (0.83-4.51); Lymphocyte % 6.7 % (19-41); Mean Corp Hgb Conc 35.7 g/dL (32-36); Mean Corpuscular Hgb 32.6 pg (27.0-32.0); Mean Corpuscular Volume 91.3 fL (81-99); Mean Platelet Vol. 9.5 fl (6.2-12.0); Monocyte# 0.61 X10^3/uL; Monocyte% 8.3 % (0-10); NRBC Flagged by Analyzer 0 % (0-5); Neutrophil # 6.12 X10^3/uL (2.7-7.7); Neutrophil % 83.5 % (47-70); POSITIVE DIFFERENTIAL YES; Platelet Count 447 K/mm3 (150-450); Red Blood Count 5.31 M/mm3 (4.2-5.4); White Blood Count 7.3 K/mm3 (4.4-11.0)
[2023-11-21 18:11] LABS: Internal QC Validated? YES +Cl - CLEAR BKGD; Pregnancy, Serum, hCG Quali. NEGATIVE Negative
[2023-11-21 18:20] LABS: ALB/GLOB Ratio 0.7 RATIO (0.9-2.4); AST(SGOT) 22 U/L (15-37); Alanine Aminotransfer ALT/SGPT 27 U/L (13-56); Alkaline Phosphatase 76 U/L (45-117); Anion Gap 6 (5-15); BUN 14 mg/dL (7-18); BUN/Creat Ratio 18.4 RATIO (10-20); Calcium,Total 7.9 mg/dL (8.5-10.1); Chloride 111 mmol/L (98-107); Creatinine, Serum 0.76 mg/dL (0.55-1.02); EST Glomerular Filtration Rate 92 mL/min (>60); Est Glom Filt Rate - Afr Amer 111 mL/min (>60); Estimated Creatinine Clearance 73.24 ml/min; Globulin 2.8 g/dL (2.2-4.2); Glucose 154 mg/dL (74-106); Potassium 2.9 mmol/L (3.5-5.1); Protein, Total 4.8 g/dL (6.4-8.2); Sodium Level 139 mmol/L (136-145)
[2023-11-21 18:27] LABS: Bacteria 0 SEEN /hpf (None Seen); Mucous, Urine 0 SEEN /hpf (<or=2+); Red Blood Cells-Urine 0 SEEN /hpf (0-5); White Blood Cells 0 SEEN /hpf (0-5)
[2023-11-21 18:29] LABS: Color, Urine Yellow (Yellow); Glucose, Dipstick 1000 mg/dl (Normal); Ketone-Dipstick Negative (Negative); Leukocyte Esterase-Dipstick Negative /ul (Negative); Nitrite-Dipstick Negative (Negative); Occult Blood-Urine Negative /ul (Negative); Protein-Dipstick 15 mg/dl (Negative); Specific Gravity, Urine 1.015 (1.002-1.030); Urine Bilirubin Dipstick Negative (Negative); Urine Clarity Clear (Clear); Urine Urobilinogen Normal (Normal)
[2023-11-21 18:35] LABS: Squamous Epithelial Cells - UA 0-5 SEEN /hpf (5-10)
[2023-11-21 19:06] VITALS: BP 126/73; PULSE 79; RESP 18; O2SAT 94
[2023-11-21 19:29] LABS: Magnesium 1.5 mg/dL (1.6-2.6)
[2023-11-21] MEDS: proMETHazine 25 MG/ML Syringe 12.5 MG IM (19:54)
[2023-11-21] MEDS: Magnesium Sulfate 2 GM in Dextrose 5%-Water (100mL Bag) 100 ML IV (20:30)
[2023-11-21 21:00] VITALS: BP 126/73; PULSE 70; RESP 18; O2SAT 96
[2023-11-21 21:20] VITALS: BP 128/72; PULSE 72; RESP 18; TEMP 36.2; O2SAT 93
--- NOTE | 2023-11-21 21:34 | ED.VIS.GI ---
HPI HPI - GI History of Present Illness Chief Complaint: Nausea/Vomiting/Diarrhea Narrative Narrative: 37-year-old female with past medical history of CVID. She gets IVIG through [facility]. She has malabsorption disease and chronic abdominal pain and diarrhea. Patient recently admitted for hypocalcemia and hypokalemia and was discharged home. Today she states she is having increased diarrhea and nausea and vomiting. She does not usually vomit. Denies fever or chills. Patient states that they called [facility] and they wanted them to come to the emergency room at [facility] but they did not want to drive that far. [facility] Medical History CVID (common variable immunodeficiency) Diabetes Bowel obstruction CVID (common variable immunodeficiency) Ascites Liver disease Malabsorption due to intolerance, not elsewhere classified Abdominal pain Diarrhea Protein deficiency Borderline diabetes Home Medications ?Medication ?Instructions ?Recorded ?Last Taken ?Type hyoscyamine sulfate 0.125 mg 0.125 mg PO TID PRN abdomial pin 01/17/21 05/20/22 Rx tablet (Levsin) #30 tabs furosemide 40 mg tablet 40 mg PO DAILY FLUID 05/20/22 05/19/22 History sertraline 50 mg tablet 50 mg PO DAILY MOOD/ANXIETY 05/20/22 05/19/22 History cholecalciferol (vitamin D3) 1,250 125 mcg PO QWEEK vitamin 08/28/23 Unknown History mcg (50,000 unit) tablet copper gluconate 2 mg capsule 2 mg PO DAILY supplement 08/28/23 Unknown History cyanocobalamin (vitamin B-12) 1,000 mcg PO DAILY vitamin 08/28/23 Unknown History 1,000 mcg capsule diphenoxylate-atropine 2.5 2 tab PO Q6H diarrhea 08/28/23 Unknown History mg-0.025 mg tablet empagliflozin 10 mg tablet 10 mg PO QDAY diabetes 08/28/23 Unknown History (Jardiance) epinephrine 0.3 mg/0.3 mL 0.3 mg IM PRN allergies 08/28/23 Unknown History injection, auto-injector ergocalciferol (vitamin D2) 1,250 1,250 mcg PO QWEEK vitamin 08/28/23 Unknown History mcg (50,000 unit) capsule human serum albumin diluent 0.03 % ml .Route 08/28/23 Unknown History injection solution immune globulin (human) (IgG) 10 g .Route 08/28/23 Unknown History gram intravenous solution levonorgestrel 21 mcg/24 hr (up to 1 device intrauterine ONCE 08/28/23 Unknown History 8 years) 52 mg intrauterine device (Mirena) magnesium L-lactate 84 mg 84 mg PO TID supplement 08/28/23 Unknown History tablet,extended release meloxicam 7.5 mg tablet 7.5 mg PO DAILY PRN joint pain 08/28/23 Unknown History multivitamin 1 tab PO DAILY vitamin 08/28/23 Unknown History potassium chloride 20 mEq 20 meq PO BID supplement 08/28/23 Unknown History tablet,extended release vitamin B complex 1 cap PO DAILY vitamin 08/28/23 Unknown History ondansetron HCl 4 mg tablet 4 mg PO Q8H PRN PRN nausea/vomiting 11/18/23 Unknown History sulfamethoxazole 800 1 tab PO .QOD 11/18/23 Unknown History mg-trimethoprim 160 mg tablet Allergy/AdvReac Type Severity Reaction Status Date / Time adhesive tape Allergy Swelling Verified 11/21/23 17:09 metformin Allergy Diarrhea Verified 11/21/23 17:09 acetaminophen (From Percocet) AdvReac Angioedema Verified 11/21/23 17:09 guaifenesin (From Mucinex) AdvReac Other Verified 11/21/23 17:09 hydrocodone AdvReac Angioedema Verified 11/21/23 17:09 oxycodone AdvReac Angioedema Verified 11/21/23 17:09 Family History Father Diabetes Mother Diabetes Surgical History H/O neck surgery H/O section Social History household members: spouse number of children: 4 current occupation: [employer] Smoking Status: Never smoker alcohol intake: never substance use type: does not use seatbelt use: always do you feel safe at home: Yes 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 ROS ED Constitutional Constitutional ED: Denies chills, fever(s) or sweats Eyes Eyes: Denies blurry vision or change in vision ENT ENT ED: Denies ear pain or sore throat Cardiovascular Cardiovascular: Denies chest pain, palpitations or racing heartbeat Respiratory/Chest Respiratory/Chest: Denies cough, dyspnea or sputum Gastrointestinal Gastrointestinal: Reports abdominal pain, diarrhea, nausea and vomiting; Denies constipation Genitourinary Genitourinary ED: Denies dysuria, hematuria or urinary frequency Musculoskeletal Musculoskeletal: Denies arthralgias, myalgias or neck pain Integumentary Denies abscess, Abrasions or rash Neurologic Neurologic: Denies headache(s), paresthesias or weakness Psychiatric Psychiatric: Denies anxiety, depression, suicidal ideation or suicidal thoughts Endocrine Endocrinology: Denies polydipsia or polyuria EXAM Physical Exam Const Vital Signs: 11/21/23 17:06 11/21/23 19:06 11/21/23 21:00 Temperature 98.3 F Temperature Source Temporal Pulse Rate 96 79 70 Respiratory Rate 14 18 18 Blood Pressure 141/95 H 126/73 H 126/73 H Blood Pressure Mean 110 90 90 Pulse Ox 95 94 96 Oxygen Delivery Method Room Air Room Air Room Air 11/21/23 21:20 Temperature 97.1 F L Temperature Source Pulse Rate 72 Respiratory Rate 18 Blood Pressure 128/72 H Blood Pressure Mean 90 Pulse Ox 93 Oxygen Delivery Method Positive well nourished General Appearance ED: pallor HEENT Reports moist mucous membranes Eyes PERRL and EOMs intact bilaterally Resp normal respiratory effort Cardio regular rate GI non-tender Neuro CN's II-XII intact bilaterally, moves all extremities and no sensory deficits noted Sensorium / Orientation: alert Psych mental status grossly normal and thought process normal Skin General Skin Exam: jaundice and pallor MDM MDM MDM Narrative Medical decision making narrative: Patient presenting with nausea/vomiting. She has chronic abdominal pain. No fevers. Benign exam. Patient was given a dose of IM Phenergan help with her vomiting because she states that her home Zofran was not working. Differential includes dehydration, anemia, electro normalities, , UTI CBC will be obtained to assess white blood cell count, hemoglobin, platelets. CMP to assess renal function, electrolytes, liver function, glucose. Lipase to assess for pancreatitis. Urinalysis to assess for UTI. CBC shows normal white blood cell count of 7.3. Hemoglobin 17.3. Platelets are normal at 447. Renal function within normal limits. LFTs are normal. Calcium when corrected is not low. Urinalysis negative for infection. hCG is negative. Patient feeling improved after the Phenergan. She was given 2 g of IV magnesium since her magnesium 0.5. We discussed that since she is tolerating p.o. we could replete her potassium orally and give her 40 mill equivalents of p.o. potassium. She was amenable to this because she did not want to the IV because it burned very badly last time. She did request that I reach out to [facility] and discussed the labs with one of her docs. I spoke with the fellow on-call for Dr. Marcus. We went over her lab work. He agrees with my assessment. He will password on the Dr. Marcus. Patient is concerned with the level of diarrhea that she is having. She states that she is supposed to get an infusion of albumin once a month but not to be able to make her appointment this next week. She request that I give her some albumin because it helps with her diarrhea. I did give her a dose of albumin 25 g. Impression: 1. Chronic abdominal pain 2. Nausea/vomiting 3. Diarrhea 4. Hypokalemia 5. Hypomagnesemia Lab Data Attestation: I reviewed the patient's lab results. Labs: Laboratory Results - last 24 hr 11/21/23 11/21/23 17:30 18:24 WBC 7.3 RBC 5.31 Hgb 17.3 H Hct 48.5 H MCV 91.3 MCH 32.6 H MCHC 35.7 RDW Std Deviation 40.0 RDW Coeff of Miguel 12.0 Plt Count 447 MPV 9.5 Immature Gran % (Auto) 0.400 Neut % (Auto) 83.5 H Lymph % (Auto) 6.7 L [place] % (Auto) 8.3 Eos % (Auto) 0.7 Baso % (Auto) 0.4 Absolute Neuts (auto) 6.1 Absolute Lymphs (auto) 0.49 L Nucleated RBC % 0 Sodium 139 Potassium 2.9 L Chloride 111 H Carbon Dioxide 22.0 Anion Gap 6 BUN 14 Creatinine 0.76 Estim Creat Clear Calc 73.24 Est GFR (MDRD) Af Amer 111 Est GFR (MDRD) Non-Af 92 BUN/Creatinine Ratio 18.4 Glucose 154 H Calcium 7.9 L Magnesium 1.5 L Total Bilirubin 0.20 AST 22 ALT 27 Alkaline Phosphatase 76 Total Protein 4.8 L Albumin 2.0 L Globulin 2.8 Albumin/Globulin Ratio 0.7 L Serum , Qual NEGATIVE Urine Color Yellow Urine Clarity Clear Urine pH 6.0 Ur Specific [place] 1.015 Urine Protein 15 H Urine Glucose (UA) 1000 H Urine Ketones Negative Urine Occult Blood Negative Urine Nitrite Negative Urine Bilirubin Negative Urine Urobilinogen Normal Ur Leukocyte Esterase Negative Urine RBC 0 SEEN Urine WBC 0 SEEN Ur Squamous Epith Cells 0-5 SEEN Urine Bacteria 0 SEEN Urine Mucus 0 SEEN Discharge Plan Triage Chief Complaint: Nausea/Vomiting/Diarrhea ED Provider: Angel Ya Dx/Rx/DC Orders Instructions: Hypomagnesemia Dc, ED Hypokalemia, ED Potassium-Rich Foods, ED Vomit Diarrhea Nonspec Adult Prescriptions: No Action copper gluconate 2 mg capsule 2 mg PO DAILY cholecalciferol (vitamin D3) 1,250 mcg (50,000 unit) tablet 125 mcg PO QWEEK ergocalciferol (vitamin D2) 1,250 mcg (50,000 unit) capsule 1,250 mcg PO QWEEK diphenoxylate-atropine 2.5-0.025 mg tablet 2 tab PO Q6H Jardiance 10 mg tablet 10 mg PO QDAY magnesium L-lactate 84 mg tablet extended release 84 mg PO TID immune globulin (human) (IgG) 10 gram recon soln .Route Rx Instructions: IV every 30 days 100ml epinephrine 0.3 mg/0.3 mL auto-injector 0.3 mg IM PRN Rx Instructions: 0.3 mg intramuscularly; vitamin B complex Capsule 1 cap PO DAILY multivitamin Tablet 1 tab PO DAILY cyanocobalamin (vitamin B-12) 1,000 mcg capsule 1,000 mcg PO DAILY potassium chloride 20 mEq tablet extended release 20 meq PO BID Mirena 21 mcg/24 hours (8 yrs) 52 mg intrauterine device 1 device intrauterine ONCE Rx Instructions: as a single dose human serum albumin diluent 0.03 % solution .Route Patient Comments: pt supposed to get it 11/23/23 Rx Instructions: IV fusion- monthly- dose not sure meloxicam 7.5 mg tablet 7.5 mg PO DAILY PRN (Reason: joint pain) hyoscyamine sulfate [Levsin] 0.125 mg tablet 0.125 mg PO TID PRN (Reason: abdomial pin) Qty: 30 0RF furosemide 40 mg tablet 40 mg PO DAILY sertraline 50 mg tablet 50 mg PO DAILY ondansetron HCl 4 mg tablet 4 mg PO Q8H PRN PRN (Reason: nausea/vomiting) sulfamethoxazole-trimethoprim 800-160 mg tablet 1 tab PO .QOD Patient Comments: Takes [facility] preventative Primary Care Provider: Henry Wise Referrals: Henry Wise MD [Primary Care Provider] - Print Language: Armenian Disposition Disposition: Home, Self Care
[2023-11-21 23:00] VITALS: BP 116/73; PULSE 80; RESP 18; O2SAT 92
[2023-11-21] MEDS: Potassium Chloride Oral Soln 20 MEQ/15 ML UDC 40 MEQ PO (23:15)
[2023-11-21] MEDS: Albumin Human 25% (100 mL) 25 GM/100 ML BAG IV (23:38)
[2023-11-22 01:00] VITALS: BP 115/66; PULSE 86; RESP 18; TEMP 36.6; O2SAT 94
[2023-11-22 01:27] VITALS: BP 115/66; PULSE 84; RESP 18; TEMP 36.6; O2SAT 96
== END 2023-11-22 01:28 | disposition home or self-care (01) ==
PROVIDERS: Emergency Provider Student in an Organized Health Care Education/Training Program; PCP Family Medicine; Visit Provider Student in an Organized Health Care Education/Training Program
DX: R11.2 Nausea with vomiting, unspecified (principal); E11.9 Type 2 diabetes mellitus without complications; R19.7 Diarrhea, unspecified; E83.42 Hypomagnesemia; E87.6 Hypokalemia; R10.9 Unspecified abdominal pain; G89.29 Other chronic pain; Z79.84 Long term (current) use of oral hypoglycemic drugs
CPT/HCPCS: 80053; 81001; 83735; 84703; 85025; 96365; 96366; 96367; 96372; 99285; J7030; P9047

== ENCOUNTER → 2023-11-24 | Outpatient (CLI) | payer SELFPAY ==
[2023-11-24 15:42] LABS: ALB/GLOB Ratio 0.8 RATIO (0.9-2.4); AST(SGOT) 22 U/L (15-37); Alanine Aminotransfer ALT/SGPT 23 U/L (13-56); Alkaline Phosphatase 70 U/L (45-117); Anion Gap 4 (5-15); BUN 13 mg/dL (7-18); BUN/Creat Ratio 21.7 RATIO (10-20); Calcium,Total 7.3 mg/dL (8.5-10.1); Chloride 113 mmol/L (98-107); EST Glomerular Filtration Rate 121 mL/min (>60); Est Glom Filt Rate - Afr Amer 146 mL/min (>60); Globulin 2.5 g/dL (2.2-4.2); Glucose 121 mg/dL (74-106); Magnesium 1.7 mg/dL (1.6-2.6); Potassium 3.2 mmol/L (3.5-5.1); Protein, Total 4.5 g/dL (6.4-8.2); Sodium Level 142 mmol/L (136-145)
[2023-11-28 05:07] LABS: Copper, Serum or Plasma 73 ug/dL (80-158); Zinc, Plasma or Serum 65 ug/dL (44-115)
== END | disposition home or self-care (01) ==
PROVIDERS: PCP Family Medicine; Referring Provider Family Medicine; Visit Provider Family Medicine
DX: E60 Dietary zinc deficiency (principal); E56.1 Deficiency of vitamin K; E56.0 Deficiency of vitamin E; E61.0 Copper deficiency
CPT/HCPCS: 36415; 80053; 82525; 83735; 84630

== ENCOUNTER → 2023-11-29 | Outpatient (CLI) | payer OTHER, SELFPAY ==
[2023-12-02 19:07] LABS: Pancreatic Elastase, Fecal 9 (>200)
== END | disposition home or self-care (01) ==
LOC: LAB 11:55 → LABSPEC 11:58
PROVIDERS: PCP Family Medicine
DX: K90.49 Malabsorption due to intolerance, not elsewhere classified (principal); R19.7 Diarrhea, unspecified; E56.1 Deficiency of vitamin K
CPT/HCPCS: 82653; 87177; 87209; 87329; 87493; 87506

== ENCOUNTER → 2023-12-27 | Outpatient (CLI) | payer OTHER, SELFPAY ==
[2023-12-27 17:40] LABS: Vitamin D,25 Hydroxy 30.1 ng/mL
[2023-12-27 17:42] LABS: ALB/GLOB Ratio 0.6 RATIO (0.9-2.4); AST(SGOT) 31 U/L (15-37); Alanine Aminotransfer ALT/SGPT 51 U/L (13-56); Albumin, Serum 1.7 g/dL (3.2-5.0); Alkaline Phosphatase 98 U/L (45-117); Anion Gap 6 (5-15); BUN 25 mg/dL (7-18); BUN/Creat Ratio 51.7 RATIO (10-20); Calcium,Total 7.7 mg/dL (8.5-10.1); Chloride 111 mmol/L (98-107); Creatinine, Serum 0.48 mg/dL (0.55-1.02); EST Glomerular Filtration Rate 154 mL/min (>60); Est Glom Filt Rate - Afr Amer 186 mL/min (>60); Globulin 2.7 g/dL (2.2-4.2); Glucose 111 mg/dL (74-106); Magnesium 1.7 mg/dL (1.6-2.6); Potassium 3.5 mmol/L (3.5-5.1); Protein, Total 4.4 g/dL (6.4-8.2); Sodium Level 142 mmol/L (136-145)
[2024-01-03 16:10] LABS: Copper, Serum or Plasma 73 ug/dL (80-158); VITAMIN B6 6.4 ug/L (3.4-65.2); Vitamin A, Retinol 51.4 ug/dL (18.9-57.3); Zinc, Plasma or Serum 43 ug/dL (44-115)
== END | disposition home or self-care (01) ==
PROVIDERS: PCP Family Medicine; Visit Provider Family Medicine
DX: E55.9 Vitamin D deficiency, unspecified (principal); E46 Unspecified protein-calorie malnutrition; E50.9 Vitamin A deficiency, unspecified
CPT/HCPCS: 80053; 82306; 82525; 83735; 84207; 84590; 84630

== ENCOUNTER 2024-01-12 08:38 | Outpatient (CLI) | payer OTHER, SELFPAY ==
[2024-01-12 09:06] VITALS: BP 120/69; PULSE 64; RESP 16; TEMP 36.3; O2SAT 98; BMI 22.4
[2024-01-12] MEDS: 0.9% NaCl Peripheral Flush Adult/Peds IV (09:43)
[2024-01-12] MEDS: Acetaminophen 325 MG Tablet 650 MG PO (09:50)
[2024-01-12] MEDS: DiphenhydrAMINE 50 MG/ML Syringe 25 MG IV (09:57)
[2024-01-12] MEDS: 0.9% NaCl IVPB Med Flush (250 mL) 15 ML IV (10:07)
[2024-01-12] MEDS: Immune Globulin 20 gm 20 GM/200 ML VIAL IV (10:26)
[2024-01-12] MEDS: Immune Globulin 5 GM 5 GM/50 ML VIAL IV (13:19)
== END 2024-01-12 23:59 | disposition home or self-care (01) ==
LOC: MEDOUTP 08:39
PROVIDERS: PCP Family Medicine
DX: D83.9 Common variable immunodeficiency, unspecified (principal)
CPT/HCPCS: 96365; 96366 ×3; 96375; J7050; A4216; J1568

== ENCOUNTER 2024-02-01 23:00 | Emergency (ER) | payer OTHER, SELFPAY ==
[2024-02-01 23:01] VITALS: BP 135/90; PULSE 64; RESP 18; TEMP 36.8; O2SAT 97; BMI 22.4
[2024-02-01] MEDS: DiphenhydrAMINE 50 MG/ML Syringe 25 MG IV (23:28)
[2024-02-01] MEDS: MethylPREDNISolone 125 MG/2 ML Vial 80 MG IV (23:29)
[2024-02-01] MEDS: Famotidine 200 MG/20 ML MDV 20 MG in 0.9% Normal Saline (Pres. free 8 ML 300 MG IV (23:39)
--- NOTE | 2024-02-02 00:20 | EDS_ITS ---
HPI History of Present Illness Chief Complaint: Allergic Reaction Informant: patient and family Narrative Narrative: 38-year-old female presenting to the emergency department out of concern for allergic reactions from. Patient states that she sees allergy immunology at [facility]. She states that she has been allergic to shrimp but on her most recent testing did not reaction and subsequently ingested shellfish without incident. Tonight she ate a shrimp salad from a local [employer] restaurant. She states that she has developed itching of her hands as well as hives particularly in the inguinal and axillary region. She notes some tingling of her lips. No diarrhea abdominal cramping or vomiting. She has access to an EpiPen but only lives a few blocks from the hospital so she did not take it. She has taken 2 doses of Benadryl in time by couple hours. She feels that she may be worsening. Patient has a history of CVID and liver disease. [facility] Medical History Diabetes Bowel obstruction CVID (common variable immunodeficiency) Ascites Liver disease Malabsorption due to intolerance, not elsewhere classified Abdominal pain Diarrhea Protein deficiency Borderline diabetes Home Medications ?Medication ?Instructions ?Recorded ?Last Taken ?Type hyoscyamine sulfate 0.125 mg 0.125 mg PO TID PRN abdomial pin 01/17/21 05/20/22 Rx tablet (Levsin) #30 tabs sertraline 50 mg tablet 50 mg PO DAILY MOOD/ANXIETY 05/20/22 05/19/22 History cholecalciferol (vitamin D3) 1,250 125 mcg PO QWEEK vitamin 08/28/23 Unknown History mcg (50,000 unit) tablet copper gluconate 2 mg capsule 2 mg PO DAILY supplement 08/28/23 Unknown History cyanocobalamin (vitamin B-12) 1,000 mcg PO DAILY vitamin 08/28/23 Unknown History 1,000 mcg capsule diphenoxylate-atropine 2.5 2 tab PO Q6H diarrhea 08/28/23 Unknown History mg-0.025 mg tablet empagliflozin 10 mg tablet 10 mg PO QDAY diabetes 08/28/23 Unknown History (Jardiance) epinephrine 0.3 mg/0.3 mL 0.3 mg IM PRN allergies 08/28/23 Unknown History injection, auto-injector ergocalciferol (vitamin D2) 1,250 1,250 mcg PO QWEEK vitamin 08/28/23 Unknown History mcg (50,000 unit) capsule human serum albumin diluent 0.03 % ml .Route 08/28/23 Unknown History injection solution immune globulin (human) (IgG) 10 g .Route 08/28/23 Unknown History gram intravenous solution levonorgestrel 21 mcg/24 hr (up to 1 device intrauterine ONCE 08/28/23 Unknown History 8 years) 52 mg intrauterine device (Mirena) magnesium L-lactate 84 mg 84 mg PO TID supplement 08/28/23 Unknown History tablet,extended release meloxicam 7.5 mg tablet 7.5 mg PO DAILY PRN joint pain 08/28/23 Unknown History multivitamin 1 tab PO DAILY vitamin 08/28/23 Unknown History potassium chloride 20 mEq 20 meq PO BID supplement 08/28/23 Unknown History tablet,extended release vitamin B complex 1 cap PO DAILY vitamin 08/28/23 Unknown History ondansetron HCl 4 mg tablet 4 mg PO Q8H PRN PRN nausea/vomiting 11/18/23 Unknown History sulfamethoxazole 800 1 tab PO .QOD 11/18/23 Unknown History mg-trimethoprim 160 mg tablet torsemide 20 mg tablet 40 mg PO BID 01/12/24 Unknown History Allergy/AdvReac Type Severity Reaction Status Date / Time adhesive tape Allergy Swelling Verified 02/01/24 23:01 hydrocodone Allergy Angioedema Verified 02/01/24 23:01 metformin Allergy Diarrhea Verified 02/01/24 23:01 oxycodone Allergy Angioedema Verified 02/01/24 23:01 guaifenesin (From Mucinex) AdvReac Other Verified 02/01/24 23:01 Family History Father Diabetes Mother Diabetes Surgical History H/O neck surgery H/O section Social History household members: spouse number of children: 4 current occupation: [employer] Smoking Status: Never smoker alcohol intake: never substance use type: does not use seatbelt use: always do you feel safe at home: Yes 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 ROS ED Constitutional Constitutional ED: Denies chills, fever(s) or weight loss Eyes Eyes: Denies change in vision or diplopia ENT ENT ED: Denies ear pain, rhinorrhea or sore throat Cardiovascular Cardiovascular: Denies chest pain, orthopnea, palpitations or racing heartbeat Respiratory/Chest Respiratory/Chest: Denies cough, dyspnea or orthopnea Gastrointestinal Gastrointestinal: Denies abdominal pain, diarrhea, nausea or vomiting Genitourinary Genitourinary ED: Denies dysuria, hematuria or urinary frequency Musculoskeletal Musculoskeletal: Denies arthralgias or myalgias Integumentary Reports rash and other Details: Pruritus ; Denies abscess Neurologic Neurologic: Reports paresthesias; Denies headache(s) or weakness Psychiatric Psychiatric: Denies anxiety, depression, suicidal ideation or suicidal thoughts Endocrine Endocrinology: Denies polydipsia, polyphagia or polyuria Allergic/Immunologic Allergic/Immunologic ED: Denies mouth swelling, tongue swelling or urticaria EXAM Physical Exam Const Vital Signs: 02/01/24 23:01 Temperature 98.3 F Temperature Source Temporal Pulse Rate 64 Respiratory Rate 18 Blood Pressure 135/90 H Blood Pressure Mean 105 Pulse Ox 97 Oxygen Delivery Method Room Air Positive well nourished and well developed General Appearance ED: well developed HEENT Reports normocephalic, head/scalp atraumatic and moist mucous membranes HEENT Narrative: No tongue or uvular swelling Eyes PERRL and EOMs intact bilaterally Neck no lymphadenopathy, supple and no JVD Resp normal respiratory effort and clear to auscultation bilaterally Cardio regular rate, regular rhythm and no murmurs GI normal to inspection, nondistended, normoactive bowel sounds and non-tender Palpation: soft Back/Spine no CVA tenderness and normal ROM Extremity normal to inspection General Extremety ED: Negative for edema General Extremity: Negative for edema Neuro oriented x3 and CN's II-XII intact bilaterally Sensorium / Orientation: alert Motor Exam: strength 5/5 throughout Psych mental status grossly normal Mood & Affect: Negative for depressed or tearful Skin no wounds Skin Narrative: Patient has some urticaria in the bilateral AC joints and most notably in the axilla. She is itching the hands. MDM MDM MDM Narrative Medical decision making narrative: Differential diagnosis includes but not limited to generalized allergic reaction anaphylaxis dermatitis contact dermatitis Patient received Benadryl Pepcid and Solu-Medrol. Repeat examination shows her symptoms to have resolved. She is resting more comfortably and will be discharged home. Benadryl as needed. Instructions to follow-up with allergy immunology History & Record Review Discussion w/independent historian: Patient Discharge Plan Triage Chief Complaint: Allergic Reaction ED Provider: Benny Roque Dx/Rx/DC Orders Clinical Impression: Allergic reaction to shellfish, Urticaria Instructions: ED Hives (Adult) Prescriptions: No Action copper gluconate 2 mg capsule 2 mg PO DAILY cholecalciferol (vitamin D3) 1,250 mcg (50,000 unit) tablet 125 mcg PO QWEEK ergocalciferol (vitamin D2) 1,250 mcg (50,000 unit) capsule 1,250 mcg PO QWEEK diphenoxylate-atropine 2.5-0.025 mg tablet 2 tab PO Q6H Jardiance 10 mg tablet 10 mg PO QDAY magnesium L-lactate 84 mg tablet extended release 84 mg PO TID immune globulin (human) (IgG) 10 gram recon soln .Route Rx Instructions: IV every 30 days 100ml epinephrine 0.3 mg/0.3 mL auto-injector 0.3 mg IM PRN Rx Instructions: 0.3 mg intramuscularly; vitamin B complex Capsule 1 cap PO DAILY multivitamin Tablet 1 tab PO DAILY cyanocobalamin (vitamin B-12) 1,000 mcg capsule 1,000 mcg PO DAILY potassium chloride 20 mEq tablet extended release 20 meq PO BID Mirena 21 mcg/24 hours (8 yrs) 52 mg intrauterine device 1 device intrauterine ONCE Rx Instructions: as a single dose human serum albumin diluent 0.03 % solution .Route Patient Comments: pt supposed to get it 11/23/23 Rx Instructions: IV fusion- monthly- dose not sure meloxicam 7.5 mg tablet 7.5 mg PO DAILY PRN (Reason: joint pain) hyoscyamine sulfate [Levsin] 0.125 mg tablet 0.125 mg PO TID PRN (Reason: abdomial pin) Qty: 30 0RF sertraline 50 mg tablet 50 mg PO DAILY ondansetron HCl 4 mg tablet 4 mg PO Q8H PRN PRN (Reason: nausea/vomiting) sulfamethoxazole-trimethoprim 800-160 mg tablet 1 tab PO .QOD Patient Comments: Takes MWF preventative torsemide 20 mg tablet 40 mg PO BID Primary Care Provider: Herny Wise Referrals: Henry Wise MD [Primary Care Provider] - Activity Restrictions/Additional Instructions: Benadryl as needed. Follow up with [facility] and avoid shellfish until directed otherwise Print Language: Burkinan Disposition Disposition: Home, Self Care
[2024-02-02 00:29] VITALS: BP 114/70; PULSE 65; RESP 16; TEMP 36.4; O2SAT 97
== END 2024-02-02 00:32 | disposition home or self-care (01) ==
PROVIDERS: Emergency Provider Emergency Medicine; PCP Family Medicine; Visit Provider Emergency Medicine
DX: L50.0 Allergic urticaria (principal)
CPT/HCPCS: 96374; 96375; 99283; A4216; J3490

== ENCOUNTER 2024-02-16 09:04 | Outpatient (CLI) | payer MEDICAID, SELFPAY ==
[2024-02-16 09:24] VITALS: BP 142/80; PULSE 73; RESP 16; TEMP 35.9; O2SAT 100; BMI 22.8
[2024-02-16] MEDS: DiphenhydrAMINE 50 MG/ML Syringe 25 MG IV (09:46)
[2024-02-16] MEDS: Acetaminophen 325 MG Tablet 650 MG PO (09:46)
[2024-02-16] MEDS: 0.9% NaCl Peripheral Flush Adult/Peds IV (09:52)
[2024-02-16] MEDS: 0.9% Normal Saline (100mL Bag) 100 ML 15 ML IV (09:53)
[2024-02-16] MEDS: Immune Globulin 20 gm 20 GM/200 ML VIAL IV (10:10)
[2024-02-16] MEDS: Immune Globulin 5 GM 5 GM/50 ML VIAL IV (13:05)
== END 2024-02-16 23:59 | disposition home or self-care (01) ==
PROVIDERS: PCP Family Medicine
DX: D83.9 Common variable immunodeficiency, unspecified (principal)
CPT/HCPCS: 96365; 96366; 96375; A4216; J1568

== ENCOUNTER 2024-02-23 08:47 | Outpatient (CLI) | payer MEDICAID, SELFPAY ==
[2024-02-23 08:54] VITALS: BP 136/77; PULSE 70; RESP 16; TEMP 35.7; O2SAT 99; BMI 22.4
[2024-02-23] MEDS: 0.9% NaCl Peripheral Flush Adult/Peds IV (09:31)
[2024-02-23] MEDS: 0.9% Normal Saline (100mL Bag) 100 ML 15 ML IV (09:31)
[2024-02-23] MEDS: Vedolizumab 300 MG in 0.9% Normal Saline (250mL Bag) 250 ML 500 MG IV (09:54)
[2024-02-23 10:39] VITALS: BP 149/76; PULSE 64; RESP 16; TEMP 36; O2SAT 97
[2024-02-23 10:52] VITALS: BP 132/73; PULSE 75; RESP 16; O2SAT 97
== END 2024-02-23 23:59 | disposition home or self-care (01) ==
LOC: MEDOUTP 08:48
PROVIDERS: PCP Family Medicine
DX: K52.3 Indeterminate colitis (principal)
CPT/HCPCS: 96365; J7050; A4216; J3380

== ENCOUNTER 2024-03-08 08:46 | Outpatient (CLI) | payer MEDICAID, SELFPAY ==
[2024-03-08] MEDS: 0.9% NaCl Peripheral Flush Adult/Peds IV (09:12)
[2024-03-08 09:35] VITALS: BP 118/74; PULSE 69; RESP 14; O2SAT 96; BMI 22.4
[2024-03-08] MEDS: Vedolizumab 300 MG in 0.9% Normal Saline (250mL Bag) 250 ML 500 MG IV (09:55)
[2024-03-08] MEDS: 0.9% NaCl IVPB Med Flush (250 mL) 15 ML IV (09:55)
[2024-03-08 11:08] VITALS: BP 120/81; PULSE 68; RESP 16; TEMP 35.8; O2SAT 97
== END 2024-03-08 23:59 | disposition home or self-care (01) ==
LOC: MEDOUTP 08:46
PROVIDERS: PCP Family Medicine
DX: K52.3 Indeterminate colitis (principal)
CPT/HCPCS: 96365; J7050; A4216; J3380

== ENCOUNTER 2024-03-15 08:57 | Outpatient (CLI) | payer MEDICAID, SELFPAY ==
[2024-03-15 09:09] VITALS: BP 136/79; PULSE 79; RESP 16; TEMP 35.9; O2SAT 96
[2024-03-15] MEDS: DiphenhydrAMINE 50 MG/ML Syringe 25 MG IV (09:29)
[2024-03-15] MEDS: Acetaminophen 325 MG Tablet 650 MG PO (09:29)
[2024-03-15] MEDS: 0.9% NaCl Peripheral Flush Adult/Peds IV (09:31)
[2024-03-15] MEDS: Immune Globulin 20 gm 20 GM/200 ML VIAL IV (09:59)
[2024-03-15] MEDS: Immune Globulin 5 GM 5 GM/50 ML VIAL IV (12:45)
[2024-03-15] MEDS: Albumin Human 25% (100 mL) 25 GM/100 ML BAG IV (13:12)
[2024-03-15 14:49] VITALS: BP 110/62; PULSE 83; RESP 16; TEMP 36.1; O2SAT 97
== END 2024-03-15 23:59 | disposition home or self-care (01) ==
LOC: MEDOUTP 08:57
PROVIDERS: PCP Family Medicine
DX: D80.1 Nonfamilial hypogammaglobulinemia (principal); K90.49 Malabsorption due to intolerance, not elsewhere classified
CPT/HCPCS: 96365; 96366; 96375; P9047; A4216; J1568

== ENCOUNTER 2024-04-09 12:12 | Outpatient (CLI) | payer MEDICAID, SELFPAY ==
[2024-04-09 12:21] VITALS: BP 129/75; PULSE 94; RESP 16; TEMP 35.9; O2SAT 96; BMI 23.4
[2024-04-09] MEDS: 0.9% NaCl Peripheral Flush Adult/Peds IV (12:28)
[2024-04-09] MEDS: 0.9% NaCl IVPB Med Flush (250 mL) 15 ML IV (12:33)
[2024-04-09] MEDS: Vedolizumab 300 MG in 0.9% Normal Saline (250mL Bag) 250 ML 500 MG IV (12:49)
[2024-04-09 13:51] VITALS: BP 114/76; PULSE 88; RESP 16; TEMP 36.7; O2SAT 96
== END 2024-04-09 23:59 | disposition home or self-care (01) ==
LOC: MEDOUTP 12:13
PROVIDERS: PCP Family Medicine
DX: K52.3 Indeterminate colitis (principal)
CPT/HCPCS: 96365; A4216; J3380

== ENCOUNTER 2024-04-12 08:08 | Outpatient (CLI) | payer MEDICAID, SELFPAY ==
[2024-04-12 08:17] VITALS: BP 127/70; PULSE 58; RESP 16; TEMP 36; O2SAT 95; BMI 23.4
[2024-04-12] MEDS: Albumin Human 25% (100 mL) 25 GM/100 ML BAG IV (08:38)
[2024-04-12] MEDS: 0.9% NaCl Peripheral Flush Adult/Peds IV (08:42)
[2024-04-12] MEDS: Acetaminophen 325 MG Tablet 650 MG PO (10:18)
[2024-04-12] MEDS: 0.9% NaCl IVPB Med Flush (250 mL) 15 ML IV (10:19)
[2024-04-12] MEDS: DiphenhydrAMINE 50 MG/ML Syringe 25 MG IV (10:20)
[2024-04-12] MEDS: Immune Globulin 20 gm 20 GM/200 ML VIAL IV (10:47)
[2024-04-12] MEDS: Immune Globulin 5 GM 5 GM/50 ML VIAL IV (13:53)
[2024-04-12 14:46] VITALS: BP 126/76; PULSE 68; RESP 16; TEMP 36.4; O2SAT 98
== END 2024-04-12 23:59 | disposition home or self-care (01) ==
LOC: MEDOUTP 08:08
PROVIDERS: PCP Family Medicine
DX: D80.1 Nonfamilial hypogammaglobulinemia (principal); K90.49 Malabsorption due to intolerance, not elsewhere classified
CPT/HCPCS: 96365; 96366; 96375; P9047; A4216; J1568

== ENCOUNTER 2024-05-10 07:59 | Outpatient (CLI) | payer MEDICAID, SELFPAY ==
[2024-05-10 08:12] VITALS: BP 112/70; PULSE 68; RESP 16; TEMP 35.5; O2SAT 99; BMI 22.2
[2024-05-10] MEDS: Albumin Human 25% (100 mL) 25 GM/100 ML BAG IV (08:36)
[2024-05-10] MEDS: 0.9% NaCl Peripheral Flush Adult/Peds IV ×2 (08:37→10:30)
[2024-05-10] MEDS: Ondansetron 4 MG/2 ML Vial IV (10:29)
[2024-05-10] MEDS: Acetaminophen 325 MG Tablet 650 MG PO (10:29)
[2024-05-10] MEDS: DiphenhydrAMINE 50 MG/ML Syringe 25 MG IV (10:29)
[2024-05-10] MEDS: Immune Globulin 20 gm 20 GM/200 ML VIAL IV (11:11)
[2024-05-10] MEDS: Immune Globulin 5 GM 5 GM/50 ML VIAL IV (14:13)
== END 2024-05-10 23:59 | disposition home or self-care (01) ==
LOC: MEDOUTP 08:02
PROVIDERS: PCP Family Medicine; Referring Provider Internal Medicine; Visit Provider Internal Medicine
DX: D80.1 Nonfamilial hypogammaglobulinemia (principal); D83.9 Common variable immunodeficiency, unspecified; K90.49 Malabsorption due to intolerance, not elsewhere classified
CPT/HCPCS: 96365; 96366 ×2; 96367; 96375 ×2; P9047; A4216; J1568; J2405

== ENCOUNTER → 2024-05-23 | Outpatient (CLI) | payer MEDICAID, SELFPAY ==
[2024-05-28 16:08] LABS: HPV APTIMA, High Risk Negative (Negative)
== END | disposition home or self-care (01) ==
LOC: LABSPEC 14:04
PROVIDERS: PCP Family Medicine; Referring Provider Nurse Practitioner Family; Visit Provider Nurse Practitioner Family
DX: Z12.4 Encounter for screening for malignant neoplasm of cervix (principal)

== ENCOUNTER 2024-05-31 08:51 | Outpatient (CLI) | payer MEDICAID, SELFPAY ==
[2024-05-31 09:17] VITALS: BP 122/73; PULSE 67; RESP 16; TEMP 36; O2SAT 97; BMI 21.4
[2024-05-31] MEDS: 0.9% NaCl Peripheral Flush Adult/Peds IV (09:19)
[2024-05-31] MEDS: Vedolizumab 300 MG in 0.9% Normal Saline (250mL Bag) 250 ML 500 MG IV (09:23)
[2024-05-31 10:04] VITALS: BP 137/81; PULSE 70; RESP 16; TEMP 35.9; O2SAT 96
== END 2024-05-31 23:59 | disposition home or self-care (01) ==
LOC: MEDOUTP 08:52
PROVIDERS: PCP Family Medicine; Referring Provider Internal Medicine; Visit Provider Internal Medicine
DX: K52.3 Indeterminate colitis (principal)
CPT/HCPCS: 96365; A4216; J3380

== ENCOUNTER 2024-06-07 07:57 | Outpatient (CLI) | payer MEDICAID, SELFPAY ==
[2024-06-07 08:07] VITALS: BP 133/66; PULSE 66; RESP 16; TEMP 36.1; O2SAT 100; BMI 21.4
[2024-06-07] MEDS: 0.9% NaCl Peripheral Flush Adult/Peds IV ×2 (08:23→12:21)
[2024-06-07] MEDS: Acetaminophen 325 MG Tablet 650 MG PO (08:23)
[2024-06-07] MEDS: DiphenhydrAMINE 50 MG/ML Syringe 25 MG IV (08:24)
[2024-06-07] MEDS: Immune Globulin 20 gm 20 GM/200 ML VIAL IV (08:52)
[2024-06-07] MEDS: Immune Globulin 5 GM 5 GM/50 ML VIAL IV (11:49)
[2024-06-07] MEDS: Ondansetron 4 MG/2 ML Vial IV (12:22)
[2024-06-07] MEDS: Albumin Human 25% (100 mL) 25 GM/100 ML BAG IV (12:27)
== END 2024-06-07 23:59 | disposition home or self-care (01) ==
LOC: MEDOUTP 07:57
PROVIDERS: PCP Family Medicine; Referring Provider Internal Medicine; Visit Provider Internal Medicine
DX: D80.1 Nonfamilial hypogammaglobulinemia (principal); K90.49 Malabsorption due to intolerance, not elsewhere classified
CPT/HCPCS: 96365; 96366 ×2; 96367; 96375 ×2; P9047; A4216; J1568; J2405

== ENCOUNTER → 2024-06-26 | Outpatient (CLI) | payer MEDICAID, SELFPAY | END | disposition home or self-care (01) | LOC: LABSPEC 13:55 | PROVIDERS: PCP Family Medicine; Visit Provider Family Medicine | DX: R09.81 Nasal congestion (principal) | CPT/HCPCS: 87070; 87205 ==

== ENCOUNTER 2024-07-03 08:44 | Outpatient (CLI) | payer MEDICAID, SELFPAY ==
[2024-07-03 08:48] VITALS: BP 138/71; PULSE 72; RESP 16; TEMP 35.7; O2SAT 98
[2024-07-03] MEDS: 0.9% NaCl Peripheral Flush Adult/Peds IV ×2 (08:59→12:45)
[2024-07-03] MEDS: DiphenhydrAMINE 50 MG/ML Syringe 25 MG IV (09:06)
[2024-07-03] MEDS: Acetaminophen 325 MG Tablet 650 MG PO (09:06)
[2024-07-03] MEDS: Immune Globulin 20 gm 20 GM/200 ML VIAL IV (09:30)
[2024-07-03] MEDS: Immune Globulin 5 GM 5 GM/50 ML VIAL IV (12:09)
[2024-07-03] MEDS: Albumin Human 25% (100 mL) 25 GM/100 ML BAG IV (12:48)
[2024-07-03 14:25] VITALS: BP 115/62; PULSE 84; RESP 16; TEMP 36.3; O2SAT 97
[2024-07-04 13:08] LABS: Immunoglobulin G 452 mg/dL (586-1602)
== END 2024-07-03 23:59 | disposition home or self-care (01) ==
LOC: MEDOUTP 08:44
PROVIDERS: PCP Family Medicine; Referring Provider Internal Medicine
DX: D80.1 Nonfamilial hypogammaglobulinemia (principal); D83.9 Common variable immunodeficiency, unspecified; K90.49 Malabsorption due to intolerance, not elsewhere classified
CPT/HCPCS: 96365; 96366; 96367; 96375; 82784; P9047; A4216; J1568

== ENCOUNTER 2024-07-25 12:24 | Outpatient (CLI) | payer MEDICAID, SELFPAY ==
[2024-07-25 12:31] VITALS: BP 131/75; PULSE 75; RESP 16; TEMP 36.1
[2024-07-25] MEDS: 0.9% NaCl Peripheral Flush Adult IV (12:37)
[2024-07-25] MEDS: 0.9% NaCl IVPB Med Flush (100mL) 15 ML IV (12:42)
[2024-07-25] MEDS: Vedolizumab 300 MG in 0.9% Normal Saline (250mL Bag) 250 ML 500 MG IV (12:58)
[2024-07-25 13:47] VITALS: BP 119/45
== END 2024-07-25 23:59 | disposition home or self-care (01) ==
LOC: MEDOUTP 12:25
PROVIDERS: PCP Family Medicine; Referring Provider Internal Medicine; Visit Provider Internal Medicine
DX: K52.3 Indeterminate colitis (principal); N93.9 Abnormal uterine and vaginal bleeding, unspecified
CPT/HCPCS: 96365; 76830; 76856; A4216; J3380

== ENCOUNTER → 2024-07-25 | Outpatient (CLI) | payer MEDICAID, SELFPAY ==
--- NOTE | 2024-07-25 13:58 | US_ITS ---
PROCEDURE: PELVIC W/ TRANSVAGINAL (USPELTVAG), 07/25/2024 REASON FOR EXAM: AUB TECHNIQUE: Grayscale and color doppler transabdominal and transvaginal pelvic ultrasound was performed. COMPARISON: None FINDINGS: Uterus: 8.5 x 5.1 x 3.5 cm, Anteverted. Unremarkable echotexture. Endometrium: 4 mm, unremarkable. An IUD appears in the expected location. Cervix: Unremarkable Right ovary: 3.2 x 2.8 x 2.2 cm (estimated volume 9.3 mL). A simple appearing unilocular likely physiologic cyst or dominant follicle measures 2.0 x 1.9 x 2.2 cm. Left ovary: 3.3 x 2.7 x 1.6 cm (estimated volume 7.5 mL). A simple appearing unilocular likely physiologic cyst or dominant follicle measures 2.0 x 1.5 cm. Free fluid:Small volume. Other: Estimated bladder volume 576 on transabdominal scanning. US/Pelvic w/ Transvaginal IMPRESSION: 1. No findings which might explain the patient's symptoms. 2. Small volume pelvic free fluid, probably greater than expected to represent a physiologic etiology, nonspecific. 3. Additional description as above. Reading Location: [id number]
== END | disposition home or self-care (01) ==
LOC: US 13:58
PROVIDERS: PCP Family Medicine; Referring Provider Obstetrics & Gynecology; Visit Provider Obstetrics & Gynecology
DX: N93.9 Abnormal uterine and vaginal bleeding, unspecified (principal)
CPT/HCPCS: 76830; 76856

== ENCOUNTER 2024-08-02 08:25 | Outpatient (CLI) | payer MEDICAID, SELFPAY ==
[2024-08-02 08:35] VITALS: BP 128/89; PULSE 72; RESP 16; TEMP 36.3; O2SAT 99; BMI 22.2
[2024-08-02] MEDS: Acetaminophen 325 MG Tablet 650 MG PO (08:46)
[2024-08-02] MEDS: 0.9% NaCl IVPB Med Flush (100mL) 15 ML IV (08:46)
[2024-08-02] MEDS: DiphenhydrAMINE 50 MG/ML Syringe 25 MG IV (08:48)
[2024-08-02] MEDS: 0.9% NaCl Peripheral Flush Adult IV ×2 (08:59→13:02)
[2024-08-02] MEDS: Immune Globulin 20 gm 20 GM/200 ML VIAL IV (09:16)
[2024-08-02] MEDS: Immune Globulin 10 gm 10 GM/100 ML VIAL IV (12:02)
[2024-08-02] MEDS: Albumin Human 25% (100 mL) 25 GM/100 ML BAG IV (12:59)
[2024-08-02 14:39] VITALS: BP 122/69; PULSE 90
== END 2024-08-02 23:59 | disposition home or self-care (01) ==
LOC: MEDOUTP 08:25
PROVIDERS: PCP Family Medicine; Referring Provider Internal Medicine; Visit Provider Internal Medicine
DX: D80.1 Nonfamilial hypogammaglobulinemia (principal); D83.9 Common variable immunodeficiency, unspecified; K90.49 Malabsorption due to intolerance, not elsewhere classified
CPT/HCPCS: 96365; 96366 ×2; 96367; 96375; P9047; A4216; J1568

== ENCOUNTER → 2024-08-20 | Outpatient (CLI) | payer MEDICAID, SELFPAY ==
[2024-08-20 17:22] LABS: Anion Gap 9 (5-15); BUN 36 mg/dL (4-19); BUN/Creat Ratio 46.5 RATIO (10-20); Calcium,Total 7.7 mg/dL (7.6-11.0); Carbon Dioxide 22.8 mmol/L (21.0-32.0); Chloride 106 mmol/L (98-108); Creatinine, Serum 0.76 mg/dL (0.70-1.20); EST Glomerular Filtration Rate 103 (>60); Glucose 147 mg/dL (70-99); Potassium 4.2 mmol/L (3.3-5.1); Sodium Level 138 mmol/L (133-145)
== END | disposition home or self-care (01) ==
LOC: LAB 15:02
PROVIDERS: PCP Family Medicine
DX: K74.60 Unspecified cirrhosis of liver (principal)
CPT/HCPCS: 36415; 80048

== ENCOUNTER 2024-09-05 08:24 | Outpatient (CLI) | payer MEDICAID, SELFPAY ==
[2024-09-05 08:35] VITALS: BP 119/74; PULSE 68; RESP 16; TEMP 35.9; O2SAT 99; BMI 20.2
[2024-09-05] MEDS: Acetaminophen 325 MG Tablet 650 MG PO (08:42)
[2024-09-05] MEDS: DiphenhydrAMINE 50 MG/ML Syringe 25 MG IV (08:46)
[2024-09-05] MEDS: Immune Globulin 20 gm 20 GM/200 ML VIAL IV (09:15)
[2024-09-05] MEDS: Immune Globulin 10 gm 10 GM/100 ML VIAL IV (11:57)
[2024-09-05] MEDS: Albumin Human 25% (100 mL) 25 GM/100 ML BAG IV (12:50)
[2024-09-05 14:28] VITALS: BP 115/66; PULSE 89; RESP 16
== END 2024-09-05 23:59 | disposition home or self-care (01) ==
LOC: MEDOUTP 08:26
PROVIDERS: PCP Family Medicine; Referring Provider Internal Medicine; Visit Provider Internal Medicine
DX: D83.9 Common variable immunodeficiency, unspecified (principal); D80.1 Nonfamilial hypogammaglobulinemia; K90.49 Malabsorption due to intolerance, not elsewhere classified
CPT/HCPCS: 96365; 96366 ×2; 96367; 96375; P9047; A4216; J1568

== ENCOUNTER → 2024-09-16 | Outpatient (CLI) | payer MEDICAID, SELFPAY ==
[2024-09-16 12:33] LABS: Absolute Lymphocyte Count 0.57 X10^3/uL (0.83-4.51); Absolute Neutrophil Count 4.5 X10^3/uL (2.0-7.7); Basophil# 0.02 X10^3/uL; Basophil% 0.3 % (0-1); Eosinophil# 0.15 X10^3/uL; Eosinophils% 2.6 % (0-5); Hematocrit 43.7 % (37-47); Hemoglobin 15.5 g/dL (12.0-15.0); Lymphocyte # 0.57 X10^3/ul (0.83-4.51); Mean Corp Hgb Conc 35.5 g/dL (32-36); Mean Corpuscular Hgb 32.8 pg (27.0-32.0); Mean Corpuscular Volume 92.6 fL (81-99); Mean Platelet Vol. 9.5 fl (6.2-12.0); Monocyte# 0.46 X10^3/uL; NRBC Flagged by Analyzer 0 % (0-5); Neutrophil # 4.51 X10^3/uL (2.7-7.7); Neutrophil % 78.9 % (47-70); POSITIVE DIFFERENTIAL YES; Platelet Count 397 K/mm3 (150-450); RBC Distribution Width CV 12.2 % (11.6-14.6); RBC Distribution Width SD 41.5 fl (35.1-43.9); Red Blood Count 4.72 M/mm3 (4.2-5.4); White Blood Count 5.7 K/mm3 (4.4-11.0)
[2024-09-16 12:59] LABS: ALB/GLOB Ratio 1.2 RATIO (0.9-2.4); AST(SGOT) 24 U/L (<=31); Alanine Aminotransfer ALT/SGPT 33 U/L (<=34); Albumin, Serum 2.4 g/dL (3.5-5.0); Alkaline Phosphatase 83 U/L (35-104); Anion Gap 9 (5-15); BUN 15 mg/dL (4-19); BUN/Creat Ratio 32.7 RATIO (10-20); Calcium,Total 6.7 mg/dL (7.6-11.0); Carbon Dioxide 18.7 mmol/L (21.0-32.0); Chloride 111 mmol/L (98-108); Creatinine, Serum 0.45 mg/dL (0.70-1.20); EST Glomerular Filtration Rate 128 (>60); Globulin 1.9 g/dL (2.2-4.2); Glucose 124 mg/dL (70-99); Magnesium 1.7 mg/dL (1.5-2.2); Potassium 3.4 mmol/L (3.3-5.1); Protein, Total 4.3 g/dL (5.9-8.4); Sodium Level 138 mmol/L (133-145); Total Bilirubin 0.18 mg/dL (0.00-1.30)
== END | disposition home or self-care (01) ==
LOC: VSLAB 09:37
PROVIDERS: PCP Family Medicine; Visit Provider Family Medicine
DX: R52 Pain, unspecified (principal)
CPT/HCPCS: 36415; 80053; 83735; 84443; 85025

== ENCOUNTER 2024-09-20 18:04 | Emergency (ER) | payer MEDICAID, SELFPAY ==
[2024-09-20 18:04] VITALS: BP 126/95; PULSE 96; RESP 16; TEMP 36.2; O2SAT 97; BMI 20.4
--- NOTE | 2024-09-20 18:20 | ED.RN ---
This RN offered the patient to file a police report, the patient informed this RN that she already had already called the police and did not need to do anything further here.
--- NOTE | 2024-09-20 18:20 | RAD_ITS ---
PROCEDURE: RIBS UNI MIN 3V W/PA CHEST 09/20/2024 REASON FOR EXAM: PAIN TECHNIQUE: Frontal and bilateral oblique views of the bilateral ribs. COMPARISON: None FINDINGS: Small-moderate left pleural effusion and bibasilar atelectasis. No pneumothorax. No focal consolidation. No evidence of acute rib fractures on the left. RAD/Ribs Uni Min 3V w/PA Chest IMPRESSION: See above Reading Location: [facility]
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
[2024-09-20] MEDS: Ketorolac 15 MG/ML Vial IM (18:30)
[2024-09-20 19:41] VITALS: PULSE 80; RESP 18; O2SAT 98
== END 2024-09-20 19:43 | disposition home or self-care (01) ==
PROVIDERS: Emergency Provider Emergency Medicine; PCP Family Medicine; Visit Provider Emergency Medicine
DX: S20.229A Contusion of unspecified back wall of thorax, initial encounter (principal); S20.412A Abrasion of left back wall of thorax, initial encounter; Y04.8XXA Assault by other bodily force, initial encounter; Z79.899 Other long term (current) drug therapy
CPT/HCPCS: 71101; 96372; 99283

== ENCOUNTER 2024-09-24 10:46 | Outpatient (CLI) | payer MEDICAID, SELFPAY ==
[2024-09-24 11:16] VITALS: BP 132/69; PULSE 69; RESP 16; TEMP 35.5; O2SAT 98; BMI 20.2
[2024-09-24] MEDS: 0.9% NaCl Peripheral Flush Adult IV (11:27)
[2024-09-24] MEDS: 0.9% NaCl IVPB Med Flush (100mL) 15 ML IV (11:35)
[2024-09-24] MEDS: Vedolizumab 300 MG in 0.9% Normal Saline (250mL Bag) 250 ML 500 MG IV (11:47)
[2024-09-24 12:41] VITALS: BP 117/59; PULSE 64; RESP 16; TEMP 35.9; O2SAT 96
== END 2024-09-24 23:59 | disposition home or self-care (01) ==
LOC: MEDOUTP 10:46
PROVIDERS: PCP Family Medicine; Referring Provider Internal Medicine; Visit Provider Internal Medicine
DX: K52.3 Indeterminate colitis (principal)
CPT/HCPCS: 96365; A4216; J3380

== ENCOUNTER 2024-10-01 12:28 | Day surgery (SDC) | payer MEDICAID, SELFPAY ==
[2024-10-01] VITALS (9 sets, daily range): BP systolic 103–127; BP diastolic 59–66; PULSE 87–95; RESP 16–18; TEMP 36.4–37.2; O2SAT 89–97; BMI 22.3
[2024-10-01] MEDS: Lactated Ringers 1,000 ML 15 ML IV (13:25)
[2024-10-01 13:26] LABS: Internal QC Validated? YES +Cl - CLEAR BKGD; Pregnancy, Urine Negative Negative
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
[2024-10-01 13:58] LABS: Bedside Glucose 115 mg/dL (74-106)
--- NOTE | 2024-10-01 14:07 | PCM.PRE.AN2 ---
ASA Classification* ASA Classification ASA Classification: 3 Assessment & Plan Anesthesia* Anesthesia Assessment Anesthesia Assessment: Discussed sedation and/or anesthesia options, risks, benefits, and alternatives with patient/parents/legal guardian/POA. Questions invited. The patient/parents/legal guardian/POA seems to understand and agrees to proceed with anesthesia plan. Reviewed the physical assessment, medical history, allergy history and patient home medications list prior to surgery/procedure/anesthetic and documented any changes. Performed airway and anesthesia risk assessments. Anesthesia Type Anesthesia Type: MAC History Source History Obtained from:: Patient and Chart Anesthesia Focused Assessment* Temperature: 97.6 F Pulse Rate: 89 Blood Pressure: 127/59 Respiratory Rate: 18 Pulse Ox: 97 Oxygen Delivery Method: Room Air Airway Assessment Mouth opens: 2 cm Mallampati Score: III Teeth Condition: Intact Neck Range of motion (ROM): Full ROM Focused Labs Anesthesia Preop lab: CBC WBC 5.7 K/mm3 (4.4-11.0) 09/16/24 09:09/16/24 RBC 4.72 M/mm3 (4.2-5.4) 09/16/24 09:38 09/16/24 Hgb 15.5 g/dL (12.0-15.0) H 09/16/24 09:38 09/16/24 Hct 43.7 % (37-47) 09/16/24 09:38 09/16/24 Plt Count 397 K/mm3 (150-450) 09/16/24 09:38 09/16/24 CHEMISTRY Potassium 3.4 mmol/L (3.3-5.1) 09/16/24 09:38 09/16/24 Sodium 138 mmol/L (133-145) 09/16/24 09:38 09/16/24 Magnesium 1.7 mg/dL (1.5-2.2) 09/16/24 09:38 09/16/24 Phosphorus 2.7 mg/dL (2.5-4.9) 11/19/23 05:38 11/19/23 BUN 15 mg/dL (4-19) 09/16/24 09:38 09/16/24 Creatinine 0.45 mg/dL (0.70-1.20) L 09/16/24 09:38 09/16/24 Glucose 124 mg/dL (70-99) H 09/16/24 09:38 09/16/24 POC Glucose 115 mg/dL (74-106) H 10/01/24 13:33 10/01/24 TSH 4.960 uIU/mL (0.300-4.200) H 09/16/24 09:38 09/16/24 COAG PT 13.2 SECONDS (11.7-14.9) 05/20/22 20:15 05/20/22 Urine Test Negative Negative 10/01/24 13:00 10/01/24 Tst Clinic Negative 08/09/24 13:57 08/09/24 Pre-Assessment Diagnosis/Proposed Procedure Planned Operative Procedure(s): HYSTEROSCOPY D&C Anesthesia History 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 When Was Last Pacemaker Check QUESTION #4 FULL TEXT: You/Your Family Experience fever (hyperthermia) with Anesthesia Last Oral Intake Last Oral intake: Last Oral Intake NPO since 07:00 10/01/24 13:21 Meds taken in AM with sips of No 10/01/24 13:21 water? Meds patient instructed to take am of surgery Any additional information?: Yes NPO since: 07:00 (Patient had Mountain Dew at 7 AM.) Meds taken in AM with sips of water?: No PONV PONV - video game developer: PONV - video game developer Female Yes 09/25/24 16:13 HX of Motion Sickness Yes 09/25/24 16:13 HX of N/V After Surgery No 09/25/24 16:13 Non-Smoker Yes 09/25/24 16:13 Duration of Surgery greater No 09/25/24 16:13 than 60 minutes Number of Risk Factors 3 09/25/24 16:13 PONV Score Moderate Risk 09/25/24 16:13 Height & Weight Height & Weight: Anesthesia: Height & Weight Height 4 ft 11 in 10/01/24 13:21 Weight: 50.2 kg 10/01/24 13:21 Body Mass Index (BMI) 22.3 10/01/24 13:21 Respiratory Assessment Respiratory Assessment - video game developer: Respiratory Tract Infection Hx - video game developer Hx Respiratory Tract Infection No 09/25/24 16:13 STOP Sleep Apnea STOP Sleep Apnea - video game developer: STOP Sleep Apnea - video game developer Hx Hypertension No 09/25/24 16:13 Hx Sleep Apnea No 09/25/24 16:13 CPAP BIPAP Do you snore loudly (louder No 09/25/24 16:13 than talking or can be heard Do you often feel tired/ Yes 09/25/24 16:13 fatigued/ sleepy during daytime? Has anyone observed you stop No 09/25/24 16:13 breathing during sleep? STOP Results Negative 09/25/24 16:13 QUESTION #5 FULL TEXT : Do you snore loudly (louder than talking or can be heard through closed doors)? Tobacco Use History Tobacco Use History - video game developer: Tobacco Use History - video game developer Tobacco Use Smoking Status Never smoker 09/25/24 16:13 Hx Tobacco Use No 09/25/24 16:13 Years Smoking Packs Smoked per Day Smoking Cessation Date was within the last 15 years Hx Smoking Cessation Date Hx Smoking Cessation Counseling Hematologic Medial History Hematologic Hx - video game developer: Hematologic Medical Hx - supplier development manager Hx of Blood Transfusion No 09/25/24 16:13 Hx of Transfusion in last 3 No 09/25/24 16:13 Months Date of Last Transfusion (if within last 3 months) Ever experience any problems No 09/25/24 16:13 with transfusion(s)? Specify any problems Hx of Preganancy in last 3 No 09/25/24 16:13 Months Nurse Filling Out Transfusion DSCHRIBER 09/25/24 16:13 & Questions: Date: 09/25/24 09/25/24 16:13 Time: 16:15 09/25/24 16:13 Patient unable to answer at this time (ie. confused, unrespo /Reproduction History /Reproductive History - video game developer: /Reproductive Hx- video game developer Hx Now No 09/25/24 16:13 Gestational Age (in weeks): EDC: Hx Hx Para Hx Section SAB No 09/25/24 16:13 Active Medications Active Medications: Current Medications Generic Name Dose Route Start Last Admin Trade Name Freq PRN Reason Stop Dose Admin Lactated Ringer's 1,000 mls @ 15 mls/hr 10/01/24 12:45 10/01/24 13:25 IV 15 mls/hr .Q48H DOMINIQUE Administration PFSH Medical History Wears glasses Depression Anxiety Diabetes Fatty liver Cirrhosis Easy bruising Restless legs Seizures Chronic diarrhea Gastric reflux Non-smoker Shortness of breath on exertion Leg cramps History of pain when walking History of edema Bowel obstruction CVID (common variable immunodeficiency) Ascites Liver disease Malabsorption due to intolerance, not elsewhere classified Abdominal pain Diarrhea Protein deficiency Home Medications ?Medication ?Instructions ?Recorded ?Last Taken ?Type hyoscyamine sulfate 0.125 mg 0.125 mg PO TID PRN abdomial pin 01/17/21 05/20/22 Rx tablet (Levsin) #30 tabs sertraline 50 mg tablet 50 mg PO QHS MOOD/ANXIETY 05/20/22 05/19/22 History cholecalciferol (vitamin D3) 1,250 125 mcg PO QWEEK vitamin 08/28/23 Unknown History mcg (50,000 unit) tablet copper gluconate 2 mg capsule 2 mg PO DAILY supplement 08/28/23 Unknown History cyanocobalamin (vitamin B-12) 1,000 mcg PO DAILY vitamin 08/28/23 Unknown History 1,000 mcg capsule diphenoxylate-atropine 2.5 2 tab PO Q6H diarrhea 08/28/23 Unknown History mg-0.025 mg tablet epinephrine 0.3 mg/0.3 mL 0.3 mg IM PRN allergies 08/28/23 Unknown History injection, auto-injector human serum albumin diluent 0.03 % ml .Route 08/28/23 Unknown History injection solution immune globulin (human) (IgG) 10 10 g IV QMONTH 08/28/23 Unknown History gram intravenous solution levonorgestrel (Mirena) 1 device intrauterine ONCE 08/28/23 Unknown History magnesium L-lactate 84 mg 84 mg PO TID supplement 08/28/23 Unknown History tablet,extended release multivitamin 1 tab PO DAILY vitamin 08/28/23 Unknown History vitamin B complex 1 cap PO DAILY vitamin 08/28/23 Unknown History ondansetron HCl 4 mg tablet 4 mg PO Q8H PRN PRN nausea/vomiting 11/18/23 Unknown History sulfamethoxazole 800 1 tab PO MOWEFR 11/18/23 Unknown History mg-trimethoprim 160 mg tablet torsemide 20 mg tablet 40 mg PO BID 01/12/24 Unknown History spironolactone 100 mg tablet 50 mg PO QAM 08/09/24 Unknown History fluticasone propionate 50 2 spray intranasal DAILY 09/20/24 Unknown History mcg/actuation nasal spray,suspension ketorolac 10 mg tablet 10 mg PO Q8H PRN pain 3 days #9 09/20/24 Unknown Rx tabs cholecalciferol (vitamin D3) 125 125 mcg PO DAILY 09/25/24 Unknown History mcg (5,000 unit) tablet (Vitamin D3) Allergy/AdvReac Type Severity Reaction Status Date / Time adhesive tape Allergy Swelling Verified 10/01/24 13:20 hydrocodone Allergy Angioedema Verified 10/01/24 13:20 metformin Allergy Diarrhea Verified 10/01/24 13:20 oxycodone Allergy Angioedema Verified 10/01/24 13:20 guaifenesin (From Mucinex) AdvReac Other Verified 10/01/24 13:20 Family History Father Diabetes Mother Diabetes Surgical History Hx of myringotomy History of vascular access device H/O neck surgery H/O section Social History household members: spouse number of children: 4 current occupation: [employer] Smoking Status: Never smoker alcohol intake: never substance use type: does not use seatbelt use: always do you feel safe at home: Yes 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
--- NOTE | 2024-10-01 14:20 | UTC_PTH ---
PATIENT: NAY AMAYA LOC: [facility] [place] U#:[id number] AGE/SX: 38/F ROOM: RE10/01/[address]: Dr. Zulema Marquez DO : 1985 BED: DIS: 10/01/2024 SPEC #: [id number] RECD: 10/01/24 16:46 STATUS: ARIADNA BRENNAN #: [id number] CINDY: 10/01/24 14:[address]: Zulema Marquez DEPT: SURGICAL PATHOLOGY RECD BY: Timmy Foss ENTERED: 10/02/24 08:57 SP TYPE: MN CUR OTHR DR: Thalia El, [facility], DO Tissues: A - Uterine cervix, NOS Procedures: Surgery Specimen Level IV HEADER OPERATION: Hysteroscopy, D&C PRE-OP DIAGNOSIS: Abnormal uterine bleeding TISSUE SUBMITTED: A- Uterine curettings MICROSCOPIC DIAGNOSIS A. Endometrium, curettage: * Inactive endometrium with progestin effect. * Benign endocervical mucosa. MICROSCOPIC DESCRIPTION Slides are reviewed. GROSS DESCRIPTION A. Received in formalin in a container labeled with the patient's name, date of , and uterine curettings are multiple de leon fragments of soft tissue admixed with blood and mucus measuring 2.5 x 2.3 x 0.7 cm in aggregate. Submitted in toto in A1-A2. [facility] 10-02-2024 CPT:05477
--- NOTE | 2024-10-01 15:05 | DCINST_ITS ---
Discharge Instructions Diet Discharge Diet: No restrictions DC O2, CPAP, BIPAP needs Home O2 Discharge instructions: No Dressing / Incision Discharge Activity: Return to Normal Activity, May Shower and May Take a Tub Bath (after 1 week) May resume sexual activity in: 1-2 weeks Weight Bearing Status: Weight bearing as tolerated Lifting Restrictions: none Dressing / Incision Call your doctor if you observe: Fever of 101 or Higher, Using more than 1 pad per hour, Shortness of breath and Uncontrolled pain Follow Up Care Please Follow Up With: Zulema Marquez DO When: Call [phone] to schedule appointment. Test Results: Test results from this visit will be discussed in further detail at your follow- up appointment, if applicable. Discharge Plan Admission Primary Reason for Your Visit: hysteroscopy dilation and curettage Attending Provider: Zulema Marquez Primary Care Provider: Thalia El [facility] Instructions Print Language: Greenlandic Discharge Orders/Prescriptions Prescriptions: New ketorolac 10 mg tablet 10 mg PO Q8H PRN (Reason: pain) 3 Days Qty: 10 0RF Continued copper gluconate 2 mg capsule 2 mg PO DAILY cholecalciferol (vitamin D3) 1,250 mcg (50,000 unit) tablet 125 mcg PO QWEEK diphenoxylate-atropine 2.5-0.025 mg tablet 2 tab PO Q6H magnesium L-lactate 84 mg tablet extended release 84 mg PO TID immune globulin (human) (IgG) 10 gram recon soln 10 g IV QMONTH Rx Instructions: 10 grams intravenously; IV every 30 days 100ml epinephrine 0.3 mg/0.3 mL auto-injector 0.3 mg IM PRN Rx Instructions: 0.3 mg intramuscularly; vitamin B complex Capsule 1 cap PO DAILY multivitamin Tablet 1 tab PO DAILY cyanocobalamin (vitamin B-12) 1,000 mcg capsule 1,000 mcg PO DAILY Mirena 21 mcg/24 hours (8 yrs) 52 mg intrauterine device 1 device intrauterine ONCE Rx Instructions: as a single dose human serum albumin diluent 0.03 % solution .Route Patient Comments: pt supposed to get it 11/23/23 Rx Instructions: IV fusion- monthly- dose not sure spironolactone 100 mg tablet 50 mg PO QAM hyoscyamine sulfate [Levsin] 0.125 mg tablet 0.125 mg PO TID PRN (Reason: abdomial pin) Qty: 30 0RF sertraline 50 mg tablet 50 mg PO QHS ondansetron HCl 4 mg tablet 4 mg PO Q8H PRN PRN (Reason: nausea/vomiting) sulfamethoxazole-trimethoprim 800-160 mg tablet 1 tab PO MOWEFR Patient Comments: Takes MWF preventative torsemide 20 mg tablet 40 mg PO BID fluticasone propionate 50 mcg/actuation spray,suspension 2 spray INTRANASAL DAILY ketorolac 10 mg tablet 10 mg PO Q8H PRN (Reason: pain) 3 Days Qty: 9 0RF cholecalciferol (vitamin D3) [Vitamin D3] 125 mcg (5,000 unit) tablet 125 mcg PO DAILY Referrals / Follow Up: Thalia El Nic, DO [Primary Care Provider] - Disposition Disposition (needs filled in before D/C Order can be placed): Home, Self Care
[2024-10-01] MEDS: Lidocaine 1% (20 ml mdv) 20 ML Vial (15:44)
[2024-10-01] MEDS: Levonorgestrel IUD (Liletta) 1 EACH INTRA-UTER (15:53)
--- NOTE | 2024-10-01 16:06 | PCM.OPRPT ---
Problems Associated Problem List Diagnoses (1) Abnormal uterine bleeding: (2) IUD (intrauterine device) in place: Multi Select Codes Urinary/Genital Urinary/Genital CPT Codes: 50274 Insert IUD and 02737 Hysteroscopy,EMC, Polypectomy Operative Report (Standard) Operative Information Date of Procedure: 10/01/24 Pre-Operative Diagnosis: abnormal uterine bleeding Post-Operative Diagnosis: abnormal uterine bleeding Surgery/Procedure Performed: hysteroscopy D&C, removal and replacement of intrauterine device cephalometric technician: No Type of Anesthesia: MAC and Topical Anesth RN Documented Start/Stop Times: Operation Date: 10/01/24 14:20 Case Time Into Pre-Op 10/01/24 12:35 Out of Pre-Op 10/01/24 15:23 Anesthesia Start 10/01/24 15:25 Into Room 10/01/24 15:25 Procedure Start 10/01/24 15:43 Procedure End 10/01/24 15:57 Procedure Start Time: 15:43 Procedure Stop Time: 15:57 Select all DRAINS/GRAFTS/IMPLANTS that apply: None Estimated Blood Loss: 5cc Specimen collected: Yes Description of specimen(s) removed: endometrial curetting's Description of surgery: Patient was prepped and draped in a normal sterile fashion under MAC anesthesia. A weighted speculum was placed in the vagina and the anterior lip of the cervix was grasped with a single-tooth tenaculum. A paracervical block was placed with 1% lidocaine. Cervix was progressively dilated to allow passage of a 5 mm hysteroscope. The lining was fully visualized and noted to have and IUD at the fundus. Around the IUD was a moderate sized blood clot. The iud was removed without difficulty.. Uterine sounded to 8 cm. Curettage was performed and the specimen was sent to pathology. A new progesterone IUD was then inserted into the uterus. The strings were cut to 3cm from the cervix. All instruments were removed from the vagina and excellent hemostasis was noted. Patient was awoken and taken to recovery in stable condition. Surgical Findings: normal vagina, cervix, and endometrium. IUD in place Complications Complications: No Admit VTE Documentation VTE Present on Admission: No VTE Mechan Device Prophylaxis: SCD's VTE Pharm Prophylaxis ordered?: No Reason prophylaxis not ordered: Treatment Not Indicated
--- NOTE | 2024-10-01 16:10 | PCM.POST.ANE ---
Anesthesia: Postop Eval I Current Vital Signs Temperature: 98.9 F Pulse Rate: 95 Blood Pressure: 115/61 Respiratory Rate: 16 Pulse Ox: 92 Oxygen Delivery Method: Nasal Cannula Oxygen Flow Rate (L/min): 2 Assessment Airway patent: Yes Spontaneous unlabored respirations: Yes Mental status: Awake and Calm nausea: No Vomiting: No Anesthesia Complication: No Fluid Hydration Crystalloid volume administer (ml): 300 Total IV fluid infused: 300 Progress Note Anesthesia document: Postop Eval 1 completed: Yes
--- NOTE | 2024-10-01 16:13 | POSTOPAN2_ITS ---
Anesthesia Postop Eval I Sum Postop Eval Completion status Anesthesia document: Postop Eval 1 completed: Yes Anesthesia Postop Eval I Summary Anesthesia Postop Eval I Summary: Anesthesia Postop Eval I: Assessment Summary Airway patent Yes 10/01/24 16:11 CASH APPLICATION CLERK.MEDM Spontaneous unlabored Yes 10/01/24 16:11 CASH APPLICATION CLERK.MEDM respirations Mental status Awake,Calm 10/01/24 16:11 CASH APPLICATION CLERK.MEDM nausea No 10/01/24 16:11 CASH APPLICATION CLERK.MEDM Vomiting No 10/01/24 16:11 CASH APPLICATION CLERK.MEDM Anesthesia Postop Eval I: Fluid Summary Crystalloid volume administer 300 10/01/24 16:11 CASH APPLICATION CLERK.MEDM (ml) Colloids volume administered ( ml) Blood Product volume administered (ml) Total IV fluid infused 300 10/01/24 16:11 CASH APPLICATION CLERK.MEDM Anesthesia Postop Eval I: Summary Notes Anesthesia Complication No 10/01/24 16:11 CASH APPLICATION CLERK.MEDM Anesthesia Complication Comment: Post-operative progress note Anesthesia: Postop Eval II Evaluation Mental status: Awake Pain Level: 1 nausea: No Vomiting: No Complications Anesthesia Complication: No
--- NOTE | 2024-10-01 16:13 | PCM.POSTANE2 ---
Anesthesia Postop Eval I Sum Postop Eval Completion status Anesthesia document: Postop Eval 1 completed: Yes Anesthesia Postop Eval I Summary Anesthesia Postop Eval I Summary: Anesthesia Postop Eval I: Assessment Summary Airway patent Yes 10/01/24 16:11 COMPLIANCE [email or web address].MEDM Spontaneous unlabored Yes 10/01/24 16:11 COMPLIANCE MGR.MEDM respirations Mental status Awake,Calm 10/01/24 16:11 COMPLIANCE MGR.MEDM nausea No 10/01/24 16:11 COMPLIANCE MGR.MEDM Vomiting No 10/01/24 16:11 COMPLIANCE MGR.MEDM Anesthesia Postop Eval I: Fluid Summary Crystalloid volume administer 300 10/01/24 16:11 COMPLIANCE MGR.MEDM (ml) Colloids volume administered ( ml) Blood Product volume administered (ml) Total IV fluid infused 300 10/01/24 16:11 COMPLIANCE MGR.MEDM Anesthesia Postop Eval I: Summary Notes Anesthesia Complication No 10/01/24 16:11 COMPLIANCE MGR.MEDM Anesthesia Complication Comment: Post-operative progress note Anesthesia: Postop Eval II Evaluation Mental status: Awake Pain Level: 1 nausea: No Vomiting: No Complications Anesthesia Complication: No
== END 2024-10-01 16:58 | disposition home or self-care (01) ==
LOC: SDC 12:29 → AC 12:30
PROVIDERS: PCP Family Medicine; Referring Provider Obstetrics & Gynecology; Visit Provider Obstetrics & Gynecology
PROC: 0UDB8ZZ Extraction of Endometrium, Via Natural or Artificial Opening Endoscopic (ICD-10-PCS; CPT 58558; principal; 2024-10-01 14:10)
DX: N93.9 Abnormal uterine and vaginal bleeding, unspecified (principal); D83.9 Common variable immunodeficiency, unspecified; E11.9 Type 2 diabetes mellitus without complications; Z79.84 Long term (current) use of oral hypoglycemic drugs; Z30.433 Encounter for removal and reinsertion of intrauterine contraceptive device
CPT/HCPCS: 58558; 58301; 58300; 00952; 81025; 82962; 86850; 86900; 86901; 88305; J2405

== ENCOUNTER 2024-10-03 08:26 | Outpatient (CLI) | payer MEDICAID, SELFPAY ==
[2024-10-03 08:39] VITALS: BP 122/89; PULSE 92; RESP 16; TEMP 36.1; O2SAT 95
[2024-10-03] MEDS: 0.9% NaCl Peripheral Flush Adult IV (08:44)
[2024-10-03] MEDS: 0.9% NaCl IVPB Med Flush (100mL) 15 ML IV (08:44)
[2024-10-03] MEDS: Acetaminophen 325 MG Tablet 650 MG PO (08:48)
[2024-10-03] MEDS: DiphenhydrAMINE 50 MG/ML Syringe 25 MG IV (09:02)
[2024-10-03] MEDS: Immune Globulin 20 gm 20 GM/200 ML VIAL IV (09:21)
[2024-10-03] MEDS: Immune Globulin 10 gm 10 GM/100 ML VIAL IV (12:28)
[2024-10-03] MEDS: Albumin Human 25% (100 mL) 25 GM/100 ML BAG IV (13:12)
[2024-10-03 14:53] VITALS: BP 137/78; PULSE 93
== END 2024-10-03 23:59 | disposition home or self-care (01) ==
LOC: MEDOUTP 08:26
PROVIDERS: PCP Family Medicine; Referring Provider Internal Medicine; Visit Provider Internal Medicine
DX: D83.9 Common variable immunodeficiency, unspecified (principal); D80.1 Nonfamilial hypogammaglobulinemia; K90.49 Malabsorption due to intolerance, not elsewhere classified
CPT/HCPCS: 96365; 96366 ×3; 96367; P9047; A4216; J1568

== ENCOUNTER 2024-10-31 08:09 | Outpatient (CLI) | payer MEDICAID, SELFPAY ==
[2024-10-31 08:20] VITALS: BP 115/75; PULSE 69; RESP 16; TEMP 35.9; O2SAT 100; BMI 21.2
[2024-10-31] MEDS: Acetaminophen 325 MG Tablet 650 MG PO (08:53)
[2024-10-31] MEDS: DiphenhydrAMINE 50 MG/ML Syringe 25 MG IV (08:53)
[2024-10-31] MEDS: Ondansetron 4 MG/2 ML Vial IV (09:09)
[2024-10-31] MEDS: Immune Globulin 20 gm 20 GM/200 ML VIAL IV (09:19)
[2024-10-31] MEDS: Immune Globulin 10 gm 10 GM/100 ML VIAL IV (12:04)
[2024-10-31] MEDS: Albumin Human 25% (100 mL) 25 GM/100 ML BAG IV (13:08)
[2024-10-31 14:34] VITALS: BP 122/70; PULSE 82; RESP 16; TEMP 36.2; O2SAT 97
== END 2024-10-31 23:59 | disposition home or self-care (01) ==
LOC: MEDOUTP 08:09
PROVIDERS: PCP Family Medicine; Referring Provider Internal Medicine; Visit Provider Internal Medicine
DX: D80.1 Nonfamilial hypogammaglobulinemia (principal); D83.9 Common variable immunodeficiency, unspecified; K90.49 Malabsorption due to intolerance, not elsewhere classified
CPT/HCPCS: 96365; 96366 ×3; 96367; 96375 ×2; P9047; A4216; J1568; J2405

== ENCOUNTER 2024-11-15 09:45 | Outpatient (CLI) | payer MEDICAID, SELFPAY ==
[2024-11-15 10:22] VITALS: BP 125/83; PULSE 73; RESP 16; TEMP 36.1; O2SAT 95; BMI 21.2
[2024-11-15] MEDS: 0.9% NaCl IVPB Med Flush (100mL) 15 ML IV (10:50)
[2024-11-15] MEDS: Vedolizumab 300 MG in 0.9% Normal Saline (250mL Bag) 250 ML 500 MG IV (10:50)
[2024-11-15 12:00] VITALS: BP 125/65; PULSE 76
== END 2024-11-15 23:59 | disposition home or self-care (01) ==
LOC: MEDOUTP 09:46
PROVIDERS: PCP Family Medicine; Referring Provider Internal Medicine; Visit Provider Internal Medicine
DX: K52.3 Indeterminate colitis (principal)
CPT/HCPCS: 96365; A4216; J3380

== ENCOUNTER 2024-11-28 08:37 | Outpatient (CLI) | payer MEDICAID, SELFPAY ==
[2024-11-28 08:45] VITALS: BP 124/61; PULSE 69; RESP 16; TEMP 35.6; O2SAT 98
[2024-11-28] MEDS: 0.9% Saline Lock 10 ML Syringe IV (08:48)
[2024-11-28] MEDS: DiphenhydrAMINE 50 MG/ML Syringe 25 MG IV (09:04)
[2024-11-28] MEDS: Immune Globulin 20 gm 20 GM/200 ML VIAL IV (09:22)
[2024-11-28] MEDS: Immune Globulin 10 gm 10 GM/100 ML VIAL IV (12:07)
[2024-11-28] MEDS: Albumin Human 25% (100 mL) 25 GM/100 ML BAG IV (13:05)
[2024-11-28 14:43] VITALS: BP 107/90; PULSE 70; RESP 16; TEMP 36.6; O2SAT 98
== END 2024-11-28 23:59 | disposition home or self-care (01) ==
LOC: MEDOUTP 08:37
PROVIDERS: PCP Family Medicine; Referring Provider Internal Medicine; Visit Provider Internal Medicine
DX: D83.9 Common variable immunodeficiency, unspecified (principal); D80.1 Nonfamilial hypogammaglobulinemia; K90.49 Malabsorption due to intolerance, not elsewhere classified
CPT/HCPCS: 96365; 96366 ×3; 96367; 96375; P9047; A4216; J1568

== ENCOUNTER 2024-12-26 08:36 | Outpatient (CLI) | payer MEDICAID, SELFPAY ==
[2024-12-26 08:46] VITALS: BP 140/76; PULSE 64; RESP 16; TEMP 35.8; O2SAT 98
[2024-12-26] MEDS: 0.9% NaCl Peripheral Flush Adult IV (09:03)
[2024-12-26] MEDS: 0.9% NaCl IVPB Med Flush (100mL) 15 ML IV (09:06)
[2024-12-26] MEDS: DiphenhydrAMINE 50 MG/ML Syringe 25 MG IV (09:22)
[2024-12-26 09:32] LABS: Hematocrit 37.9 % (37-47); Hemoglobin 13.6 g/dL (12.0-15.0); Immature Granulocytes Count 0.020 X10^3/uL (0.0-0.0); Mean Corp Hgb Conc 35.9 g/dL (32-36); Mean Corpuscular Volume 91.5 fL (81-99); Mean Platelet Vol. 9.7 fl (6.2-12.0); NRBC Flagged by Analyzer 0 % (0-5); POSITIVE DIFFERENTIAL YES; Platelet Count 311 K/mm3 (150-450); RBC Distribution Width CV 12.6 % (11.6-14.6); RBC Distribution Width SD 42.0 fl (35.1-43.9); Red Blood Count 4.14 M/mm3 (4.2-5.4); White Blood Count 4.8 K/mm3 (4.4-11.0)
[2024-12-26] MEDS: Immune Globulin 20 gm 20 GM/200 ML VIAL IV (09:45)
[2024-12-26 10:04] LABS: AST(SGOT) 21 U/L (<=31); Alanine Aminotransfer ALT/SGPT 32 U/L (<=34); Albumin, Serum 2.3 g/dL (3.5-5.0); Alkaline Phosphatase 76 U/L (35-104); Anion Gap 9 (5-15); BUN 18 mg/dL (4-19); BUN/Creat Ratio 46.9 RATIO (10-20); Calcium,Total 7.0 mg/dL (7.6-11.0); Carbon Dioxide 18.4 mmol/L (21.0-32.0); Chloride 110 mmol/L (98-108); Globulin 1.6 g/dL (2.2-4.2); Glucose 181 mg/dL (70-99); Potassium 3.9 mmol/L (3.3-5.1)
[2024-12-26] MEDS: Immune Globulin 10 gm 10 GM/100 ML VIAL IV (12:37)
[2024-12-26] MEDS: Albumin Human 25% (100 mL) 25 GM/100 ML BAG IV (13:24)
[2024-12-26 15:01] VITALS: BP 126/65; PULSE 62; RESP 16; TEMP 36.2; O2SAT 99
[2024-12-27 04:07] LABS: Immunoglobulin G 450 mg/dL (586-1602)
== END 2024-12-26 23:59 | disposition home or self-care (01) ==
PROVIDERS: PCP Family Medicine; Referring Provider Internal Medicine; Visit Provider Internal Medicine
DX: D83.9 Common variable immunodeficiency, unspecified (principal); D80.1 Nonfamilial hypogammaglobulinemia; K90.49 Malabsorption due to intolerance, not elsewhere classified
CPT/HCPCS: 96365; 96366 ×3; 96367; 96375; 80053; 82784; 85025; 96372; P9047; A4216; J1568

== ENCOUNTER 2025-01-17 08:19 | Outpatient (CLI) | payer MEDICAID, SELFPAY ==
[2025-01-17 08:35] VITALS: BP 152/89; PULSE 67; RESP 16; TEMP 35.8; O2SAT 97; BMI 21.8
[2025-01-17] MEDS: Vedolizumab 300 MG in 0.9% Normal Saline (250mL Bag) 250 ML 500 MG IV (09:19)
[2025-01-17 10:09] VITALS: BP 111/60; PULSE 65; RESP 16; TEMP 36.2; O2SAT 97
== END 2025-01-17 23:59 | disposition home or self-care (01) ==
LOC: MEDOUTP 08:19
PROVIDERS: PCP Family Medicine; Referring Provider Internal Medicine; Visit Provider Internal Medicine
DX: K52.3 Indeterminate colitis (principal)
CPT/HCPCS: 96365; J3380

== ENCOUNTER 2025-01-23 08:19 | Outpatient (CLI) | payer MEDICAID, SELFPAY ==
[2025-01-23 08:29] VITALS: BP 115/73; PULSE 66; RESP 16; TEMP 35.6; O2SAT 98; BMI 21.2
[2025-01-23] MEDS: 0.9% NaCl Peripheral Flush Adult IV ×3 (08:38→13:17)
[2025-01-23] MEDS: 0.9% NaCl IVPB Med Flush (100mL) 15 ML IV (08:41)
[2025-01-23] MEDS: DiphenhydrAMINE 50 MG/ML Syringe 25 MG IV (09:01)
[2025-01-23] MEDS: Immune Globulin 20 gm 20 GM/200 ML VIAL IV (09:41)
[2025-01-23] MEDS: Immune Globulin 10 gm 10 GM/100 ML VIAL IV (12:18)
[2025-01-23] MEDS: Albumin Human 25% (100 mL) 25 GM/100 ML BAG IV (13:16)
[2025-01-23 14:48] VITALS: BP 117/74; PULSE 88; RESP 16; TEMP 35.9; O2SAT 97
== END 2025-01-23 23:59 | disposition home or self-care (01) ==
LOC: MEDOUTP 08:19
PROVIDERS: PCP Family Medicine; Referring Provider Internal Medicine; Visit Provider Internal Medicine
DX: D83.9 Common variable immunodeficiency, unspecified (principal); D80.1 Nonfamilial hypogammaglobulinemia; K90.49 Malabsorption due to intolerance, not elsewhere classified
CPT/HCPCS: 96365; 96366 ×3; 96367; 96375 ×2; P9047; A4216; J1568; J2405

== ENCOUNTER 2025-02-01 16:42 | Emergency (ER) | payer MEDICAID, SELFPAY ==
--- OUTSIDE RECORDS SUMMARY | 2024-12-12 10:00 | XMS RPT_ITS ---
Author Name Auto Generated Organization OHIP Support Name Relationship Address Phone NAY AMAYA Next of Kin Unknown Unavailable SENTHIL, SMITA Next of Kin [address] [place] [address] + SENTHIL, SMITA Next of Kin [address] [place] [address] + AMAYA, QUIRINO Next of Kin Unknown + JOSE LUIS, CACEE Next of Kin Unknown Unavailable SENTHIL, SMITA Next of Kin [address] [place] [address] + SENTHIL, SMITA Next of Kin [address] [place] [address] + AMAYA, QUIRINO Next of Kin Unknown + JOSE LUIS, CACEE Next of Kin Unknown Unavailable SENTHIL, SMITA Next of Kin [address] [place] [address] + SENTHIL, SMITA Next of Kin [address] [place] [address] + AMAYA, QUIRINO Next of Kin Unknown + AMAYA, CACEE Next of Kin Unknown Unavailable SENTHIL, SMITA Next of Kin [address] [place] [address] + SENTHIL, SMITA Next of Kin [address] [place] [address] + AMAYA, QUIRINO Next of Kin Unknown + JOSE LUIS, CACEE Next of Kin Unknown Unavailable SENTHIL, SMITA Next of Kin [address] [place] [address] + SENTHIL, SMITA Next of Kin [address] [place] [address] + AMAYA, QUIRINO Next of Kin Unknown + AMAYA, CACEE Next of Kin Unknown Unavailable SENTHIL, SMITA Next of Kin [address] [place] [address] + SENTHIL, SMITA Next of Kin [address] [place] [address] + AMAYA, QUIRINO Next of Kin Unknown + AMAYA, CACEE Next of Kin Unknown Unavailable SENTHIL, SMITA Next of Kin [address] [place] [address] + SENTHIL, SMITA Next of Kin [address] [place] [address] + AMAYA, QUIRINO Next of Kin Unknown + AMAYA, CACEE Next of Kin Unknown Unavailable SENTHIL, SMITA Next of Kin [address] [place] [address] + SENTHIL, SMITA Next of Kin [address] [place] [address] + AMAYA, QUIRINO Next of Kin Unknown + AMAYA, CACEE Next of Kin Unknown Unavailable SENTHIL, SMITA Next of Kin [address] [place] [address] + SENTHIL, SMITA Next of Kin [address] [place] [address] + AMAYA, QUIRINO Next of Kin Unknown + AMAYA, CACEE Next of Kin Unknown Unavailable SENTHIL, SMITA Next of Kin [address] [place] [address] + SENTHIL, SMITA Next of Kin [address] [place] [address] + AMAYA, QUIRINO Next of Kin Unknown + AMAYA, CACEE Next of Kin Unknown Unavailable SENTHIL, SMITA Next of Kin [address] [place] [address] + SENTHIL, SMITA Next of Kin [address] [place] [address] + AMAYA, QUIRINO Next of Kin Unknown + AMAYA, CACEE Next of Kin Unknown Unavailable SENTHIL, SMITA Next of Kin [address] [place] [address] + SENTHIL, SMITA Next of Kin [address] [place] [address] + AMAYA, QUIRINO Next of Kin Unknown + AMAYA, CACEE Next of Kin Unknown Unavailable SENTHIL, SMITA Next of Kin [address] [place] [address] + SENTHIL, SMITA Next of Kin [address] [place] [address] + AMAYA, QUIRINO Next of Kin Unknown + AMAYA, CACEE Next of Kin Unknown Unavailable SENTHIL, SMITA Next of Kin [address] [place] [address] + SENTHIL, SMITA Next of Kin [address] [place] [address] + AMAYA, QUIRINO Next of Kin Unknown + AMAYA, CACEE Next of Kin Unknown Unavailable SENTHIL, SMITA Next of Kin [address] [place] [address] + SENTHIL, SMITA Next of Kin [address] [place] [address] + AMAYA, QUIRINO Next of Kin Unknown + AMAYA, CACEE Next of Kin Unknown Unavailable SENTHIL, SMITA Next of Kin [address] [place] [address] + SENTHIL, SMITA Next of Kin [address] [place] [address] + AMAYA, QUIRINO Next of Kin Unknown + AMAYA, CACEE Next of Kin Unknown Unavailable SMITA NDIAYE Next of Kin [address] [place] [address] + SENTHILSMITA MONTGOMERY Next of Kin [address] [place] [address] + AMAYA, QUIRINO Next of Kin Unknown + AMAYA, CACEE Next of Kin Unknown Unavailable SMITA NDIAYE Next of Kin [address] [place] [address] + SMITA NDIAYE Next of Kin [address] [place] [address] + Care Team Providers Care Power Barker Operator Name Role Phone SHERRI MULLIGAN Referring Unavailable MIJANN, CAN A Attending Unavailable QUANG, TRINO Primary Care Unavailable SHERRI MULLIGAN Attending Unavailable QUANG, TRINO Primary Care Unavailable SELF, SELF Referring Unavailable QUANG, TRINO Primary Care Unavailable EDKERKALEBETI J Attending Unavailable DESIRE HIGGINS Referring Unavailable QUANG, TRINO Primary Care Unavailable KAITLYN, CHATHUR Referring Unavailable KAITLYN, CHATHUR Attending Unavailable SHERRI MULLIGAN Attending Unavailable SELF, SELF Referring Unavailable QUANG, TRINO Primary Care Unavailable MIELY, CAN A Attending Unavailable QUANG, TRINO Primary Care Unavailable SELF, SELF Referring Unavailable POLINA MARTIN Attending Unavailable SELF, SELF Referring Unavailable QUANG, TRINO Primary Care Unavailable MIELY, CAN A Referring Unavailable MIELY, CAN A Attending Unavailable QUANG, TRINO Primary Care Unavailable QUANG, TRINO Primary Care Unavailable MIELY, CAN A Referring Unavailable MIELY, CAN A Attending Unavailable QUANG, TRINO Primary Care Unavailable QUANG, TRINO Primary Care Unavailable JOSE LUNA Referring Unavailable JOSE LUNA Attending Unavailable QUANG, TRINO Primary Care Unavailable SELF, SELF Referring Unavailable JOSE LUNA Attending Unavailable QUANG, TRINO Primary Care Unavailable SELF, SELF Referring Unavailable JOSE LUNA Attending Unavailable MIELY, CAN A Attending Unavailable QUANGTRINO Primary Care Unavailable SELF, SELF Referring Unavailable QUANG, TRINO Primary Care Unavailable DESIRE HIGGINS Attending Unavailable SELF, SELF Referring Unavailable ABHINAVSHERRI LARIOS Roel Referring Unavailable JOVANNY PETTIT Attending Unavailable QUANG, TRINO Primary Care Unavailable ISAAK SHERRI Sevilla Attending Unavailable QUANG, TRINO Primary Care Unavailable SELF, SELF Referring Unavailable SELF, SELF Referring Unavailable POLINA MARTIN Attending Unavailable QUANG, TRINO Primary Care Unavailable PROBLEMS DATE TYPE CONDITION / CODE ATTENDING STATUS [facility] 5 Admitting diagnosis Lymphocytopenia / D72.810(ICD-10) ABHINAVBERNARDA LARIOSMARGARET Sevilla Active [facility] 5 Admitting diagnosis Pain in right knee / M25.561(ICD-10) ISAAK SHERRI T [facility] 5 Admitting diagnosis Pain in left knee / M25.562(ICD-10) SHERRI MULLIGAN Active [facility] 3 Admitting diagnosis Common variable immunodeficiency, unspecified / D83.9(ICD-10) SHERRI MULLIGAN Active [facility] 5 Admitting diagnosis Chronic sinusitis, unspecified / J32.9(ICD-10) CAN FAULKNER [facility] 5 Admitting diagnosis Unspecified cirrhosis of liver / K74.60(ICD-10) JOSE LUNA Active [facility] 5 Admitting diagnosis Chronic maxillary sinusitis / J32.0(ICD-10) CAN FAULKNER Active [facility] 3 Admitting diagnosis Deficiency of other specified B group vitamins / E53.8(ICD-10) JOSE LUNA Active [facility] 3 Admitting diagnosis Vitamin a deficiency, unspecified / E50.9(ICD-10) JOSE LUNA Active [facility] 5 Admitting diagnosis Other specified disorders of nose and nasal sinuses / J34.89(ICD-10) CAN FAULKNER Saeid Active [facility] 5 Admitting diagnosis Deviated nasal septum / J34.2(ICD-10) CAN FAULKNER [facility] 5 Admitting diagnosis Hypertrophy of nasal turbinates / J34.3(ICD-10) TAMIKAJANNGIRMACAN A [facility] 5 Admitting diagnosis Chronic rhinitis / J31.0(ICD-10) CAN FAULKNER [facility] 5 Admitting diagnosis Follow-up / 145() POLINA MARTIN [facility] 5 Admitting diagnosis Nasal congestion / R09.81(ICD-10) GIRMA FAULKNERADINA Breaux [facility] 5 Admitting diagnosis Acute sinusitis, unspecified / J01.90(ICD-10) CAN FAULKNER [facility] 5 Admitting diagnosis Other specified bacterial agents as the cause of diseases classified elsewhere / B96.89(ICD-10) CAN FAULKNER Saeid [facility] 3 Admitting diagnosis 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) SHERRI MULLIGAN [facility] 3 Admitting diagnosis Malabsorption due to intolerance, not elsewhere classified / K90.49(ICD-10) SHERRI MULLIGAN [facility] 5 Admitting diagnosis Unspecified infectious disease / B99.9(ICD-10) SHERRI MULLIGAN [facility] 5 Admitting diagnosis Irregular menstruation, unspecified / N92.6(ICD-10) SHERRI MULLIGAN [facility] 4 Admitting diagnosis Hypomagnesemia / E83.42(ICD-10) DESIRE HIGGINS [facility] 4 Admitting diagnosis Vitamin D deficiency, unspecified / E55.9(ICD-10) DESIRE HIGGINS [facility] 4 Admitting diagnosis Noninfective gastroenteritis and colitis, unspecified / K52.9(ICD-10) DESIRE HIGGINS [facility] 4 Admitting diagnosis Nausea / R11.0(ICD-10) DESIRE HIGGINS [facility] 3 Admitting diagnosis 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) DESIRE HIGGINS [facility] 4 Admitting diagnosis Personal history of pneumonia (recurrent) / Z87.01(ICD-10) [facility] 4 Admitting diagnosis Indeterminate colitis / K52.3(ICD-10) [facility] 3 Admitting diagnosis Dietary zinc deficiency / E60(ICD-10) [facility] 3 Admitting diagnosis Copper deficiency / E61.0(ICD-10) [facility] 3 Admitting diagnosis Deficiency of vitamin E / E56.0(ICD-10) [facility] 3 Admitting diagnosis Deficiency of vitamin K / E56.1(ICD-10) [facility] PROCEDURES No Procedure Records Found RESULTS CT SINUSES WITHOUT CONTRAST Observed: 4:31 PM Status: F Source: [facility] EXAM: CT SINUSES WITHOUT CON TRAST, 08/28/2024 12:26 PM COMPARISON: No prior studies available for comparison. CLINICAL INDICATIONS: 38 years Female Sinusitis, chronic or recurrent; Intraoperatvie use. PLEASE DO IMAGE GUIDANCE PROTOCOL and TAKE MASK OFF PATIENT if present.; chronic/ recurrent sinusitis RELEVANT CLINICAL HISTORY: J32.0:Chronic maxillary sinusitis IMAGE GUIDANCE PROTOCOL;;IMAGE GUIDANCE PROTOCOL;;PLEASE REMOVE MASK; TECHNIQUE: A series of transaxial thin section multislice computerized tomographic images are obtained through the level of the paranasal sinuses without IV contrast. Coronal, sagittal and axial reformats are provided. FINDINGS: SINUSES: Frontal sinuses: Well-developed. Clear. Frontal recesses: Patent. Ethmoid sinuses: Well-developed. Clear. Lamina papyracea: Intact. Sphenoid sinus: Well-developed. Clear. Sphenoethmoidal recesses: Patent. Maxillary sinuses:Well-developed. There is prominent mucosal thickening involving the inferior aspect of the left maxillary sinus. There is moderately horizontal angulation of the maxillary infundibula bilaterally, most pronounced on the left. Ostiomeatal units: Patent. NASAL CAVITY: Right-sided nasal septal deviation is noted. There is hypertrophic appearance of the left inferior turbinate. Anterior skull base structures are intact. Visualized portions of the mastoid air cells are well-aerated. Temporomandibular joints appear within normal limits. Posterior instrumented fusion of the cervical spine. There is also fusion of C1-C2. SOFT TISSUES: Assessment of the intracranial soft tissues is suboptimal secondary to low-dose technique. No significant intracranial or facial soft tissue finding noted at the visualized levels. IMPRESSION: Rightward nasal septal deviation with mildly horizontal angulation of the maxillary infundibula bilaterally, most pronounced on the left. There is also prominent mucosal thickening along the inferior aspect of the left maxillary sinus. No air-fluid level to suggest acute sinusitis. Hypertrophic appearance of the left inferior turbinate. ABDOMEN RUQ/LIVER/GB Observed: 2024 1:33 PM Status: F Source: [facility] EXAM: US ABDOMEN RUQ/LIVER/G B, 08/28/2024 12:13 PM CLINICAL INDICATIONS: cirrhosis Screening for HCC; K74.60:Cirrhosis of liver without ascites, unspecified hepatic cirrhosis type COMPARISON: November 30, 2023 CT TECHNIQUE: Real-time ultrasound evaluation of the right upper quadrant was performed utilizing a curved array transducer. Duplex scan is performed. Color flow images and spectral waveforms obtained. FINDINGS: Pancreas: Normal. Liver: Visualization: VIS-A (No or minimal limitations). Liver appearance: Steatotic with mildly nodular contour. Liver observations: None. Liver Doppler: Portal veins: Patent with normal hepatopetal flow. Portal vein velocity: 26.6 cm/sec. Bile ducts: No intrahepatic biliary ductal dilation. Common duct: 4 mm in diameter. Gallbladder: Normal. Right Kidney: Normal, no hydronephrosis. Length is 9.3 cm. Ascites: None. IMPRESSION: 1. Mild hepatic steatosis with mild cirrhotic morphology. 2. No focal hepatic lesion. 3. US-1 (Negative). 3. VIS-A (No or minimal limitations). 4. Recommend routine 6 month ultrasound surveillance. I personally viewed and interpreted these images and I have reviewed and approved this report. YLMALONIC ACID Collected: 5 11:36 AM Status: F Source: [facility] TYPE CODE TESTS RESULT OUT OF RANGE REFERENCE UNITS LAB 2657 METHYLMALONIC ACID 0.18 <=0.40 nmol/mL Result Comment: ADDITIONAL INFORMATION This test was developed and its performance characteristics determined by [facility] in a manner consistent with CLIA requirements. This test has not been cleared or approved by the U.S. Food and Drug Administration. Test Performed by: [facility] [place] [address] [employer] Curator: Leona Alan Ph.D.; CLIA# [id number] Performed By: #### YMMA #### [facility] ([facility]) [address] [place] [address] VITAMIN E Collected: 5 11:36 AM Status: F Source: [facility] TYPE CODE TESTS RESULT OUT OF RANGE REFERENCE UNITS LAB 1841 VITAMIN E, SERUM 7.5 5.5-17.0 mg/L Result Comment: ADDITIONAL INFORMATION This test was developed and its performance characteristics determined by [facility] in a manner consistent with CLIA requirements. This test has not been cleared or approved by the U.S. Food and Drug Administration. Test Performed by: [facility] [place] [address] [employer] Curator: Leona Alan Ph.D.; CLIA# [id number] Performed By: #### SMITATE ### # [facility] (DEFAULT) [address] [place] [address] VITAMIN A Collected: 11:36 AM Status: F Source: [facility] TYPE CODE TESTS RESULT OUT OF RANGE REFERENCE UNITS LAB 1833 FREE RETINOL (VIT A) 48.5 32.5-78.0 mcg/dL Result Comment: ADDITIONAL INFORMATION This test was developed and its performance characteristics determined by [facility] in a manner consistent with CLIA requirements. This test has not been cleared or approved by the U.S. Food and Drug Administration. Test Performed by: [facility] [place] [address] [employer] Curator: Leona Alan Ph.D.; CLIA# [id number] Performed By: #### ALETHA ### # [facility] (DEFAULT) [address] [place] [address] CBC AND ELECTRONIC DIFF Collected: 07/2024 11:36 AM Status: F Source: [facility] TYPE CODE TESTS RESULT OUT OF RANGE REFERENCE UNITS LAB [id number] WBC Count 6.03 3.99-11.19 K/uL LAB [id number] RBC Count 4.07 3.91-5.04 M/uL LAB [id number] Hemoglobin 13.2 11.4-15.2 g/dL LAB [id number] Hematocrit 38.1 34.9-44.3 % LAB [id number] Mean Cell Volume 93.6 79.6-97.7 fL LAB [id number] Mean Cell Hgb 32.4 25.9-33.9 pg LAB [id number] Mean Cell Hgb Conc 34.6 31.4-35.9 g/dL LAB [id number] RBC Distribution 12.3 10.8-14.9 % LAB [id number] Platelet Count 371 150-393 K/uL LAB [id number] Mean Platelet Volume 10.1 8.5-12.2 fL LAB [id number] DIFF STATUS Electronic Differential LAB [id number] Segs + Bands Auto 77.8 % LAB [id number] Immature Grans % 0.5 % LAB [id number] Lymphocyte % Auto 10.1 % LAB [id number] Monocyte % Auto 7.1 % LAB [id number] Eosinophil % Auto 4.0 % LAB [id number] Basophil % Auto 0.5 % LAB [id number] Nucleated RBC 0.0 <=0.2 /100 WB C LAB [id number] Segs + Bands,Absolute Auto 4.69 1.64-7.28 K/uL LAB [id number] Immature Grans Absolute < <=0.08 K/uL LAB [id number] Abs Lymph Auto 0.61 Low 1.16-3.51 K/uL LAB [id number] Abs Bradford Auto 0.43 0.22-0.87 K/uL LAB [id number] Abs Eos Auto 0.24 0.00-0.42 K/uL LAB [id number] Abs Baso Auto < 0.00-0.15 K/uL Performed By: #### [id number] ## ## [facility] (DEFAULT) [address] [place] [address] VITAMIN B12 Collected: 11:36 AM Status: F Source: [facility] TYPE CODE TESTS RESULT OUT OF RANGE REFERENCE UNITS LAB [id number] Vitamin B12 717 211-911 pg/mL Result Comment: Testing of M ethylmalonic Acid and Intrinsic Factor Blocking Antibody are recommended if clinical suspicion for pernicious anemia due to B12 deficiency is high for patients with intermediate B12 levels (211 to 400 pg/mL) to rule out spurious heterophile antibodies. Performed By: #### B12B #### [facility] (DEFAULT) [address] [place] [address] HEPATIC FUNCTION PANEL Collected: 08/08 11:36 AM Status: F Source: [facility] TYPE CODE TESTS RESULT OUT OF RANGE REFERENCE UNITS LAB [id number] Albumin 2.2 Low 3.5-5.0 g/dL LAB [id number] Bilirubin Direct < <0.3 mg/dL LAB [id number] Bilirubin Total 0.1 <1.5 mg/dL LAB [id number] ALP 55 32-126 U/L LAB [id number] ALT 20 9-48 U/L LAB [id number] AST 16 10-39 U/L LAB [id number] Total Protein 4.1 Low 6.4-8.3 g/dL Performed By: #### ERICK, SANGITA6 , MGO #### [facility] (DEFAULT) [address] [place] [address] CHEM 6 (LYTES, BUN CREA) Collected: 07/2024 11:36 AM Status: F Source: [facility] TYPE CODE TESTS RESULT OUT OF RANGE REFERENCE UNITS LAB [id number] BUN 20 7-25 mg/dL LAB [id number] Sodium 136 135-145 mmol/L LAB [id number] Potassium 4.0 3.5-5.0 mmol/L LAB [id number] Chloride 109 High 98-108 mmol/L LAB [id number] CO2 20 Low 21-31 mmol/L LAB [id number] Creatinine 0.47 Low 0.50-1.20 mg/dL LAB [id number] Bun/Crea Ratio 43 LAB [id number] Anion Gap 11 7-17 mmol/L LAB [id number] eGFR, CKD-EPI, Female > >=60 mL/min/1. 73m2 Result Comment: Reported eGF R is based on the CKD-EPI 2020 equation using creatinine, age, and sex. Performed By: #### ERICK, SANGITA6 , MGO #### [facility] (DEFAULT) [address] [place] [address] MAGNESIUM Collected: 11:36 AM Status: F Source: [facility] TYPE CODE TESTS RESULT OUT OF RANGE REFERENCE UNITS LAB [id number] Magnesium 2.1 1.6-2.6 mg/dL Performed By: #### ERICK, FERNANDAM6 , MGO #### [facility] (DEFAULT) [address] [address] COPPER Collected: 11:36 AM Status: F Source: [facility] TYPE CODE TESTS RESULT OUT OF RANGE REFERENCE UNITS LAB 103 Copper 32 Low 77-206 mcg/dL Result Comment: ADDITIONAL INFORMATION This test was developed and its performance characteristics determined by [facility] in a manner consistent with CLIA requirements. This test has not been cleared or approved by the U.S. Food and Drug Administration. Test Performed by: [facility] [address] [place] [address] [employer] Curator: Leona Alan Ph.D.; CLIA# [id number] Performed By: #### YCOPP ### # [facility] (DEFAULT) [address] [place] [address] VITAMIN D (25-HYDROXY,TOTAL) Collected: 08/08/2024 11:35 AM Status: F Source: [facility] Order Comment: Vitamin D yasmeen ues have been shown to be falsely decreased in lipemic samples and should be interpreted with caution. TYPE CODE TESTS RESULT OUT OF RANGE REFERENCE UNITS LAB [id number] 25-OH Vitamin D Total 22.4 Low 30.0-100.0 ng/mL Result Comment: <10 Deficien cy 10-29 Insufficiency 30-100 Optimal Level >100 Possible Toxicity Performed By: #### D25OH ### # [facility] (DEFAULT) [address] [place] [address] AFP TUMOR MARKER Collected: 11:35 AM Status: F Source: [facility] TYPE CODE TESTS RESULT OUT OF RANGE REFERENCE UNITS LAB [id number] AFP Tumor Marker <2.2 <8.1 ng/mL Result Comment: This test wa s performed on the Go Try It On IM Immunoassay platform by [employer] which is a two-site sandwich chemiluminescent immunoassay. It is important to note that assays using different manufacturers and/or methods may not be comparable. Performed By: #### AFPTMR ## ## [facility] (DEFAULT) [address] [place] [address] PROTIME-INR Collected: 11:35 AM Status: F Source: [facility] TYPE CODE TESTS RESULT OUT OF RANGE REFERENCE UNITS LAB [id number] PT 12.9 11.9-14.2 sec LAB [id number] INR 1.0 0.9-1.1 Performed By: #### PTI #### [facility] (DEFAULT) [address] [place] [address] ZINC, SERUM Collected: 11:35 AM Status: F Source: [facility] TYPE CODE TESTS RESULT OUT OF RANGE REFERENCE UNITS LAB 132 ZINC, SERUM 58 Low 60-106 mcg/dL Result Comment: ADDITIONAL INFORMATION This test was developed and its performance characteristics determined by [facility] in a manner consistent with CLIA requirements. This test has not been cleared or approved by the U.S. Food and Drug Administration. Test Performed by: [place] [address] [employer] Curator: Leona Alan Ph.D.; CLIA# [id number] Performed By: #### YZILISANDRO ### # [facility] (DEFAULT) [address] [place] [address] IMMUNOPHENOTYPING Collected: 06/13/2024 12:26 PM Sta tus: F Source: [facility] TYPE CODE TESTS RESULT OUT OF RANGE REFERENCE UNITS LAB [id number] BKR DX CODE Use Ordering LAB [id number] Flow Interpreted by: Atul Carrasco MD LAB SAMPLE TYPE SAMPLE TYPE Peripheral Blood LAB [id number] IMMUNOPHENOTYPIN G FLOW See Scanned Result Performed By: #### IMMUNOPHE NOTYPING #### [facility] (DEFAULT) [address] [place] [address] IMMUNOGLOBULINS IGG IGA IGM Collected: 06/13/2024 12:26 PM Status: F Source: [facility] TYPE CODE TESTS RESULT OUT OF RANGE REFERENCE UNITS LAB [id number] IGG 528 Low 600-1714 mg/dL LAB [id number] IgA 52 Low 66-433 mg/dL LAB [id number] IGM 31 Low 45-281 mg/dL Performed By: #### QIMM #### [facility] (DEFAULT) [address] [place] [address] VITAMIN B6 Collected: 3:21 PM Status: F Source: [facility] TYPE CODE TESTS RESULT OUT OF RANGE REFERENCE UNITS LAB 3851 VITAMIN B6 8 5-50 mcg/L Result Comment: ADDITIONAL INFORMATION This test was developed and its performance characteristics determined by [facility] in a manner consistent with CLIA requirements. This test has not been cleared or approved by the U.S. Food and Drug Administration. Test Performed by: [facility] [place] [address] [employer] Curator: Leona Alan Ph.D.; CLIA# [id number] Performed By: #### [id number] ## ## [facility] (DEFAULT) [address] [place] [address] VITAMIN E Collected: 3:21 PM Status: F Source: [facility] TYPE CODE TESTS RESULT OUT OF RANGE REFERENCE UNITS LAB 1841 VITAMIN E, SERUM 4.0 Low 5.5-17.0 mg/L Result Comment: ADDITIONAL INFORMATION This test was developed and its performance characteristics determined by [facility] in a manner consistent with CLIA requirements. This test has not been cleared or approved by the U.S. Food and Drug Administration. Test Performed by: [facility] [place] [address] [employer] Curator: Leona Alan Ph.D.; CLIA# [id number] Performed By: #### YVITE ### # [facility] (DEFAULT) [address] [place] [address] M TUBERCULOSIS BY QUANTIFERO N, BLD Collected: 03/21/2024 3:20 PM Status: F Source: [facility] Order Comment: The M. Tuberc ulosis antigen levels cannot be correlated to stage or degree of infection, response to therapy or likelihood for progression to active disease. Results from QuantiFERON TB Gold Plus must be used in conjunction with individual epidemiological history, current medical status, and results of other diagnostic evaluation. TYPE CODE TESTS RESULT OUT OF RANGE REFERENCE UNITS LAB [id number] M. Tuberculosis by Quantiferon in tube Negative Negative LAB [id number] M. TB TB1-Nil 0.00 IU/mL LAB [id number] M. TB TB2-Nil 0.01 IU/mL LAB [id number] M. TB Mitogen-Nil 2.94 IU/mL LAB [id number] M. TB Nil 0.00 IU/mL Performed By: #### QFTB #### [facility] (DEFAULT) [address] [place] [address] MAGNESIUM Collected: 3:20 PM Status: F Source: [facility] TYPE CODE TESTS RESULT OUT OF RANGE REFERENCE UNITS LAB [id number] Magnesium 1.6 1.6-2.6 mg/dL Performed By: #### MGO #### [facility] (DEFAULT) [address] [place] [address]22 ZINC, SERUM Collected: 3:20 PM Status: F Source: [facility] TYPE CODE TESTS RESULT OUT OF RANGE REFERENCE UNITS LAB 132 ZINC, SERUM 49 Low 60-106 mcg/dL Result Comment: ADDITIONAL INFORMATION This test was developed and its performance characteristics determined by [facility] in a manner consistent with CLIA requirements. This test has not been cleared or approved by the U.S. Food and Drug Administration. Test Performed by: [facility] - [address] [address] [employer] Curator: Leona Alan Ph.D.; CLIA# [id number] Performed By: #### YZILISANDRO ### # [facility] (DEFAULT) [address] [place] [address]504 HEPATITIS BATTERY, CHRONIC Collected: 05/21/2023 3:20 PM Status: F Source: [facility] TYPE CODE TESTS RESULT OUT OF RANGE REFERENCE UNITS LAB [id number] Hepatitis B Surface Ag Negative Negative LAB [id number] Hep B Surface Ab Positive Abnormal Negative Result Comment: A positive r esult indicates immunity through past immunization or prior infection. LAB [id number] Hep B Core Ab,Total (IgG+IgM) Negative Negative LAB [id number] Hepatitis C Antibody Negative Negative Performed By: #### HEP3B ### # [facility] (DEFAULT) [address] [address] COPPER Collected: 3:20 PM Status: F Source: [facility] TYPE CODE TESTS RESULT OUT OF RANGE REFERENCE UNITS LAB 103 COPPER, SERUM 67 Low 77-206 mcg/dL Result Comment: ADDITIONAL INFORMATION This test was developed and its performance characteristics determined by [facility] in a manner consistent with CLIA requirements. This test has not been cleared or approved by the U.S. Food and Drug Administration. Test Performed by: [facility] [address] [place] [address] [employer] Curator: Leona Alan Ph.D.; CLIA# [id number] Performed By: #### YCOPP ### # [facility] (DEFAULT) [address] [place] [address] VITAMIN D (25-HYDROXY,TOTAL) Collected: 03/21/2024 3:20 PM Status: F Source: [facility] Order Comment: Vitamin D yasmeen ues have been shown to be falsely decreased in lipemic samples and should be interpreted with caution. TYPE CODE TESTS RESULT OUT OF RANGE REFERENCE UNITS LAB [id number] 25-OH Vitamin D Total 19.3 Low 30.0-100.0 ng/mL Result Comment: <10 Deficien cy 10-29 Insufficiency 30-100 Optimal Level >100 Possible Toxicity Performed By: #### D25OH ### # [facility] (DEFAULT) [address] [place] [address]443 VITAMIN A Collected: 4 3:20 PM Status: F Source: [facility] TYPE CODE TESTS RESULT OUT OF RANGE REFERENCE UNITS LAB 1833 FREE RETINOL (VIT A) 57.2 32.5-78.0 mcg/dL Result Comment: ADDITIONAL INFORMATION This test was developed and its performance characteristics determined by [facility] in a manner consistent with CLIA requirements. This test has not been cleared or approved by the U.S. Food and Drug Administration. Test Performed by: [facility] [place] [address] [employer] Curator: Leona Alan Ph.D.; CLIA# [id number] Performed By: #### YVITA ### # [facility] (DEFAULT) [address] [place] [address] VITAMIN K, SERUM Collected: 4 3:20 PM Status: F Source: [facility] TYPE CODE TESTS RESULT OUT OF RANGE REFERENCE UNITS LAB 4729 VITAMIN K1,SERUM 0.18 0.10-2.20 ng/mL Result Comment: ADDITIONAL INFORMATION This test was developed and its performance characteristics determined by [facility] in a manner consistent with CLIA requirements. This test has not been cleared or approved by the U.S. Food and Drug Administration. Test Performed by: [place] [address] [employer] Curator: Leona Alan Ph.D.; CLIA# [id number] Performed By: #### YVITK1 ## ## [facility] (DEFAULT) [address] [place] [address] ALLERGIES No Allergies Records Found ENCOUNTERS ADMIT/DISCHARGE ACCOUNT NUMBER ADMITTING ENCOUNTER CLASS LOC ATION SOURCE 12/12/2024 [id number] [facility] g:ALLWES [facility] 09/04/2024 [id number] [facility] g:OCDOTO [facility] 08/28/2024 [id number] [facility] g:GICINDITD [facility] 08/28/2024 [id number] [facility] HOSPITALBuildin g:LBGIC [facility] 08/28/2024 [id number] [facility] HOS[facility]ITALBuild[facility] g:GICULS [facility] 08/28/2024 [id number] [facility] HOSPITALBuild[facility] g:ONACTD [facility] 08/08/2024 [id number] [facility] HOSPITALBuildin g:HILLAB [facility] 08/08/2024 [id number] [facility] [id number] [facility]/20/2024 [id number] [facility] HOSPITALBuildin g:[facility] 06/18/2024 [id number] [facility] HOSPITALBuildin g:OCDOTO [facility] 06/13/2024 [id number] [facility]PITALBuild[facility] g:[facility] 06/13/2024 [id number] [facility] HOSPITALBuildin g:[facility] 04/18/2024 [id number] [facility] HOSPITALBuildin g:GHNGAS [facility] 04/10/2024 [id number] [facility] HOSPITALBuildin g:[facility] 03/21/2024 [id number] [facility] HOSPITALBuildin g:[facility] 03/21/2024 [id number] [facility] HOSPITALBuildin g:ONACCG [facility] 03/19/2024 [id number] [facility] HOSPITALBuildin g:[facility] PAYERS ENCOUNTER GUARANTOR PAYER SUBSCRIBER SOURCE 12/12/2024 NAY GUTIERREZOB: [id number] [place], [place] [address]Mit: () [facility] [place] Number: [id number] ve Date:6919-06-52Igkt Name:URI Lucero PAYNEDOB: [id number] [place] [id number] [place] [address] 09/04/2024 NAY Lucero PAYNEDOB: [place], [place] [address]Pcj: (HP) Primary Insurance:[place]AS [place]: [id number] ve Date:0049-83-27Wtvz Name:URI Lucero PAYNEDOB: [id number] [place], [place] [address] [place] [address] 08/28/2024 NAY Lucero PAYNEDOB: [place], [place] [address]Izi: () Primary Insurance:[place]AL [place]: [id number] ve Date:9924-06-77Ffvs Name:URI Lucero PAYNEDOB: [id number] [place], [place] [address] [place] [address] 08/28/2024 NAY Lucero PAYNEDOB: [place], [place] [address]Amr: () Primary Insurance:AMERIHEAL CARITAS [place] Number: [id number] ve Date:0098-73-52Srjl Name:URI Lucero PAYNEDOB: [id number] [place] [address] [facility] 08/28/2024 CACWILL C PAYNEDOB: [place], [place] [address]Thj: () Primary Insurance:AMERIHEAL CARITAS [facility] Number: [id number] ve Date:0955-42-19Frek Name:URI Lucero PAYNEDOB: [id number] [place], [place] [address] [place] [address] 08/28/2024 CACEE C PAYNEDOB: [place], [place] [address]Qjb: () [facility] Number: [id number] ve Date:8077-97-40Fpgj Name:URI Lucero PAYNEDOB: [id number] [place], [place] [address] [place] [address] 08/08/2024 CACEE C PAYNEDOB: [place], [place] [address]Ooo: () [facility] [place] Number: [id number] ve Date:5284-06-05Sbha Name:URI Lucero PAYNEDOB: [id number] [place], [place] [address] [place] [address] 08/08/2024 CACEE C PAYNEDOB: [place], [place] [address]Exd: () [facility] MAR[facility]INV[facility] Number: [id number] ve Date:9914-94-69Afcm Name:URI Lucero PAYNEDOB: [id number] [place], [place] [address] [place] [address] 07/31/2024 CACEE C PAYNEDOB: [place], [place] [address]Xeb: (HP) Primary Insurance:[facility] [place] Number: [id number] ve Date:5092-44-28Sbya Name:URI Lucero PAYNEDOB: [id number] [place] [address] [facility] 06/20/2024 CACWILL Lucero PAYNEDOB: [place], [place] [address]Mpo: (HP) Primary Insurance:[facility] [place] Number: [id number] ve Date:7667-98-56Uwfb Name:URI Lucero PAYNEDOB: [id number] [place], [place] [address] [place] [address] 06/18/2024 NAY Lucero PAYNEDOB: [place], [place] [address]Jke: (HP) Primary Insurance:[facility] [place] Number: [id number] ve Date:5786-54-16Avaa Name:URI Lucero PAYNEDOB: [id number] [place], [place] [address] [place] [address] 06/13/2024 CACWILL Lucero PAYNEDOB: [place], [place] [address]Nzy: (HP) Primary Insurance:[facility] [place] Number: [id number] ve Date:5058-26-10Wnsm Name:URI Lucero PAYNEDOB: [id number] [place] [address] [facility] 06/13/2024 CACEE C PAYNEDOB: [place], [place] [address]Tba: (HP) Primary Insurance:[facility] Number: [id number] ve Date:3517-56-19Oabw Name:URI Lucero PAYNEDOB: [id number] [place] [address] [facility] 04/18/2024 NAY Lucero PAYNEDOB: [place], [place] [address]Xsr: (HP) Primary [facility] Number: [id number] ve Date:0393-11-95Gmst Name:URI Lucero PAYNEDOB: [id number] [place], [place] [address]Bme: (HP) [facility] 04/10/2024 NAY Lucero PAYNEDOB: [place], [place] [address]Ktg: (HP) Primary Insurance:[facility] Number: [id number] ve Date:5815-11-44Zmea Name:URI Lucero PAYNEDOB: [id number] [place], [place] [address]Hjr: (HP) [facility] 03/21/2024 NAY Lucero PAYNEDOB: [place], [place] [address]Maz: (HP) Primary Insurance:[facility] Number: [id number] ve Date:0007-13-00Zbwf Name:URI Lcuero PAYNEDOB: [id number] [place], [place] [address]Fvs: (HP) [facility] 03/21/2024 NAY Lucero PAYNEDOB: [place], [place] [address]Gdh: (HP) Primary [facility] CAR[facility]AS [facility] Number: [id number] ve Date:2176-58-72Yxoh Name:URI Lucero PAYNEDOB: [id number] [place], [place] [address]Jxy: () [facility] 03/19/2024 NAY Lucero PAYNEDOB: [id number] [place], [place] [address]Azl: (HP) Primary Insurance:[facility] [place] Number: [id number] ve Date:1058-67-80Hoes Name:URI Lucero PAYNEDOB: [id number] [place], [place] [address]Onr: () [facility]
[2025-02-01 16:43] VITALS: BP 185/98; PULSE 63; RESP 18; TEMP 35.7; O2SAT 95; BMI 23.2
--- NOTE | 2025-02-01 17:02 | EDS_ITS ---
HPI History of Present Illness Chief Complaint: Laceration Informant: patient Narrative Narrative: Patient is a 39-year-old female with history of CVID, seizures and xfjpw-cpsb-wfqymlcf presenting with laceration to her left thumb. She was using a box lining machine feeder to open up packaging and accidentally cut her left thumb. She had immediate bleeding. Came in for further evaluation. Denies associated numbness or tingling. No other injuries reported. States her last tetanus was earlier this year. Tetanus Immunization: <5 years [facility] Medical History Wears glasses Depression Anxiety Diabetes Fatty liver Cirrhosis Easy bruising Restless legs Seizures Chronic diarrhea Gastric reflux Non-smoker Shortness of breath on exertion Leg cramps History of pain when walking History of edema Bowel obstruction CVID (common variable immunodeficiency) Ascites Liver disease Malabsorption due to intolerance, not elsewhere classified Abdominal pain Diarrhea Protein deficiency Home Medications ?Medication ?Instructions ?Recorded ?Last Taken ?Type hyoscyamine sulfate 0.125 mg 0.125 mg PO TID PRN abdom ial pin 01/17/21 05/20/22 Rx tablet (Levsin) #30 tabs sertraline 50 mg tablet 50 mg PO QHS MOOD/ANXIETY 05/19/22 History copper gluconate 2 mg capsule 2 mg PO DAILY supplement 08/28/23 Unknown History cyanocobalamin (vitamin B-12) 1,000 mcg PO DAILY vitam in 08/28/23 Unknown History 1,000 mcg capsule diphenoxylate-atropine 2.5 2 tab PO Q6H diarrhea 08/27 Unknown History mg-0.025 mg tablet epinephrine 0.3 mg/0.3 mL 0.3 mg IM PRN allergies 08/07 07/01 Unknown History injection, auto-injector human serum albumin diluent 0.03 % ml .Route 08/28/23 Unknown History injection solution immune globulin (human) (IgG) 10 10 g IV QMONTH Unknown History gram intravenous solution levonorgestrel (Mirena) 1 device intrauterine ONCE 0 08/28/23 Unknown History magnesium L-lactate 84 mg 84 mg PO TID supplement 08/07 07/01 Unknown History tablet,extended release multivitamin 1 tab PO DAILY vitamin 08/27 Unknown History vitamin B complex 1 cap PO DAILY vitamin 08/27 Unknown History ondansetron HCl 4 mg tablet 4 mg PO Q8H PRN PRN nausea /vomiting 11/18/23 Unknown History sulfamethoxazole 800 1 tab PO MOWEFR 11/18/23 Unk nown History mg-trimethoprim 160 mg tablet torsemide 20 mg tablet 40 mg PO BID 01/12/24 Unknow n History spironolactone 100 mg tablet 50 mg PO QAM 08/09/24 Unk nown History fluticasone propionate 50 2 spray intranasal DAILY Unknown History mcg/actuation nasal spray,suspension levothyroxine 25 mcg tablet 25 mcg PO DAILY 10/31/24 U nknown History cephalexin 500 mg capsule 500 mg PO Q8H 5 days #15 CAP SULES 02/01/25 Unknown Rx cholecalciferol (vitamin D3) 125 125 mcg PO DAILY 01/07 11/29 Unknown History mcg (5,000 unit) capsule ergocalciferol (vitamin D2) 1,250 1,250 mcg PO QWEEK 0 02/01/25 Unknown History mcg (50,000 unit) capsule meloxicam 15 mg tablet 15 mg PO DAILY 02/01/25 Unkn own History multivit-minerals no.53-FA 200 1 cap PO 02/01/25 Unkno wn History mcg-vit K 1,000 mcg-coQ10 10 mg capsule (DEKAs Plus (folic acid)) Allergy/AdvReac Type Severity Reaction Status Date / Time adhesive tape Allergy Swelling Verified 02/01/25 16:43 hydrocodone Allergy Angioedema Verified 02/01/25 16:43 metformin Allergy Diarrhea Verified 02/01/25 16:43 oxycodone Allergy Angioedema Verified 02/01/25 16:43 guaifenesin (From Mucinex) AdvReac Other Verified 02/01/25 16:43 Family History Father Diabetes Mother Diabetes Surgical History Status post hysteroscopy (~10/01/24) H/O dilation and curettage Hx of myringotomy History of vascular access device H/O neck surgery H/O section Social History household members: spouse number of children: 4 current occupation: [employer] Smoking Status: Never smoker alcohol intake: never substance use type: does not use seatbelt use: always do you feel safe at home: Yes 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 ROS ED Constitutional Constitutional ED: Denies chills or fever(s) Musculoskeletal Musculoskeletal: Reports other Details: Left thumb pain Integumentary Reports other Details: Laceration to the left Neurologic Neurologic: Denies paresthesias or weakness Hematologic/Lymphatic Hematologic/Lymphatic: Reports easy bleeding and other Details: Denies being on any anticoagulants but states she bleeds easily because of her CVID EXAM Physical Exam Const Vital Signs: 02/01/25 16:43 Temperature 96.3 F L Temperature Source Temporal Pulse Rate 63 Respiratory Rate 18 Blood Pressure 185/98 H Blood Pressure Mean 127 Pulse Ox 95 Oxygen Delivery Method Room Air Positive well nourished and well developed General Appearance ED: well developed and NAD HEENT normocephalic and atraumatic Chest Wall inspection of chest normal Resp normal respiratory effort Cardio regular rate and regular rhythm Extremity normal to inspection and full ROM Extremity Narrative: Normal flexion and extension of the left thumb. No deformity. Neuro oriented x3, moves all extremities, no focal motor deficits and no sensory deficits noted Sensorium / Orientation: alert Psych mental status grossly normal Skin Skin Narrative: 2.5 cm slightly irregular full-thickness laceration of the palmar aspect of the left running vertically. Actively oozing blood. MDM MDM MDM Narrative Medical decision making narrative: Patient valuated for laceration to her left thumb. Tetanus already up-to-date. Normal range of motion and low suspicion for any acute tendon injury. No deformity and based on maximal suspicion for underlying fracture or retained foreign body. X-ray considered but do not think necessary at this time. Laceration repair will be performed. Patient given wound care precautions. Counseled sutures need to come out in approximately 10 days. While suturing patient we discussed further about antibiotics. Patient would feel more comfortable with prophylactic antibiotics due to her immunodeficiency and her most recent IgG levels were lower. Will put her on prophylactic Keflex. 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 Procedures Lacerations left thumb : Length: 0.98 in Depth: Skin Shape: Linear Prep: Terry Laceration repair: Irrigated, Lidocaine, Nerve block and Skin sutures Irrigated (ml): 200 Number of Sutures/Sandeep: 4 Suture Information: Ethilon, Simple and 4-0 Discharge Plan Triage Chief Complaint: Laceration ED Provider: Cathy Castellon Dx/Rx/DC Orders Clinical Impression: Laceration of left thumb Instructions: ED Laceration Extremity Prescriptions: New cephalexin 500 mg capsule 500 mg PO Q8H 5 Days Qty: 15 0RF No Action copper gluconate 2 mg capsule 2 mg PO DAILY diphenoxylate-atropine 2.5-0.025 mg tablet 2 tab PO Q6H magnesium L-lactate 84 mg tablet extended release 84 mg PO TID immune globulin (human) (IgG) 10 gram recon soln 10 g IV QMONTH Rx Instructions: 10 grams intravenously; IV every 30 days 100ml epinephrine 0.3 mg/0.3 mL auto-injector 0.3 mg IM PRN Rx Instructions: 0.3 mg intramuscularly; vitamin B complex Capsule 1 cap PO DAILY multivitamin Tablet 1 tab PO DAILY cyanocobalamin (vitamin B-12) 1,000 mcg capsule 1,000 mcg PO DAILY Mirena 21 mcg/24 hours (8 yrs) 52 mg intrauterine device 1 device intrauterine ONCE Rx Instructions: as a single dose human serum albumin diluent 0.03 % solution .Route Patient Comments: pt supposed to get it 11/23/23 Rx Instructions: IV fusion- monthly- dose not sure spironolactone 100 mg tablet 50 mg PO QAM hyoscyamine sulfate [Levsin] 0.125 mg tablet 0.125 mg PO TID PRN (Reason: abdomial pin) Qty: 30 0RF sertraline 50 mg tablet 50 mg PO QHS ondansetron HCl 4 mg tablet 4 mg PO Q8H PRN PRN (Reason: nausea/vomiting) sulfamethoxazole-trimethoprim 800-160 mg tablet 1 tab PO MOWEFR Patient Comments: Takes MWF preventative torsemide 20 mg tablet 40 mg PO BID fluticasone propionate 50 mcg/actuation spray,suspension 2 spray INTRANASAL DAILY levothyroxine 25 mcg tablet 25 mcg PO DAILY meloxicam 15 mg tablet 15 mg PO DAILY ergocalciferol (vitamin D2) 1,250 mcg (50,000 unit) capsule 1,250 mcg PO QWEEK cholecalciferol (vitamin D3) 125 mcg (5,000 unit) capsule 125 mcg PO DAILY DEKAs Plus (folic acid) 200 mcg-1,000 mcg-10 mg capsule 1 cap PO Primary Care Provider: Thalia El Referrals: Thalia El, DO [Primary Care Provider, Family Practice] Activity Restrictions/Additional Instructions: Sutures need to be removed in approximately 10 days. Please follow-up with your family care doctor or return to the ER for wound check and removal. At this time you do not require antibiotics. If you develop worsening pain, redness, swelling or fevers please return immediately to the emergency room for repeat evaluation. Print Language: Andorran Disposition Disposition: Home, Self Care
[2025-02-01] MEDS: Lidocaine 1% (20 ml mdv) 20 ML Vial INFILT (17:06)
== END 2025-02-01 18:02 | disposition home or self-care (01) ==
PROVIDERS: Emergency Provider Emergency Medicine; PCP Family Medicine; Visit Provider Emergency Medicine
DX: S61.012A Laceration without foreign body of left thumb without damage to nail, initial encounter (principal); W26.8XXA Contact with other sharp object(s), not elsewhere classified, initial encounter; Y93.89 Activity, other specified
CPT/HCPCS: 12001; 99283

== ENCOUNTER 2025-02-21 08:01 | Outpatient (CLI) | payer MEDICAID, SELFPAY ==
[2025-02-21] MEDS: 0.9% NaCl Peripheral Flush Adult IV (09:04)
[2025-02-21] MEDS: DiphenhydrAMINE 50 MG/ML Syringe 25 MG IV (09:04)
[2025-02-21] MEDS: Immune Globulin 20 gm 20 GM/200 ML VIAL IV (09:30)
[2025-02-21] MEDS: Immune Globulin 10 gm 10 GM/100 ML VIAL IV (12:25)
[2025-02-21] MEDS: Albumin Human 25% (100 mL) 25 GM/100 ML BAG IV (13:19)
[2025-02-21 14:50] VITALS: BP 96/77; PULSE 74; RESP 16; TEMP 35.9; O2SAT 94
== END 2025-02-21 23:59 | disposition home or self-care (01) ==
LOC: MEDOUTP 08:01
PROVIDERS: PCP Family Medicine; Referring Provider Internal Medicine; Visit Provider Internal Medicine
DX: D83.9 Common variable immunodeficiency, unspecified (principal); D80.1 Nonfamilial hypogammaglobulinemia; K90.49 Malabsorption due to intolerance, not elsewhere classified
CPT/HCPCS: 96366 ×3; 96375; 96365; 96367; P9047; A4216; J1568

== ENCOUNTER 2025-03-14 07:57 | Outpatient (CLI) | payer MEDICAID, SELFPAY ==
[2025-03-14 08:14] VITALS: BP 115/71; PULSE 55; RESP 16; TEMP 35.9; O2SAT 97; BMI 22.2
[2025-03-14] MEDS: 0.9% NaCl Peripheral Flush Adult IV ×2 (08:21→08:52)
[2025-03-14] MEDS: 0.9% NaCl IVPB Med Flush (100mL) 15 ML IV (08:52)
[2025-03-14] MEDS: DiphenhydrAMINE 50 MG/ML Syringe 25 MG IV (08:54)
[2025-03-14] MEDS: Immune Globulin 20 gm 20 GM/200 ML VIAL IV (09:22)
[2025-03-14] MEDS: Immune Globulin 10 gm 10 GM/100 ML VIAL IV (12:14)
[2025-03-14] MEDS: Vedolizumab 300 MG in 0.9% Normal Saline (250mL Bag) 250 ML 500 MG IV (13:02)
[2025-03-14 13:45] VITALS: BP 128/73; PULSE 63; RESP 16; TEMP 36.1; O2SAT 98
== END 2025-03-14 23:59 | disposition home or self-care (01) ==
LOC: MEDOUTP 07:57
PROVIDERS: PCP Family Medicine; Referring Provider Internal Medicine; Visit Provider Internal Medicine
DX: D83.9 Common variable immunodeficiency, unspecified (principal)
CPT/HCPCS: 96365; 96366; 96367; 96375; A4216; J1568; J3380

== ENCOUNTER 2025-03-28 15:39 | Emergency (ER) | payer MEDICAID, SELFPAY ==
[2025-03-28 15:39] VITALS: PULSE 75; RESP 16; TEMP 36.8; O2SAT 96; BMI 23.8
--- NOTE | 2025-03-28 16:15 | EDS_ITS ---
HPI HPI - GI History of Present Illness Chief Complaint: Foreign Body Detail of Chief Complaint: Chicken fajita meat stuck in her throat. Informant: patient Abdominal Pain/Flank Pain Onset: Today and Hours (Around 11 AM she was eating chicken fajitas for lunch.) Context: Gradual Onset Timing: Continuous Current Severity: Mild Maximum Severity: Mild Nausea/Vomiting/Emesis GI Symptom: Positive for Nausea and Vomiting Severity: Mild Diarrhea/Melena/Hematochezia GI Symptom: Negative for Diarrhea, Melena or Hematochezia Associated Symptoms Associated Symptoms: Negative for Dysuria, Frequency, Hematuria or Urgency Narrative Narrative: 39-year-old female history of cirrhosis and common variable immunodeficiency disease. Was eating chicken fetus today for lunch or 03/18/1928 had stuck in her throat. Prior history of it is always resolved in the past. She has had upper and lower endoscopy in the past but never for food bolus. She denies any prior esophageal surgery. She has thrown up. But believes it still stuck. Prior similar symptoms: Yes Recent Illness/Hospitalization: No PFSH PFS Medical History Wears glasses Depression Anxiety Diabetes Fatty liver Cirrhosis Easy bruising Restless legs Seizures Chronic diarrhea Gastric reflux Non-smoker Shortness of breath on exertion Leg cramps History of pain when walking History of edema Bowel obstruction CVID (common variable immunodeficiency) Ascites Liver disease Malabsorption due to intolerance, not elsewhere classified Abdominal pain Diarrhea Protein deficiency Home Medications ?Medication ?Instructions ?Recorded ?Last Taken ?Type hyoscyamine sulfate 0.125 mg 0.125 mg PO TID PRN abdom ial pin 01/17/21 05/20/22 Rx tablet (Levsin) #30 tabs sertraline 50 mg tablet 50 mg PO QHS MOOD/ANXIETY 05/19/22 History copper gluconate 2 mg capsule 2 mg PO DAILY supplement 08/28/23 Unknown History cyanocobalamin (vitamin B-12) 1,000 mcg PO DAILY vitam in 08/28/23 Unknown History 1,000 mcg capsule diphenoxylate-atropine 2.5 2 tab PO Q6H diarrhea 08/27 Unknown History mg-0.025 mg tablet epinephrine 0.3 mg/0.3 mL 0.3 mg IM PRN allergies 08/07 07/01 Unknown History injection, auto-injector human serum albumin diluent 0.03 % ml .Route 08/28/23 Unknown History injection solution immune globulin (human) (IgG) 10 10 g IV QMONTH Unknown History gram intravenous solution levonorgestrel (Mirena) 1 device intrauterine ONCE 0 08/28/23 Unknown History magnesium L-lactate 84 mg 84 mg PO TID supplement 08/07 07/01 Unknown History tablet,extended release multivitamin 1 tab PO DAILY vitamin 08/27 Unknown History vitamin B complex 1 cap PO DAILY vitamin 08/27 Unknown History ondansetron HCl 4 mg tablet 4 mg PO Q8H PRN PRN nausea /vomiting 11/18/23 Unknown History sulfamethoxazole 800 1 tab PO MOWEFR 11/18/23 Unk nown History mg-trimethoprim 160 mg tablet torsemide 20 mg tablet 40 mg PO BID 01/12/24 Unknow n History spironolactone 100 mg tablet 50 mg PO QAM 08/09/24 Unk nown History fluticasone propionate 50 2 spray intranasal DAILY Unknown History mcg/actuation nasal spray,suspension levothyroxine 25 mcg tablet 25 mcg PO DAILY 10/31/24 U nknown History cholecalciferol (vitamin D3) 125 125 mcg PO DAILY 01/07 11/29 Unknown History mcg (5,000 unit) capsule ergocalciferol (vitamin D2) 1,250 1,250 mcg PO QWEEK 0 02/01/25 Unknown History mcg (50,000 unit) capsule meloxicam 15 mg tablet 15 mg PO DAILY 02/01/25 Unkn own History multivit-minerals no.53-FA 200 1 cap PO 02/01/25 Unkno wn History mcg-vit K 1,000 mcg-coQ10 10 mg capsule (DEKAs Plus (folic acid)) Allergy/AdvReac Type Severity Reaction Status Date / Time adhesive tape Allergy Swelling Verified 03/28/25 15:39 hydrocodone Allergy Angioedema Verified 03/28/25 15:39 metformin Allergy Diarrhea Verified 03/28/25 15:39 oxycodone Allergy Angioedema Verified 03/28/25 15:39 guaifenesin (From Mucinex) AdvReac Other Verified 03/28/25 15:39 Family History Father Diabetes Mother Diabetes Surgical History Status post hysteroscopy (~10/01/24) H/O dilation and curettage Hx of myringotomy History of vascular access device H/O neck surgery H/O section Social History household members: spouse number of children: 4 current occupation: [employer] Smoking Status: Never smoker alcohol intake: never substance use type: does not use seatbelt use: always do you feel safe at home: Yes 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 Constitutional Constitutional ED: Denies chills or fever(s) ENT ENT ED: Denies ear pain Cardiovascular Cardiovascular: Denies chest pain Respiratory/Chest Respiratory/Chest: Denies cough or dyspnea Gastrointestinal Gastrointestinal: Reports diarrhea, nausea and vomiting; Denies abdominal pain or constipation Genitourinary Genitourinary ED: Denies dysuria or hematuria Musculoskeletal Musculoskeletal: Denies arthralgias Integumentary Denies abscess Neurologic Neurologic: Denies headache(s) Psychiatric Psychiatric: Denies anxiety Endocrine Endocrinology: Denies polydipsia, polyphagia or polyuria Hematologic/Lymphatic Hematologic/Lymphatic: Denies easy bleeding, easy bruising or lymphadenopathy Allergic/Immunologic Allergic/Immunologic ED: Denies mouth swelling, tongue swelling or urticaria EXAM Physical Exam Narrative Exam Narrative: 39-year-old female sitting upright in bed vital signs stable afebrile. No acute distress. Pulse ox 96% on room air no hypoxia. H EENT exam pupils round react light. Moist mucous membranes. Posterior pharynx unremarkable. Neck nontender. Trachea midline. Lungs clear to auscultation. Heart regular rhythm rate about 75 no murmur. Chest wall ribs nontender. Abdomen soft nontender. No peritoneal signs. Back nontender. Moving all 4 extremities. Nontender no edema normal strength. Neurologically she is awake alert. Answer questions following commands. Const Vital Signs: 03/28/25 15:39 Temperature 98.2 F Temperature Source Oral Pulse Rate 75 Respiratory Rate 16 Pulse Ox 96 Oxygen Delivery Method Room Air MDM MDM MDM Narrative Medical decision making narrative: 39-year-old with esophageal meat Kelly bolus. Clinically stable. Will try glucagon. I will speak to GI on-call. Glucagon does not work she may need upper endoscopy. Repeat exam patient was given glucagon doing well. Feels that it resolved. I gave her a glass of water she took several big swallows of the water without any difficulty. I think the esophageal food bolus is passed. Should be discharged to home given Protonix and a prescription of Protonix and follow-up with her GI physicians. She knows to return if worse. To food thoroughly, slowly and cut it up in small pieces. History & Record Review Discussion w/independent historian: Patient Discharge Plan Triage Chief Complaint: Foreign Body ED Provider: Donald Roland Dx/Rx/DC Orders Prescriptions: No Action copper gluconate 2 mg capsule 2 mg PO DAILY diphenoxylate-atropine 2.5-0.025 mg tablet 2 tab PO Q6H magnesium L-lactate 84 mg tablet extended release 84 mg PO TID immune globulin (human) (IgG) 10 gram recon soln 10 g IV QMONTH Rx Instructions: 10 grams intravenously; IV every 30 days 100ml epinephrine 0.3 mg/0.3 mL auto-injector 0.3 mg IM PRN Rx Instructions: 0.3 mg intramuscularly; vitamin B complex Capsule 1 cap PO DAILY multivitamin Tablet 1 tab PO DAILY cyanocobalamin (vitamin B-12) 1,000 mcg capsule 1,000 mcg PO DAILY Mirena 21 mcg/24 hours (8 yrs) 52 mg intrauterine device 1 device intrauterine ONCE Rx Instructions: as a single dose human serum albumin diluent 0.03 % solution .Route Patient Comments: pt supposed to get it 11/23/23 Rx Instructions: IV fusion- monthly- dose not sure spironolactone 100 mg tablet 50 mg PO QAM hyoscyamine sulfate [Levsin] 0.125 mg tablet 0.125 mg PO TID PRN (Reason: abdomial pin) Qty: 30 0RF sertraline 50 mg tablet 50 mg PO QHS ondansetron HCl 4 mg tablet 4 mg PO Q8H PRN PRN (Reason: nausea/vomiting) sulfamethoxazole-trimethoprim 800-160 mg tablet 1 tab PO MOWEFR Patient Comments: Takes MWF preventative torsemide 20 mg tablet 40 mg PO BID fluticasone propionate 50 mcg/actuation spray,suspension 2 spray INTRANASAL DAILY levothyroxine 25 mcg tablet 25 mcg PO DAILY meloxicam 15 mg tablet 15 mg PO DAILY ergocalciferol (vitamin D2) 1,250 mcg (50,000 unit) capsule 1,250 mcg PO QWEEK cholecalciferol (vitamin D3) 125 mcg (5,000 unit) capsule 125 mcg PO DAILY DEKAs Plus (folic acid) 200 mcg-1,000 mcg-10 mg capsule 1 cap PO Primary Care Provider: Thalia El Referrals: Thalia El, DO [Primary Care Provider, Family Practice] Print Language: Guamanian
[2025-03-28] MEDS: Glucagon 1 MG/ML Syringe IV (16:19)
== END 2025-03-28 17:52 | disposition home or self-care (01) ==
PROVIDERS: Emergency Provider Emergency Medicine; PCP Family Medicine; Visit Provider Emergency Medicine
DX: T18.128A Food in esophagus causing other injury, initial encounter (principal); X58.XXXA Exposure to other specified factors, initial encounter
CPT/HCPCS: 99283; A4216; J1610

== ENCOUNTER 2025-04-07 08:43 | Outpatient (CLI) | payer MEDICAID, SELFPAY ==
[2025-04-07 09:28] VITALS: BP 120/71; PULSE 71; RESP 18; TEMP 36.6; O2SAT 97
[2025-04-07 09:32] VITALS: BP 120/71; PULSE 71; RESP 18; TEMP 36.6; O2SAT 97; BMI 23.8
[2025-04-07 09:36] LABS: Hematocrit 42.8 % (37-47); Hemoglobin 15.0 g/dL (12.0-15.0); Immature Granulocytes Count 0.010 X10^3/uL (0.0-0.0); Mean Corp Hgb Conc 35.0 g/dL (32-36); Mean Corpuscular Volume 91.8 fL (81-99); Mean Platelet Vol. 10.0 fl (6.2-12.0); NRBC Flagged by Analyzer 0 % (0-5); POSITIVE DIFFERENTIAL YES; Platelet Count 347 K/mm3 (150-450); RBC Distribution Width CV 12.6 % (11.6-14.6); RBC Distribution Width SD 41.9 fl (35.1-43.9); Red Blood Count 4.66 M/mm3 (4.2-5.4); White Blood Count 5.3 K/mm3 (4.4-11.0)
[2025-04-07] MEDS: DiphenhydrAMINE 50 MG/ML Syringe 25 MG IV (10:04)
[2025-04-07 10:22] LABS: AST(SGOT) 46 U/L (<=31); Alanine Aminotransfer ALT/SGPT 40 U/L (<=34); Albumin, Serum 2.4 g/dL (3.5-5.0); Alkaline Phosphatase 74 U/L (35-104); Anion Gap 6 (5-15); BUN 11 mg/dL (4-19); BUN/Creat Ratio 26.2 RATIO (10-20); Calcium,Total 6.3 mg/dL (7.6-11.0); Carbon Dioxide 24.0 mmol/L (21.0-32.0); Chloride 107 mmol/L (98-108); Estimated Creatinine Clearance 128.67 ml/min (50-250); Globulin 1.9 g/dL (2.2-4.2); Glucose 169 mg/dL (70-99); Potassium 4.4 mmol/L (3.3-5.1)
[2025-04-07] MEDS: Immune Globulin 20 gm 20 GM/200 ML VIAL IV (10:35)
[2025-04-07] MEDS: Immune Globulin 10 gm 10 GM/100 ML VIAL IV (13:22)
[2025-04-07] MEDS: Albumin Human 25% (100 mL) 25 GM/100 ML BAG IV (14:27)
[2025-04-07 16:17] VITALS: BP 115/66; PULSE 53; RESP 18; TEMP 36.4; O2SAT 94
[2025-04-08 08:08] LABS: Immunoglobulin G 464 mg/dL (586-1602)
== END 2025-04-07 23:59 | disposition home or self-care (01) ==
PROVIDERS: PCP Family Medicine; Referring Provider Student in an Organized Health Care Education/Training Program; Visit Provider Student in an Organized Health Care Education/Training Program
DX: D80.1 Nonfamilial hypogammaglobulinemia (principal); D83.9 Common variable immunodeficiency, unspecified; K90.49 Malabsorption due to intolerance, not elsewhere classified
CPT/HCPCS: 36415; 80053; 82784; 85025; 96365; 96366; 96367; 96375; P9047; A4216; J1568

== ENCOUNTER 2025-04-29 07:55 | Outpatient (CLI) | payer MEDICAID, SELFPAY ==
[2025-04-29 08:04] VITALS: BP 128/73; PULSE 71; RESP 16; TEMP 35.7; O2SAT 97; BMI 24.2
[2025-04-29] MEDS: 0.9% NaCl Peripheral Flush Adult IV (08:07)
[2025-04-29] MEDS: DiphenhydrAMINE 50 MG/ML Syringe 25 MG IV (08:16)
[2025-04-29] MEDS: 0.9% NaCl IVPB Med Flush (100mL) 15 ML IV (08:18)
[2025-04-29] MEDS: Immune Globulin 20 gm 20 GM/200 ML VIAL IV (08:49)
[2025-04-29] MEDS: Immune Globulin 10 gm 10 GM/100 ML VIAL IV (11:31)
[2025-04-29] MEDS: Albumin Human 25% (100 mL) 25 GM/100 ML BAG IV (12:18)
[2025-04-29 13:49] VITALS: BP 118/65; PULSE 84; TEMP 36.2
== END 2025-04-29 23:59 | disposition home or self-care (01) ==
LOC: MEDOUTP 07:55
PROVIDERS: PCP Family Medicine; Referring Provider Internal Medicine; Visit Provider Internal Medicine
DX: D83.9 Common variable immunodeficiency, unspecified (principal)
CPT/HCPCS: 96365; 96366; 96367; 96375; P9047; A4216; J1568